=== PATIENT | female | born 1945 | race Caucasian/White ===

== ENCOUNTER → 2019-12-06 11:54 | Outpatient (BNVA) | payer MEDICARE, SELFPAY | PROVIDERS: Family Provider Nurse Practitioner; PCP Nurse Practitioner; Visit Provider Nurse Practitioner | DX: I10 Essential (primary) hypertension (principal); J44.9 Chronic obstructive pulmonary disease, unspecified; R20.9 Unspecified disturbances of skin sensation; F17.200 Nicotine dependence, unspecified, uncomplicated; F41.9 Anxiety disorder, unspecified; F32.9 Major depressive disorder, single episode, unspecified | CPT/HCPCS: 80053; 80061; 82607; 85025 ==

== ENCOUNTER → 2020-03-27 13:32 | Outpatient (BNVA) | payer MEDICARE, SELFPAY | PROVIDERS: Family Provider Nurse Practitioner; PCP Nurse Practitioner; Visit Provider Podiatrist Foot & Ankle Surgery | DX: M79.671 Pain in right foot (principal); M79.672 Pain in left foot | CPT/HCPCS: 73630 ==

== ENCOUNTER → 2020-07-26 14:47 | Outpatient (BNVA) | payer MEDICARE, SELFPAY | PROVIDERS: Family Provider Nurse Practitioner; PCP Nurse Practitioner; Visit Provider Nurse Practitioner | DX: E03.9 Hypothyroidism, unspecified (principal); I10 Essential (primary) hypertension | CPT/HCPCS: 80053; 80061; 84443 ==

== ENCOUNTER → 2021-01-22 14:37 | Outpatient (BNVA) | payer MEDICARE, SELFPAY | PROVIDERS: Family Provider Nurse Practitioner; PCP Nurse Practitioner; Visit Provider Nurse Practitioner | DX: I10 Essential (primary) hypertension (principal); J44.9 Chronic obstructive pulmonary disease, unspecified; E78.2 Mixed hyperlipidemia; F41.9 Anxiety disorder, unspecified | CPT/HCPCS: 80053; 80061; 85025 ==

== ENCOUNTER → 2021-01-25 13:38 | Outpatient (BNVA) | payer MEDICARE, SELFPAY | PROVIDERS: Family Provider Nurse Practitioner; PCP Nurse Practitioner; Visit Provider Nurse Practitioner | DX: M79.671 Pain in right foot (principal) | CPT/HCPCS: 73630 ==

== ENCOUNTER 2021-04-29 13:52 | Outpatient (CLI) | payer MEDICARE, SELFPAY ==
--- NOTE | 2021-04-29 14:00 | MM_ITS ---
WS: [id number] BILATERAL DIGITAL SCREENING MAMMOGRAPHY WITH CAD CLINICAL INFORMATION: Z12.39 - Encounter for other screening for malignant neop... HISTORY: Screening mammogram. No current complaints. COMPARISON: TECHNIQUE: Bilateral CC and MLO views. FINDINGS: Scattered fibroglandular densities bilaterally. Punctate and lucent centered calcifications. Biopsy m arker right breast with stable 7 mm ovoid asymmetry. Vascular calcification. No suspicious focal mass , asymmetry, calcifications, or architectural distortion. No evidence of malignancy. MM/[place] [id number] IMPRESSION: BI-RADS: 2-Benign FOLLOW UP: 1 Year Follow-up Recommend return to annual screening mammography.
== END 2021-04-29 13:53 | disposition home or self-care (01) ==
LOC: RADSHAW 13:55
PROVIDERS: Family Provider Nurse Practitioner; PCP Nurse Practitioner; Visit Provider Nurse Practitioner
DX: Z12.31 Encounter for screening mammogram for malignant neoplasm of breast (principal)
CPT/HCPCS: 77067

== ENCOUNTER 2021-05-16 14:56 | Outpatient (CLI) | payer MEDICARE, SELFPAY ==
--- NOTE | 2021-05-16 15:00 | USCV_ITS ---
Heather Ramesh Age: 75 Gender: F : 1945 Exam Date: 05/16/2021 15:23 Ordering Phys: Juliann Dejesus Technologist: Ju Rodriguez Exam Location: [facility] – [place] Indication: ESSENTIAL PRIMARY HYPERTENSION BP: 130 / 88 HR: 83 Rhythm: Sinus Technical Quality: Adequate MEASUREMENTS (Male / Female) Normal Values 2D ECHO LV Diastolic Diameter PLAX 3.5 cm 4.2 - 5.9 / 3.9 - 5.3 cm LV Systolic Diameter PLAX 1.0 cm IVS Diastolic Thickness 1.1 cm 0.6 - 1.0 / 0.6 - 0.9 cm IVS Systolic Thickness 1.7 cm LVPW Diastolic Thickness 0.9 cm 0.6 - 1.0 / 0.6 - 0.9 cm LVPW Systolic Thickness 1.5 cm LVOT Diameter 2.0 cm LV Ejection Fraction 2D Teich 96.0 % LV Ejection Fraction MOD 2C 76.0 % LV Ejection Fraction 2C AL 75.9 % LA Diameter 2.7 cm LA Width 2.4 cm LA Height 4.6 cm RA Width 3.7 cm RA Height 4.2 cm Aorta at Sinotubular Diameter 2.7 cm M-MODE Aortic Annulus Diameter 2.5 cm LA Ao Ratio MM 1.1 DOPPLER AV Peak Velocity 227.0 cm/s LVOT Peak Velocity 134.0 cm/s AV Area Cont Eq vti 2.2 cm squared AV Area Cont Eq pk 1.9 cm squared MV Peak Velocity 127.0 cm/s MV Area PHT 2.8 cm squared Mitral E to A Ratio 0.8 MV E' Velocity 52.0 cm/s Mitral E to MV E' Ratio 11.2 Mitral E to LV E' Lateral Ratio 10.5 Mitral E to LV E' Septal Ratio 12.1 TR Peak Velocity 121.7 cm/s TR Peak Gradient 5.9 mmHg Right Atrial Pressure 3.0 mmHg Pulmonary Artery Systolic Pressu 8.9 mmHg PV Peak Velocity 75.0 cm/s RV Acceleration Time 0.1 s RV Ejection Time 0.2 s RV AcT/ET 0.3 FINDINGS Left Ventricle Normal left ventricular cavity size. Normal left ventricular systolic function. No regional wall motion abnormalities. Left ventricular ejection fraction is estimated at 60%. Grade I/IV diastolic dysfunction (abnormal relaxation filling pattern), normal to mildly elevated filling pressures. Right Ventricle The right ventricle is normal in size and function. Right Atrium The right atrium is normal in size. Left Atrium The left atrium is normal in size. Mitral Valve Moderately thickened mitral valve. Moderate mitral annular calcification. No mitral valve stenosis. Trace mitral valve regurgitation. Aortic Valve Severe aortic valve calcification. No aortic valve stenosis. No aortic valve regurgitation. Tricuspid Valve Trace tricuspid valve regurgitation. Pulmonic Valve Structurally normal pulmonic valve without significant stenosis. There is no pulmonic regurgitation. Pericardium Normal pericardium without effusion. Aorta Normal ascending aorta dimension. CONCLUSIONS 1-Normal left ventricular cavity size. Normal left ventricular systolic function. No regional wall motion abnormalities. Left ventricular ejection fraction is estimated at 60%. Grade I/IV diastolic dysfunction (abnormal relaxation filling pattern), normal to mildly elevated filling pressures. 2-Severe aortic valve calcification. No aortic valve stenosis. No aortic valve regurgitation. 3-Moderately thickened mitral valve. Moderate mitral annular calcification. No mitral valve stenosis. Trace mitral valve regurgitation. 4-There is no pericardial effusion. 5-Pulmonary artery systolic pressure is within normal limits. 6-Right atrial pressure is around 5 mm of mercury. 7-There are no prior echocardiogram studies to compare. Ari Zavala MD (Electronically Signed) Final Date: 17 May 2021 19:05 S
== END 2021-05-16 14:57 | disposition home or self-care (01) ==
LOC: US 15:02
PROVIDERS: PCP Nurse Practitioner; Visit Provider Nurse Practitioner
DX: I10 Essential (primary) hypertension (principal); I08.0 Rheumatic disorders of both mitral and aortic valves
CPT/HCPCS: 80053; 80061; 93306

== ENCOUNTER 2021-08-09 07:55 | Outpatient (CLI) | payer MEDICARE, SELFPAY ==
--- NOTE | 2021-08-09 08:00 | USCV_ITS ---
Heather Ramesh Age: 75 Gender: F : 1945 Exam Date: 08/09/2021 08:24 Ordering Phys: Ari Zavala MD ([email or web address]) Technologist: Ju Rodriguez [place] [facility] [place]: carotid stenosis or occlusion of unspecified artery Risk Factors: Previous Vascular Surgery: Right Brachial BP: / Left Brachial BP: / Right Left Velocity (cm/s) Spectral Plaque Velocity (cm/s) Spectral Plaque Syst/Diast Broadening Syst/Diast Broadening 49.70/ 12.40 Prox CCA 63.20 / 14.50 59.00/ 15.50 Hetro Mid CCA 64.10 / 14.50 56.70/ 12.40 Homo Distal CCA 36.50 / 10.80 Hetro 71.00/ 21.00 Prox ICA 72.80 / 23.50 Hetro 84.60/ 17.10 Mid ICA 47.90 / 14.90 70.90/ 14.30 Distal ICA 71.10 / 26.50 131.50 ECA 153.10 1.43 ICA/CCA 1.14 Antegrade Vertebral Antegrade 58.10/ 16.20 cm/s 39.30/ 15.40 cm/s Tri Subclavian Tri 90.60 131.5 0 CONCLUSIONS Right ICA stenosis <50%. Moderate atheromatous plaque right carotid bulb/ICA. Left ICA stenosis <50%. Moderate atheromatous plaque left carotid bulb/ICA. Normal antegrade Doppler flow noted in the right vertebral artery. Normal antegrade Doppler flow noted in the left vertebral artery. Minesh Mahoney MD (Electronically Signed) Final Date: 09 August 2021 09:43 S
== END 2021-08-09 07:56 | disposition home or self-care (01) ==
LOC: US 07:59
PROVIDERS: PCP Nurse Practitioner; Visit Provider Internal Medicine Cardiovascular Disease
DX: I65.23 Occlusion and stenosis of bilateral carotid arteries (principal)
CPT/HCPCS: 93880

== ENCOUNTER → 2021-09-19 10:37 | Outpatient (BNVA) | payer MEDICARE, SELFPAY | PROVIDERS: PCP Nurse Practitioner; Visit Provider Nurse Practitioner | DX: I10 Essential (primary) hypertension (principal) | CPT/HCPCS: 80053; 80061; 84443; 85025 ==

== ENCOUNTER → 2022-02-24 15:54 | Outpatient (BNVA) | payer OTHER, SELFPAY | PROVIDERS: PCP Nurse Practitioner; Visit Provider Nurse Practitioner | DX: J44.9 Chronic obstructive pulmonary disease, unspecified (principal); I10 Essential (primary) hypertension; E78.2 Mixed hyperlipidemia; F41.9 Anxiety disorder, unspecified; I73.9 Peripheral vascular disease, unspecified | CPT/HCPCS: 80053; 80061; 85025 ==

== ENCOUNTER → 2022-07-14 09:23 | Outpatient (BNVA) | payer OTHER, SELFPAY | PROVIDERS: PCP Nurse Practitioner; Visit Provider Nurse Practitioner | DX: J44.9 Chronic obstructive pulmonary disease, unspecified (principal); I10 Essential (primary) hypertension; I73.9 Peripheral vascular disease, unspecified; E78.2 Mixed hyperlipidemia; F41.9 Anxiety disorder, unspecified; Z12.39 Encounter for other screening for malignant neoplasm of breast; F32.9 Major depressive disorder, single episode, unspecified; Z87.891 Personal history of nicotine dependence | CPT/HCPCS: 80053; 80061; 84443; 85025 ==

== ENCOUNTER 2022-08-30 17:25 | Inpatient (IN) | payer MEDICARE, SELFPAY ==
[2022-08-30] VITALS (8 sets, daily range): BP systolic 109–145; BP diastolic 68–81; PULSE 69–95; RESP 16–18; TEMP 36.6–36.7; O2SAT 91–98; BMI 24.5
--- NOTE | 2022-08-30 18:53 | XRR_ITS ---
PROCEDURE INFORMATION: Exam: XR Left Hip Exam date and time: 08/30/2022 7:11 PM Age: 77 years old Clinical indication: Injury or trauma; Fall; Blunt trauma (contusions or hematomas); Left; Hip; Additional info: Fall with left hip pain TECHNIQUE: Imaging protocol: Radiologic exam of the Left hip. Views: 2 or 3 views hip with pelvis when performed. COMPARISON: No relevant prior studies available. FINDINGS: Bones/joints: Left hip basicervical somewhat impacted displaced fracture. Soft tissues: Unremarkable. XR/XR hip LT 2-3V wo/w pel* [id number] IMPRESSION: Left hip basicervical somewhat impacted displaced fracture.
--- NOTE | 2022-08-30 19:04 | ED_ITS ---
Documented by User: SHARON Helton 08/31/22 01:09 HPI - Fall General: Chief Complaint: Fall Stated Complaint: Fall, left hip pain Time Seen by Provider: 08/30/22 18:53 History of Present Illness: Patient is a 77-year-old female who comes to the ED with left hip pain after fall. Past medical history of COPD and hypertension. Patient is not on any blood thinners at home. Before fall she was ambulatory without any assisting device. Fall occurred just prior to arrival. Patient says she was walking in her house and tripped through one of the doorways. She tried to catch her self, but her left hip hit the ground. She denies hitting her head, any loss of consciousness or headache. Since fall she is unable to bear any weight on left leg. She says at rest and sitting her pain is a 3 out of 10 but if she tries to do any weightbearing is a 10 out of 10. She also has a laceration on her left index finger. Denies any other injuries. She has not taken anything for pain before coming to the ED. patient says her last tetanus was within the past 10 years. Associated symptoms-after fall: Denies abdominal pain, chest pain, headache(s), hematuria or neck pain Review of Systems Const: Denies: fever(s), chills or fatigue Eyes: Denies: change in vision or eye discomfort ENMT: Denies: throat pain, odynophagia, nasal discharge or nasal congestion Card: Denies: chest pain, palpitations, edema, swelling of feet/ankles, dyspnea on exertion or orthopnea Resp: Denies: dyspnea, productive cough or non-productive cough GI: Denies: abdominal pain, nausea, vomiting, diarrhea, constipation or hematochezia : Denies: flank pain, dysuria or hematuria Musc: Reports: extremity pain (Left hip pain); Denies: neck pain, back pain or extremity swelling Skin/Breast: Denies: rash or new lesions Neuro: Denies: headache(s), numbness in extremities or weakness in extremities PFS ED PFSH: Medical History (Updated 09/03/22 @ 00:02 by ) Anxiety and depression COPD (chronic obstructive pulmonary disease) Essential (primary) hypertension Left displaced femoral neck fracture Mixed hyperlipidemia Murmur Personal history of nicotine dependence Vitamin D deficiency Surgical History History of breast biopsy Left Negative at age 20's Family History Family/Other Nicotine addiction Social History Smoking and tobacco status: current every day smoker cigarettes Packs smoked per day: 0.5 Second hand smoke exposure: Yes Smoking risk assessment/counseling performed?: Yes Alcohol intake: never Desire information about alcohol rehabilitation?: No Counseling given: No Desire information about substance/drug rehabilitation?: No Counseling given: No Adopted: No Caregiver/support person: No Lives independently: Yes Household members: spouse Housing: House Marital status: Number of children: 6 service: No Current occupational status: unemployed Current occupational exposures/hazards: No Pets and animals: Yes History of recent travel: No Current gender identity: Female Physical Exam Const: COMMON NORMALS: patient oriented x3 and alert GENERAL APPEARANCE: cooperative HENMT: COMMON NORMALS: normocephalic HEAD & SCALP: normocephalic MOUTH: Normal oral and palatal mucosa present THROAT: posterior oropharynx normal and uvula midline Neck/C-Spine: COMMON NORMALS: supple GENERAL: Yes normal visual inspection Resp: COMMON NORMALS: normal respiratory effort, No retractions, No use of acc essory muscles and clear to auscultation bilaterally AUSCULTATION: clear to auscultation bilaterally Cardio: COMMON NORMALS: regular rate, regular rhythm, S1 normal heart sound present, S2 normal heart sound present, No gallops present (Cardio), No clicks present (Cardio), No murmurs present (Cardio) and Peripheral pulses 2+ throughout RATE: regular rate RHYTHM: regular rhythm HEART SOUNDS: S1 normal heart sound present and S2 normal heart sound present PERIPHERAL PULSES: Peripheral pulses 2+ throughout GI: COMMON NORMALS: Normal to inspection, nondistended, normoactive bowel sounds present, Soft to palpation, non-tender and no masses PALPATION: Yes Soft to palpation : COMMON NORMALS: Yes no CVA tenderness BLADDER/KIDNEY EXAM: Yes no CVA tenderness Back/Pelvis: COMMON NORMALS: no CVA tenderness Extremity: NARRATIVE EXTREMITY EXAM: Tenderness over lateral aspect of left hip. Pain with range of motion left hip. Neurovascular intact distally. No visible left leg shortening or external rotation noted. Neuro: COMMON NORMALS: patient oriented x3 SENSORIUM/ORIENTATION: Yes alert Skin: GENERAL SKIN EXAM: dry skin Course Consultations: Consultation #1: I contacted Dr. Hercules the orthopedic surgeon corrosion prevention metal sprayer and told him about patient case. He wanted hospitalist to admit patient and he would consult for surgery tomorrow morning. Vital Signs: Vital signs: Vital Signs Temperature 98.1 F 09/02/22 13:46 Pulse Rate 92 09/02/22 13:46 Respiratory Rate 17 09/02/22 13:46 Blood Pressure 118/62 09/02/22 13:46 Pulse Oximetry 93 09/02/22 13:46 Oxygen Delivery Me thod 09/02/22 11:15 Oxygen Flow Rate 3 09/02/22 11:15 MDM - Fall Medical Decision Making Patient is a 77-year-old female comes to the ED with left hip pain after having a fall. Vitals are stable. Tenderness over lateral aspect of left hip. Pain with range of motion left hip. Neurovascular intact distally. No visible left leg shortening or external rotation noted. X-ray of left hip shows a basicervical impacted displaced fracture of left hip. I contacted Dr. Hercules the orthopedic surgeon corrosion prevention metal sprayer and told him about patient case. He wanted hospitalist to admit patient and he would consult for surgery tomorrow morning. Dr. Baxter placed the admitting orders. Lab Data I reviewed the patient's lab results. : 09/02/22 02:54 09/02/22 02:54 Radiology Impressions Femur X-Ray 08/30/22 19:46 IMPRESSION: Acute subcapital fracture of the left hip. Please see CT left hip report from same date. Knee X-Ray 08/30/22 19:46 IMPRESSION: No acute fracture demonstrated. Pelvis X-Ray 08/30/22 19:46 IMPRESSION: 1. Acute subcapital left hip fracture. 2. Pelvic bones appear intact. No pelvic fracture. Hip CT 08/30/22 19:53 IMPRESSION: Acute subcapital fracture of the left hip, as above. Chest X-Ray 08/30/22 20:52 IMPRESSION: 1. The lungs are hyperinflated, consistent with COPD. 2. No acute abnormality demonstrated. Hip/Pelvis X-Ray 08/31/22 10:08 IMPRESSION: Normal appearing left total hip arthroplasty. Laboratory Results WBC 17.0 10^3/uL (4.0-10.0) H 08/30/22 20:05 RBC 5.11 10^6/uL (4.1-5.3) 08/30/22 20:05 Hgb 15.2 g/dL (11.5-15.3) 08/30/22 20:05 Hct 45.5 % (37.0-47.0) 08/30/22 20:05 MCV 89.0 fl (81-99) 08/30/22 20:05 MCH 29.7 pg (28.0-34.0) 08/30/22 20:05 MCHC 33.4 g/dL (30.0-36.0) 08/30/22 20:05 RDW 12.6 % (12.1-15.1) 08/30/22 20:05 Plt Count 216 10^3/cmm (130-400) 08/30/22 20:05 MPV 9.6 fL (7.4-10.4) 08/30/22 20:05 Neut % (Auto) 88.1 % 08/30/22 20:05 Lymph % (Auto) 6.3 % 08/30/22 20:05 [place] % (Auto) 4.6 % 08/30/22 20:05 Eos % (Auto) 0.1 % 08/30/22 20:05 Baso % (Auto) 0.4 % 08/30/22 20:05 Neut # (Auto) 14.93 10^3/uL (1.8-7.7) H 08/30/22 20:05 Lymph # (Auto) 1.1 10^3/uL (0.8-4.8) 08/30/22 20:05 [place] # (Auto) 0.8 10^3/uL (0.2-0.9) 08/30/22 20:05 Eos # (Auto) 0.0 10^3/uL (0.0-0.8) 08/30/22 20:05 Baso # (Auto) 0.1 10^3/uL (0.0-0.1) 08/30/22 20:05 Nucleated RBC % (auto) 0 % 08/30/22 20:05 Nucleated RBCs # 0.0 /100WBC 08/30/22 20:05 PT Cancelled 08/30/22 20:05 INR Cancelled 08/30/22 20:05 APTT Cancelled 08/30/22 20:05 Sodium 128 mmol/L (136-145) L 08/30/22 20:05 Potassium 2.9 mmol/L (3.5-5.1) L 08/30/22 20:05 Chloride 87 mmol/L (98-107) L 08/30/22 20:05 Carbon Dioxide 29 mmol/L (22-29) 08/30/22 20:05 Anion Gap 14.9 (5-19) 08/30/22 20:05 BUN 16 mg/dL (8-23) 08/30/22 20:05 Creatinine 0.7 mg/dL (0.5-0.9) 08/30/22 20:05 GFR Calculation Not Reportable 08/30/22 20:05 Glucose 125 mg/dL (65-115) H 08/30/22 20:05 Calculated Osmolality 269 mOsm/kg (285-295) L 08/30/22 20:05 Calcium 9.9 mg/dL (8.5-10.5) 08/30/22 20:05 Magnesium 2.3 mg/dL (1.7-2.3) 08/30/22 20:05 Total Bilirubin 0.5 mg/dL (0.15-1.2) 08/30/22 20:05 AST 21 U/L (0-32) 08/30/22 20:05 ALT 8 U/L (0-33) 08/30/22 20:05 Alkaline Phosphatase 76 U/L (35-105) 08/30/22 20:05 Total Protein 7.3 g/dL (6.6-8.7) 08/30/22 20:05 Albumin 4.3 g/dL (3.5-5.2) 08/30/22 20:05 Globulin 3.0 g/dL (1.3-4.6) 08/30/22 20:05 Urine Color Dark yellow (Yellow) 08/30/22 19:35 Urine Appearance Cloudy (CLEAR) A 08/30/22 19:35 Urine pH 7 (5-7) 08/30/22 19:35 Ur Specific [place] 1.005 (1.005-1.030) 08/30/22 19:35 Urine Protein 1+ (Negative) H 08/30/22 19:35 Urine Glucose (UA) Norm (Normal) 08/30/22 19:35 Urine Ketones 1+ (Negative) H 08/30/22 19:35 Urine Blood 2+ (Negative) H 08/30/22 19:35 Urine Nitrate Negative (Negative) 08/30/22 19:35 Urine Bilirubin 1+ (Negative) H 08/30/22 19:35 Urine Urobilinogen 1 mg/dL (Negative) H 08/30/22 19:35 Ur Leukocyte Esterase 1+ (Negative) H 08/30/22 19:35 Urine RBC 5-10 /hpf (0-2) H 08/30/22 19:35 Urine WBC 5-10 /hpf (0-5) H 08/30/22 19:35 Ur Squamous Epith Cells 10-15 /hpf (0-5) H 08/30/22 19:35 Triple Phos Crystals 0-4 /hpf H 08/30/22 19:35 Amorphous Sediment 1+ /hpf 08/30/22 19:35 Urine Bacteria 1+ /hpf (NONE) H 08/30/22 19:35 Urine Mucus 1+ /hpf 08/30/22 19:35 Discharge Plan Discharge Patient Disposition: Admitted As Inpatient Admit Provider: Gabe Benavides Clinical Impression: Fracture of left hip Condition: Stable Discharge Diet: Advance as tolerated Discharge Activity: Limit activity as instructed Coding Level of Care Code [employer] Development Analyst for Chg Fwd Exam Comprehensive Documented by User: Robert Mullen MD 09/07/22 17:05 HPI - Fall General: Chief Complaint: Fall Stated Complaint: Fall, left hip pain Time Seen by Provider: 08/30/22 18:53 PFSH ED PFSH: Medical History (Updated 09/03/22 @ 00:02 by ) Anxiety and depression COPD (chronic obstructive pulmonary disease) Essential (primary) hypertension Left displaced femoral neck fracture Mixed hyperlipidemia Murmur Personal history of nicotine dependence Vitamin D deficiency Surgical History History of breast biopsy Left Negative at age 20's Family History Family/Other Nicotine addiction Social History Smoking and tobacco status: current every day smoker cigarettes Packs smoked per day: 0.5 Second hand smoke exposure: Yes Smoking risk assessment/counseling performed?: Yes Alcohol intake: never Desire information about alcohol rehabilitation?: No Counseling given: No Desire information about substance/drug rehabilitation?: No Counseling given: No Adopted: No Caregiver/support person: No Lives independently: Yes Household members: spouse Housing: House Marital status: Number of children: 6 service: No Current occupational status: unemployed Current occupational exposures/hazards: No Pets and animals: Yes History of recent travel: No Current gender identity: Female Course Vital Signs: Vital signs: Vital Signs Temperature 98.1 F 09/02/22 13:46 Pulse Rate 92 09/02/22 13:46 Respiratory Rate 17 09/02/22 13:46 Blood Pressure 118/62 09/02/22 13:46 Pulse Oximetry 93 09/02/22 13:46 Oxygen Delivery Me thod 09/02/22 11:15 Oxygen Flow Rate 3 09/02/22 11:15 MDM - Fall Medical Decision Making Patient is a 77-year-old female comes to the ED with left hip pain after having a fall. Vitals are stable. Tenderness over lateral aspect of left hip. Pain with range of motion left hip. Neurovascular intact distally. No visible left leg shortening or external rotation noted. X-ray of left hip shows a basicervical impacted displaced fracture of left hip. I contacted Dr. Hercules the orthopedic surgeon corrosion prevention metal sprayer and told him about patient case. He wanted hospitalist to admit patient and he would consult for surgery tomorrow morning. Dr. Baxter placed the admitting orders. I discussed this case with SHARON Helton. I have reviewed documentation and imaging. Robert Mullen MD Emergency Medicine Lab Data : 09/02/22 02:54 09/02/22 02:54 Radiology Impressions Femur X-Ray 08/30/22 19:46 IMPRESSION: Acute subcapital fracture of the left hip. Please see CT left hip report from same date. Knee X-Ray 08/30/22 19:46 IMPRESSION: No acute fracture demonstrated. Pelvis X-Ray 08/30/22 19:46 IMPRESSION: 1. Acute subcapital left hip fracture. 2. Pelvic bones appear intact. No pelvic fracture. Hip CT 08/30/22 19:53 IMPRESSION: Acute subcapital fracture of the left hip, as above. Chest X-Ray 08/30/22 20:52 IMPRESSION: 1. The lungs are hyperinflated, consistent with COPD. 2. No acute abnormality demonstrated. Hip/Pelvis X-Ray 08/31/22 10:08
--- NOTE | 2022-08-30 19:46 | XRR_ITS ---
PROCEDURE INFORMATION: Exam: XR Left Knee Exam date and time: 08/30/2022 8:11 PM Age: 77 years old Clinical indication: Injury or trauma; Fall; Blunt trauma; Hip; Left; Additional info: Hip fx-pre surgery imaging TECHNIQUE: Imaging protocol: Radiologic exam of the Left knee. Views: 3 views. COMPARISON: [place] [id number] ORTH 03/27/2020 1:37 PM FINDINGS: Bones/joints: Mild degenerative narrowing of the medial and lateral joint compartments. No fracture or other acute osseous abnormality. No joint effusion demonstrated. Soft tissues: Calcified enthesophyte in the distal quadriceps tendon at the patellar attachment. Coarse 2 cm calcification noted in the medial soft tissues, likely related to old injury. XR/XR knee LT 3V* [id number] IMPRESSION: No acute fracture demonstrated.
--- NOTE | 2022-08-30 19:46 | XRR_ITS ---
PROCEDURE INFORMATION: Exam: XR Pelvis Exam date and time: 08/30/2022 8:20 PM Age: 77 years old Clinical indication: Injury or trauma; Fall; Blunt trauma (contusions or hematomas); Left; Hip; Additional info: Hip fx-pre surgery imaging TECHNIQUE: Imaging protocol: Radiologic exam of the pelvis. Views: 1 or 2 view. COMPARISON: CR (PELVIS, ) 08/30/2022 7:11 PM FINDINGS: Bones/joints: Acute subcapital left hip fracture. Fracture fragments are in varus alignment. No left hip dislocation. Pelvic bones appear intact. No pelvic fracture. Soft tissues: Unremarkable. XR/XR pelvis 1-2V* [id number] IMPRESSION: 1. Acute subcapital left hip fracture. 2. Pelvic bones appear intact. No pelvic fracture.
--- NOTE | 2022-08-30 19:46 | XRR_ITS ---
PROCEDURE INFORMATION: Exam: XR Left Femur Exam date and time: 08/30/2022 8:16 PM Age: 77 years old Clinical indication: Injury or trauma; Fall; Blunt trauma; Hip; Left; Additional info: Hip fx-pre surgery imaging TECHNIQUE: Imaging protocol: Radiologic exam of the Left femur. Views: 2 views. COMPARISON: CR (LOW EXM, ) 08/30/2022 8:11 PM FINDINGS: Bones/joints: Acute subcapital fracture of the left hip. Mid/distal femur is intact. Soft tissues: The soft tissues appear unremarkable. Vasculature: There are atherosclerotic calcifications demonstrated. XR/XR femur LT min 2V* [id number] IMPRESSION: Acute subcapital fracture of the left hip. Please see CT left hip report from same date.
--- NOTE | 2022-08-30 19:53 | CTR_ITS ---
PROCEDURE INFORMATION: Exam: CT Left Lower Extremity Without Contrast, Hip Exam date and time: 08/30/2022 8:27 PM Age: 77 years old Clinical indication: Injury or trauma; Fall; Blunt trauma; Hip; Left; Additional info: Left hip fracture TECHNIQUE: Imaging protocol: CT of the Left lower extremity without contrast was performed. Exam focused on the hip. Radiation optimization: All CT scans at this facility use at least one of these dose optimization techniques: automated exposure control; mA and/or kV adjustment per patient size (includes targeted exams where dose is matched to clinical indication); or iterative reconstruction. COMPARISON: CR (PELVIS, ) 08/30/2022 7:11 PM RADIATION DOSE METRICS: Total DLP (mGy-cm): 288.51 FINDINGS: Bones/joints: Acute subcapital fracture of the left hip. The fracture is mildly impacted. Fracture fragments are in varus alignment. Mild degenerative narrowing of the left hip joint. No dislocation. Left acetabulum is intact. Soft tissues: Subcutaneous edema/contusion noted overlying the left hip. No hematoma noted. Musculature is unremarkable. Vasculature: There are atherosclerotic calcifications demonstrated. CT/CT hip LT wo con* [id number] IMPRESSION: Acute subcapital fracture of the left hip, as above.
[2022-08-30] MEDS: oxyCODONE 5 mg IR Tab/Cap PO (19:54)
[2022-08-30 20:14] LABS: Basophils # 0.1 10^3/uL (0.0-0.1); Basophils % 0.4 %; Eosinophils % 0.1 %; Hematocrit 45.5 % (37.0-47.0); Hemoglobin 15.2 g/dL (11.5-15.3); Lymphocytes # 1.1 10^3/uL (0.8-4.8); Lymphocytes % 6.3 %; Mean Corpuscular HGB Conc 33.4 g/dL (30.0-36.0); Mean Corpuscular Hemoglobin 29.7 pg (28.0-34.0); Mean Platelet Volume 9.6 fL (7.4-10.4); Monocytes # 0.8 10^3/uL (0.2-0.9); Monocytes % 4.6 %; Neutrophils # 14.93 10^3/uL (1.8-7.7); Neutrophils % 88.1 %; Nucleated Red Blood Cells % 0 %; Platelet Count 216 10^3/cmm (130-400); Red Blood Count 5.11 10^6/uL (4.1-5.3); Red Cell Distribution Width 12.6 % (12.1-15.1)
[2022-08-30 20:37] LABS: Alanine Aminotransferase 8 U/L (0-33); Albumin Level 4.3 g/dL (3.5-5.2); Alkaline Phosphatase 76 U/L (35-105); Anion Gap 14.9 (5-19); Aspartate Amino Transferase 21 U/L (0-32); Blood Urea Nitrogen 16 mg/dL (8-23); Calcium 9.9 mg/dL (8.5-10.5); Carbon Dioxide 29 mmol/L (22-29); Chloride 87 mmol/L (98-107); Glucose 125 mg/dL (65-115); Osmolality Calculated 269 mOsm/kg (285-295); Sodium 128 mmol/L (136-145); Total Bilirubin 0.5 mg/dL (0.15-1.2); Total Protein 7.3 g/dL (6.6-8.7)
[2022-08-30 20:39] LABS: Potassium 2.9 mmol/L (3.5-5.1)
--- NOTE | 2022-08-30 20:52 | XRR_ITS ---
PROCEDURE INFORMATION: Exam: XR Chest Exam date and time: 08/30/2022 9:12 PM Age: 77 years old Clinical indication: Injury or trauma; Fall; Blunt trauma (contusions or hematomas); Additional info: New o2 req TECHNIQUE: Imaging protocol: Radiologic exam of the chest. Views: 1 view. COMPARISON: No relevant prior studies available. FINDINGS: Lungs: The lungs are hyperinflated, consistent with COPD. No consolidative pulmonary infiltrates are noted. Pleural spaces: No pleural effusion. No pneumothorax. Heart/Mediastinum: No cardiomegaly. Vasculature: The thoracic aorta is atherosclerotic. Bones/joints: Degenerative thoracic spine changes are noted. XR/XR chest 1V portable [id number] IMPRESSION: 1. The lungs are hyperinflated, consistent with COPD. 2. No acute abnormality demonstrated.
[2022-08-30] MEDS: potassium chloride ER 20 mEq Tablet 40 MEQ PO (21:01)
[2022-08-30 21:16] LABS: Add Urine Microscopic? YES; Bilirubin Urine 1+ (Negative); Blood Urine 2+ (Negative); Glucose Urine UA Norm (Normal); Ketones Urine 1+ (Negative); Leukocyte Esterase Urine 1+ (Negative); Nitrate Urine Negative (Negative); Protein Urine 1+ (Negative); Specific Gravity, Urine 1.005 (1.005-1.030); Urine Appearance Cloudy (CLEAR); Urine Color Dark Yellow (Yellow); Urobilinogen Urine 1 mg/dL (Negative); pH Urine 7 (5-7)
--- NOTE | 2022-08-30 21:16 | PC.NURSE ---
Report called to WARNER Khan at [phone]
[2022-08-30 21:19] LABS: Add Urine Culture? No; Amorphous Sediment Urine 1+ /hpf; Bacteria Urine 1+ /hpf; Mucus Urine 1+ /hpf
[2022-08-30 21:21] LABS: Triple Phosphate Crystal Urine 0-4 /hpf
--- NOTE | 2022-08-30 21:24 | PM.MISC ---
Miscellaneous Note Purpose of Documentation: Orthopedic note update: Full orthopedic consult note to follow in the morning. Patient's chart reviewed. I was contacted by emergency department for patient having a left displaced femoral neck fracture. Personally reviewed and interpreted the images myself. Patient's findings consistent with a displaced left femoral neck fracture. Patient is a 77-year-old. History of COPD and hypertension. Not requiring O2 nasal cannula. Patient is on Plavix for anticoagulation. Patient is a community ambulator per the emergency department. At this point time reviewing of imaging my recommendation would be for a left hip hemiarthroplasty for early mobilization and pain control. My plan will be to do this through a posterior approach and utilizing cementation technique. Patient does have an elevated white count likely secondary to her fracture. Her hemoglobin is stable and not anemic. This point time would recommend patient be n.p.o. at midnight with plan for surgical intervention tomorrow morning in order to optimize patient's outcomes. This will be pending patient being cleared by the internal medicine team as well as the anesthesia department in hopes that we can optimize patient best for surgical intervention. Being that patient is on Plavix would recommend this be held at this point time as well as hold any morning anticoagulation to help with hemostasis during surgery. If patient's able to be medically cleared and optimized we will proceed with surgery tomorrow morning for left hip hemiarthroplasty. Thank you for allow me to partake in the care of this patient full consult note will be in the morning when I seen and evaluated the patient myself. Appreciate internal medicine for being primary and the consultation. Jerel Hercules DO Orthopedic Surgeon
--- NOTE | 2022-08-30 21:27 | PM.HP ---
Providers/Chief Complaint Admitting Physician: Gabe Benavides Primary Care Provider: SULEMAN Dawkins Chief Complaint: Fall, left hip pain History of Present Illness Pleasant 77-year-old lady with history of COPD, HTN, carotid disease, cigarette smoking, came into ER for evaluation after a fall sustained after stubbing her toe and falling down, resulting in acute subcapital fracture of left hip. She also sustained a laceration of left index finger. She tells me she otherwise has been at baseline state of health. Denies any other recent complaints. In ER she was noted to have low oxygen level and is started on oxygen supplementation. She states not normally using supplemental oxygen. She is noted afebrile. Heart rate ranging 80s-90s. WBC count noted elevated 17,000. Sodium 128, potassium 2.9. Glucose 125. UA and chest x-ray are ordered. Review of Systems Const: Denies: fever(s), chills, body aches or malaise Eyes: Denies: change in vision, eye discomfort or eye redness ENMT: Denies: ear or mastoid pain Card: Denies: chest pain, edema, pre-syncope or dyspnea on exertion Resp: Denies: dyspnea, productive cough, change in phlegm color or hemoptysis GI: Denies: abdominal pain, nausea, vomiting, diarrhea, constipation, hematochezia or melena : Denies: flank pain, urinary frequency or hematuria Musc: Reports: joint pain (L hip); Denies: back pain or joint redness Skin/Breast: Denies: rash or new lesions Neuro: Denies: headache(s), numbness in extremities, weakness in extremities, dizziness, confusion or seizure-like activity Darius/Lymph: Denies: easy bleeding or tender lymph nodes All/Imm: Denies: urticaria or tongue swelling Medications/Allergies Home Medications Medication Instructions Recorded Confirmed Last Taken Type cholecalciferol (vitamin D3) 125 5,000 unit PO BID 12/06/19 07/14/22 Unknown History mcg (5,000 unit) disintegrating tablet coenzyme Q10 100 mg capsule (Co 100 mg PO DAILY 06/18/21 07/14/22 Unknown History Q-10) imiquimod 5 % topical cream packet 1 applic topical .5 night week #24 08/08/21 07/14/22 Unknown Rx (Aldara) ea cimetidine 200 mg tablet (Tagamet 200 mg PO QID #30 tabs 12/03/21 07/14/22 Unknown Rx HB) Disposable nebulizer circuit with #1 ea 12/09/21 07/14/22 Unknown Rx mask albuterol sulfate 2.5 mg/3 mL 2.5 mg (3 mL) inhalation Q4H PRN 07/14/22 07/14/22 Unknown Rx (0.083 %) solution for nebulization shortness of breath or wheezing #180 mL albuterol sulfate 90 mcg/actuation 2 puff inhalation Q6H PRN 07/14/22 07/14/22 Unknown Rx aerosol inhaler shortness of breath or wheezing #8.5 grams budesonide 0.5 mg/2 mL suspension 0.5 mg (2 mL) inhalation BID #60 mL 07/14/22 07/14/22 Unknown Rx for nebulization (Pulmicort) budesonide 160 mcg-glycopyr 9 2 inh inhalation BID #10.7 grams 07/14/22 07/14/22 Unknown Rx mcg-formot 4.8 mcg/actuation HFA inhaler (Breztri Aerosphere) chlorthalidone 50 mg tablet 50 mg PO DAILY #30 tabs 07/14/22 07/14/22 Unknown Rx clopidogrel 75 mg tablet (Plavix) 75 mg PO DAILY #30 tabs 07/14/22 07/14/22 Unknown Rx magnesium oxide 400 mg PO BID #60 tabs 07/14/22 07/14/22 Unknown Rx nifedipine 60 mg tablet,extended 60 mg PO DAILY #30 tabs 07/14/22 07/14/22 Unknown Rx release 24 hr (Procardia XL) potassium chloride 8 mEq 8 meq PO DAILY #30 caps 07/14/22 07/14/22 Unknown Rx capsule,extended release rosuvastatin 10 mg tablet (Crestor) 10 mg PO DAILY #30 tabs 07/14/22 07/14/22 Unknown Rx sertraline 50 mg tablet (Zoloft) 50 mg PO BID #60 tabs 07/14/22 07/14/22 Unknown Rx Allergies Allergy/AdvReac Type Severity Reaction Status Date / Time No Known Allergies Allergy Verified 07/14/22 09:28 PFSH Acute PFSH: Medical History Anxiety and depression COPD (chronic obstructive pulmonary disease) Essential (primary) hypertension Mixed hyperlipidemia Murmur Personal history of nicotine dependence Vitamin D deficiency Surgical History History of breast biopsy Left Negative at age 20's Family History Family/Other Nicotine addiction Social History Smoking and tobacco status: current every day smoker cigarettes Packs smoked per day: 0.5 Second hand smoke exposure: Yes Smoking risk assessment/counseling performed?: Yes Alcohol intake: never Desire information about alcohol rehabilitation?: No Counseling given: No Desire information about substance/drug rehabilitation?: No Counseling given: No Adopted: No Caregiver/support person: No Lives independently: Yes Household members: spouse Housing: House Marital status: Number of children: 6 service: No Current occupational status: unemployed Current occupational exposures/hazards: No Pets and animals: Yes History of recent travel: No Current gender identity: Female Vitals/I&O/Wt Last Vital Signs Temp 97.8 F 08/30/22 17:44 Pulse 95 08/30/22 21:00 Resp 18 08/30/22 21:00 BP 139/81 08/30/22 21:00 Pulse Ox 94 08/30/22 21:00 O2 Del Method 08/30/22 21:00 O2 Flow Rate 2 08/30/22 21:00 Weight last 48 hrs Weight 68.946 kg Physical Exam Narrative: accompanies her at bedside. Const: COMMON NORMALS: patient oriented x3 and alert GENERAL APPEARANCE: cooperative ORIENTATION/CONSCIOUSNESS: Yes awake HENMT: COMMON NORMALS: oropharynx normal Neck/C-Spine: COMMON NORMALS: no JVD Resp: COMMON NORMALS: normal respiratory effort and clear to auscultation bilaterally AUSCULTATION: clear to auscultation bilaterally and diminished lung sounds Cardio: COMMON NORMALS: no JVD, regular rhythm, S1 normal heart sound present, S2 normal heart sound present and No murmurs present (Cardio) RHYTHM: regular rhythm HEART SOUNDS: S1 normal heart sound present and S2 normal heart sound present GI: COMMON NORMALS: Normal to inspection, nondistended, normoactive bowel sounds present, Soft to palpation and non-tender PALPATION: Yes Soft to palpation Extremity: COMMON NORMALS: no joint enlargement and no pedal edema OTHER: Everted, shortened LLE Neuro: COMMON NORMALS: patient oriented x3 and moves all extremities SENSORIUM/ORIENTATION: Yes alert Skin: COMMON NORMALS: no rashes or lesions noted GENERAL SKIN EXAM: no rashes or lesions noted Data : 08/30/22 20:05 08/30/22 20:05 A&P Assessment and plan (1) Closed left hip fracture: Sustained left hip fracture after mechanical fall after stubbing her toe, also sustained left index finger laceration. Possible contribution from hyponatremia. She does have underlying COPD, smoking history. Reports sees Dr. Quinonez in office, looks like with HTN, HLD, also history of mild carotid stenosis. She is on Plavix. Monitor for anemia, discussed with her and her . She is interested in seeking surgical repair. Discussed with her risk would be somewhat above average, slightly high risk of serious complication 1.7%, 1.9%, slightly high risk of pneumonia, cardiac complication. Elevated risk of DC to SNF 6.2%. She does have an elevated risk of postoperative delirium, 4.3%, new ability 8 use risk 10.3%. She otherwise does not appear to be in COPD exacerbation, and other conditions appear at baseline. We discussed with her and her consideration of timing of surgery, but no additional optimization currently would be beneficial to delay surgery. (2) Hypokalemia: Replaced. Check magnesium. Follow-up potassium level. (3) Hyponatremia: Secondary to thiazide. Hold chlorthalidone. Regular diet. Recheck sodium. (4) Abnormal urinalysis: Abnormal urinalysis 5-10 RBC, 5-10 WBC, but also 10-15 squamous epithelial cells. She denies any urinary symptoms. We will repeat to confirm clearance. Please confirm clearance of microscopic hematuria as well, otherwise with smoking history may need additional follow-up. Plan Smoking addiction: We discussed with her for 3 and half minutes smoking cessation. She smokes probably about half pack a day. She understands would benefit from quitting smoking. She is agreeable with nicotine replacement while she is here in hospital, patch, lozenges as needed. HTN HLD Carotid artery disease Requested home medications to be confirmed. Please review and resume once available. Attestations Medical Necessity Statement*: Admission of over 2 midnights anticipated for assessment of management of left hip fracture and lady on Plavix. Coding Level of Care Code Acute Secretary To Board [employer] Commissioners for Chg Fwd Diagnoses Closed left hip fracture S72.002A Hypokalemia E87.6 Hyponatremia E87.1 Abnormal urinalysis R82.90
[2022-08-30 21:38] LABS: Partial Thromboplastin Time 28.5 SECONDS (23.9-36.7)
--- NOTE | 2022-08-30 21:39 | PC.NURSE ---
Addendum entered by Glenys Tucker LPN 08/30/22 23:33: Drsgs are to Left 4th and 5th fingers Original Note: ADMIT NOTE Pt received to floor from ER at 2130. Is alert and oriented. Says she tripped and fell. Was unable to bear wt on left leg. Denies any dizziness prior to fall. Left leg with slight shortening and pedal pulse is palpable. Did well with movement over to bed, turning to remove sheet underneath pt and with changing of clothes into gown. Does have pain with movement but says is not too bad Has bruises to both left hip and right hip/buttock. Dressings to left middle and 4th fingers. O2 in place at 2l per NC. Denies use of O2 at home. Oriented to room and RN completing admission assessment
[2022-08-30 22:14] LABS: Magnesium 2.3 mg/dL (1.7-2.3)
[2022-08-30] MEDS: heparin 5,000 unit/mL INJ 1 mL 5000 UNIT SUBCUT (22:18)
[2022-08-30] MEDS: nicotine 14 mg Patch 1 PATCH TRANSDERMA (22:18)
[2022-08-30] MEDS: ketorolac 30 mg/mL INJ IVP (22:31)
[2022-08-31] VITALS (25 sets, daily range): BP systolic 91–170; BP diastolic 58–74; PULSE 74–92; RESP 12–22; TEMP 36.5–37.1; O2SAT 90–100
[2022-08-31] MEDS: ipratropium-albuterol 3 mL Neb INHALATION ×3 (02:36→20:03)
[2022-08-31 05:18] LABS: Alanine Aminotransferase 6 U/L (0-33); Alkaline Phosphatase 66 U/L (35-105); Blood Urea Nitrogen 16 mg/dL (8-23); Calcium 9.4 mg/dL (8.5-10.5); Carbon Dioxide 30 mmol/L (22-29); Chloride 92 mmol/L (98-107); Globulin 2.3 g/dL (1.3-4.6); Glucose 112 mg/dL (65-115); Osmolality Calculated 278 mOsm/kg (285-295); Sodium 133 mmol/L (136-145); Total Bilirubin 0.7 mg/dL (0.15-1.2); Total Protein 6.3 g/dL (6.6-8.7)
[2022-08-31 05:22] LABS: Anion Gap 14.4 (5-19); Aspartate Amino Transferase 18 U/L (0-32); Potassium 3.4 mmol/L (3.5-5.1)
[2022-08-31] MEDS: morphine 4 mg/mL SDV 1 mL 2 MG IVP (05:22)
--- NOTE | 2022-08-31 05:26 | PC.NURSE ---
OR PREP Pt cleansed with Chlorhexadine wipes and placed in clean gown. Preop checklist has been completed. Has been NPO since midnight
--- NOTE | 2022-08-31 07:35 | P.CONIM_ITS ---
Providers/Reason For Consult Consulting Physician/Specialty*: Jerel Hercules DO/orthopedic surgery Reason for Consult*: displaced left femoral neck fracture Attending Physician: Gabe Benavides Primary Care Provider: SULEMAN Dawkins History of Present Illness History of Present Illness Heather Ramesh is a 77 year old female sustained a ground-level fall last night. Patient denies loss of consciousness. Patient is a community ambulator at baseline. She does have a history of COPD where she does take inhalers. She is not on home O2. She is on a Plavix daily. Patient did not utilize a walker prior to injury denies any previous left hip pain prior to her injury. She was subsequently brought into the emergency department found to have a displaced left femoral neck fracture and the orthopedic surgery team was consulted. Internal medicine has admitted patient. Review of Systems General: Reports: 10 or more systems reviewed and unremarkable except in HPI and below Const: Denies: fever(s) or chills Card: Denies: chest pain Resp: Denies: dyspnea GI: Denies: abdominal pain, nausea or vomiting Musc: Reports: extremity pain and joint pain Neuro: Denies: numbness in extremities Medications/Allergies Home Medications Medication Instructions Recorded Confirmed Last Taken Type cholecalciferol (vitamin D3) 125 5,000 unit PO BID 12/06/19 07/14/22 Unknown History mcg (5,000 unit) disintegrating tablet coenzyme Q10 100 mg capsule (Co 100 mg PO DAILY 06/18/21 07/14/22 Unknown History Q-10) imiquimod 5 % topical cream packet 1 applic topical .5 night week #24 08/08/21 07/14/22 Unknown Rx (Aldara) ea cimetidine 200 mg tablet (Tagamet 200 mg PO QID #30 tabs 12/03/21 07/14/22 Unknown Rx HB) Disposable nebulizer circuit with #1 ea 12/09/21 07/14/22 Unknown Rx mask albuterol sulfate 2.5 mg/3 mL 2.5 mg (3 mL) inhalation Q4H PRN 07/14/22 07/14/22 Unknown Rx (0.083 %) solution for nebulization shortness of breath or wheezing #180 mL albuterol sulfate 90 mcg/actuation 2 puff inhalation Q6H PRN 07/14/22 07/14/22 Unknown Rx aerosol inhaler shortness of breath or wheezing #8.5 grams budesonide 0.5 mg/2 mL suspension 0.5 mg (2 mL) inhalation BID #60 mL 07/14/22 07/14/22 Unknown Rx for nebulization (Pulmicort) budesonide 160 mcg-glycopyr 9 2 inh inhalation BID #10.7 grams 07/14/22 07/14/22 Unknown Rx mcg-formot 4.8 mcg/actuation HFA inhaler (Breztri Aerosphere) chlorthalidone 50 mg tablet 50 mg PO DAILY #30 tabs 07/14/22 07/14/22 Unknown Rx clopidogrel 75 mg tablet (Plavix) 75 mg PO DAILY #30 tabs 07/14/22 07/14/22 Unknown Rx magnesium oxide 400 mg PO BID #60 tabs 07/14/22 07/14/22 Unknown Rx nifedipine 60 mg tablet,extended 60 mg PO DAILY #30 tabs 07/14/22 07/14/22 Unknown Rx release 24 hr (Procardia XL) potassium chloride 8 mEq 8 meq PO DAILY #30 caps 07/14/22 07/14/22 Unknown Rx capsule,extended release rosuvastatin 10 mg tablet (Crestor) 10 mg PO DAILY #30 tabs 07/14/22 07/14/22 Unknown Rx sertraline 50 mg tablet (Zoloft) 50 mg PO BID #60 tabs 07/14/22 07/14/22 Unknown Rx Allergies Allergy/AdvReac Type Severity Reaction Status Date / Time No Known Allergies Allergy Verified 07/14/22 09:28 Current Medications Generic Name Dose Route Start Last Admin Trade Name Jhoanq PRN Reason Stop Dose Admin Albuterol/Ipratropium 3 ml 08/31/22 02:00 08/31/22 02:36 Ipratropium-Albuterol 3 Ml Neb INHALATION 3 ml Q6H.RESP SUYAPA Administration Morphine Sulfate 2 mg 08/30/22 21:51 08/31/22 05:22 Morphine 4 Mg/Ml Sdv 1 Ml IVP 2 mg Q4H PRN Administration SEVERE PAIN Nicotine 1 patch 08/30/22 21:45 08/30/22 22:18 Nicotine 14 Mg Patch TRANSDERMA 1 patch Q24H SUYAPA Administration PFSH Acute PFSH: Medical History (Updated 08/31/22 @ 07:45 by Jerel Hercules DO) Anxiety and depression COPD (chronic obstructive pulmonary disease) Essential (primary) hypertension Left displaced femoral neck fracture Mixed hyperlipidemia Murmur Personal history of nicotine dependence Vitamin D deficiency Surgical History History of breast biopsy Left Negative at age 20's Family History Family/Other Nicotine addiction Social History Smoking and tobacco status: current every day smoker cigarettes Packs smoked per day: 0.5 Second hand smoke exposure: Yes Smoking risk assessment/counseling performed?: Yes Alcohol intake: never Desire information about alcohol rehabilitation?: No Counseling given: No Desire information about substance/drug rehabilitation?: No Counseling given: No Adopted: No Caregiver/support person: No Lives independently: Yes Household members: spouse Housing: House Marital status: Number of children: 6 service: No Current occupational status: unemployed Current occupational exposures/hazards: No Pets and animals: Yes History of recent travel: No Current gender identity: Female Vitals/I&O/Wt Last Vital Signs Temp 98.7 F 08/31/22 07:12 Pulse 91 08/31/22 07:12 Resp 16 08/31/22 07:12 BP 134/63 08/31/22 07:12 Pulse Ox 93 08/31/22 07:12 O2 Del Method 08/31/22 07:12 O2 Flow Rate 3 08/31/22 07:12 08/30/22 08/31/22 08/31/22 22:59 06:59 14:59 Intake Total 0 / 0 Balance 0 / 0 Weight last 48 hrs Weight 152 lb Physical Exam Narrative: Orthopedic examination: Patient bilateral upper extremity shoulders, elbows, wrists and hands have no tenderness to palpation. She does have dressings on her left hand at her middle and index finger. She is able to move her fingers without issues dressings clean dry and intact brisk capillary refill less than 2 seconds of the left hand. Patient has full range of motion of the bilateral upper extremity joints and no pain. No deformity noted. Examination right lower extremity demonstrates negative logroll no tenderness to palpation of the pelvis or hip on the right side. No tenderness to palpation of the knee ankle or foot. Patient is able to wiggle toes plantarflex and dorsiflex ankle. Sensation intact light touch distally. Examine of left lower extremity demonstrates left lower extremity is shortened and externally rotated. She has tenderness to palpation over the anterior aspect of the left hip. No tenderness to palpation of the pelvis. She has positive logroll unable to perform Stinchfield secondary to pain. No tenderness to palpation of the left knee. No tenderness palpation of the left ankle or foot. She can wiggle her toes plantarflex and dorsiflex ankle. Sensations intact to light touch to the SPN/DPN/tibial/saphenous/sural nerve distribution. Distal pulses are palpable. Const: COMMON NORMALS: no acute distress and alert HENMT: COMMON NORMALS: normocephalic and atraumatic HEAD & SCALP: normocephalic and atraumatic Resp: COMMON NORMALS: normal respiratory effort and No retractions Cardio: COMMON NORMALS: Peripheral pulses 2+ throughout PERIPHERAL PULSES: Peripheral pulses 2+ throughout Neuro: SENSORIUM/ORIENTATION: Yes alert Data : 08/30/22 20:05 08/31/22 04:05 Xray Ortho: My impression: X-rays of the pelvis, left hip, left femur and knee all reviewed and demonstrate a displaced left femoral neck fracture. CT scan shows no extension into the intertrochanteric line. Radiologist's impression: CT left hip: IMPRESSION: Acute subcapital fracture of the left hip, as above. A&P Assessment and plan (1) Left displaced femoral neck fracture: (2) COPD (chronic obstructive pulmonary disease): Plan - N.p.o. since midnight -Hold a.m. anticoagulation -Nonweightbearing left lower extremity -Pain control -Obtain consent -Imaging reviewed -Plan for left hip hemiarthroplasty this morning -Hospitalist as primary MDM: Heather is a pleasant 77-year-old female who sustained a ground-level fall. She is a community ambulator. She has a displaced left femoral neck fracture and orthopedic surgery team was consulted. Given her age she would be a great candidate for a left hip hemiarthroplasty for pain control and early mobilization. We will hold on her Plavix and start her on DVT prophylaxis after surgery. Patient understands the risks benefits complications and alternatives to surgical and nonsurgical treatment options. Her risks with surgery include but are not limited to make it better, make it worse, blood clot, heart attack, stroke, on the table, infection, dislocation, pulmonary issues after cementation. Understanding these risks she agrees to proceed with surgical intervention in order to help with patient's early mobilization and pain control. Patient understands and agrees with current plan. All questions answered at this time. We will proceed with surgery today. Consent was obtained. Coding Level of Care Code Acute Medication Coordinator for Noah Rothman Diagnoses Left displaced femoral neck fracture S72.002A COPD (chronic obstructive pulmonary disease) J44.9
--- NOTE | 2022-08-31 07:48 | W.PM.OPSUD ---
Surgery/Procedure H&P Update DATE OF PROCEDURE: August 31, 2022 DATE H&P PERFORMED: 08/31/22 CHANGES TO PREVIOUS DOCUMENTATION: None PREOP DIAGNOSIS: Displaced left femoral neck fracture PRIMARY INDICATION FOR PROCEDURE: displaced left femoral neck fracture PLANNED PROCEDURE: Operation Date: 08/31/22 08:00 Proposed Procedures p Hemiarthroplasty Hip(Left) - Jerel Hercules DO
[2022-08-31] MEDS: ceFAZolin 2,000 MG in sodium chloride 0.9% (plus) 50 ML 100 MG IV ×3 (08:03→23:32)
[2022-08-31] MEDS: acetaminophen 1,000 MG/100 ML PIGGYBACK 400 MG IV (08:05)
[2022-08-31] MEDS: sodium chloride 0.9% 1,000 ML 30 ML IV (08:15)
--- NOTE | 2022-08-31 08:37 | ANES.PREANE2 ---
Pre-Anesthetic Assessment Height/Weight: Height 1.68 m Weight 68.946 kg Temp Pulse Resp BP Pulse Ox O2 Del Method O2 Flow Rate 98.7 F 91 16 134/63 93 3 08/31/22 07:12 08/31/22 07:12 08/31/22 07:12 08/31/22 07:12 08/31/22 07:12 08/31/22 07:12 08/31/22 07:12 Preop Diagnosis: Displaced left femoral neck fracture Operation Date: 08/31/22 08:00 Proposed Procedures p Hemiarthroplasty Hip(Left) - Jerel Delisa, Familial anesthetic complications: none Was Beta Rosemarie taken within 24 hours: N/A Was Clonidine taken within 24 hours: N/A Last intake: Intake Last Liquid Date 08/30/22 Last Liquid Time 23:00 Last Solid Date 08/30/22 Last Solid Time 09:00 Social Tobacco and No alcohol Exam alert, oriented x 3 and regular rate & rhythm rhonchi Airway Submandibular: within normal limits Cervical ROM: within normal limits Mallampati: Class II Dentition: false Pulmonary Chronic Obstructive Pulmonary Disease CV/HEM Hypertension, Murmur and Peripheral Vascular Disease Metabolic Hyperlipidemia Neuropsych Anxiety and Depression Anesthetic Plan ASA status: 3 Anesthesia: General (unknown when Plavix last taken) Medications/Allergies Home Medications Medication Instructions Recorded Confirmed Last Taken Type cholecalciferol (vitamin D3) 125 5,000 unit PO BID 12/06/19 07/14/22 Unknown History mcg (5,000 unit) disintegrating tablet coenzyme Q10 100 mg capsule (Co 100 mg PO DAILY 06/18/21 07/14/22 Unknown History Q-10) imiquimod 5 % topical cream packet 1 applic topical .5 night week #24 08/08/21 07/14/22 Unknown Rx (Aldara) ea cimetidine 200 mg tablet (Tagamet 200 mg PO QID #30 tabs 12/03/21 07/14/22 Unknown Rx HB) Disposable nebulizer circuit with #1 ea 12/09/21 07/14/22 Unknown Rx mask albuterol sulfate 2.5 mg/3 mL 2.5 mg (3 mL) inhalation Q4H PRN 07/14/22 07/14/22 Unknown Rx (0.083 %) solution for nebulization shortness of breath or wheezing #180 mL albuterol sulfate 90 mcg/actuation 2 puff inhalation Q6H PRN 07/14/22 07/14/22 Unknown Rx aerosol inhaler shortness of breath or wheezing #8.5 grams budesonide 0.5 mg/2 mL suspension 0.5 mg (2 mL) inhalation BID #60 mL 07/14/22 07/14/22 Unknown Rx for nebulization (Pulmicort) budesonide 160 mcg-glycopyr 9 2 inh inhalation BID #10.7 grams 07/14/22 07/14/22 Unknown Rx mcg-formot 4.8 mcg/actuation HFA inhaler (Breztri Aerosphere) chlorthalidone 50 mg tablet 50 mg PO DAILY #30 tabs 07/14/22 07/14/22 Unknown Rx clopidogrel 75 mg tablet (Plavix) 75 mg PO DAILY #30 tabs 07/14/22 07/14/22 Unknown Rx magnesium oxide 400 mg PO BID #60 tabs 07/14/22 07/14/22 Unknown Rx nifedipine 60 mg tablet,extended 60 mg PO DAILY #30 tabs 07/14/22 07/14/22 Unknown Rx release 24 hr (Procardia XL) potassium chloride 8 mEq 8 meq PO DAILY #30 caps 07/14/22 07/14/22 Unknown Rx capsule,extended release rosuvastatin 10 mg tablet (Crestor) 10 mg PO DAILY #30 tabs 07/14/22 07/14/22 Unknown Rx sertraline 50 mg tablet (Zoloft) 50 mg PO BID #60 tabs 07/14/22 07/14/22 Unknown Rx Allergies Allergy/AdvReac Type Severity Reaction Status Date / Time No Known Allergies Allergy Verified 07/14/22 09:28 Current Medications Generic Name Dose Route Start Last Admin Trade Name Freq PRN Reason Stop Dose Admin Albuterol/Ipratropium 3 ml 08/31/22 02:00 08/31/22 02:36 Ipratropium-Albuterol 3 Ml Neb INHALATION 3 ml Q6H.RESP SUYAPA Administration Morphine Sulfate 2 mg 08/30/22 21:51 08/31/22 05:22 Morphine 4 Mg/Ml Sdv 1 Ml IVP 2 mg Q4H PRN Administration SEVERE PAIN Nicotine 1 patch 08/30/22 21:45 08/30/22 22:18 Nicotine 14 Mg Patch TRANSDERMA 1 patch Q24H SUYAPA Administration PFSH Anesthesia Medical History (Updated 08/31/22 @ 07:45 by Jerel Hercules DO) Anxiety and depression COPD (chronic obstructive pulmonary disease) Essential (primary) hypertension Left displaced femoral neck fracture Mixed hyperlipidemia Murmur Personal history of nicotine dependence Vitamin D deficiency Surgical History History of breast biopsy Left Negative at age 20's Family History Family/Other Nicotine addiction Social History Smoking and tobacco status: current every day smoker cigarettes Packs smoked per day: 0.5 Second hand smoke exposure: Yes Smoking risk assessment/counseling performed?: Yes Alcohol intake: never Desire information about alcohol rehabilitation?: No Counseling given: No Desire information about substance/drug rehabilitation?: No Counseling given: No Adopted: No Caregiver/support person: No Lives independently: Yes Household members: spouse Housing: House Marital status: Number of children: 6 service: No Current occupational status: unemployed Current occupational exposures/hazards: No Pets and animals: Yes History of recent travel: No Current gender identity: Female Data Anesthesia : 08/30/22 20:05 08/31/22 04:05 Short CBC 08/30/22 Range/Units 20:05 WBC 17.0 H (4.0-10.0) 10^3/uL Hgb 15.2 (11.5-15.3) g/dL Hct 45.5 (37.0-47.0) % MCV 89.0 (81-99) fl Plt Count 216 (130-400) 10^3/cmm Neut % (Auto) 88.1 % Neut # (Auto) 14.93 H (1.8-7.7) 10^3/uL BMP 08/30/22 08/31/22 20:05 04:05 Sodium 128 L 133 L Potassium 2.9 L 3.4 L Chloride 87 L 92 L Carbon Dioxide 29 30 H BUN 16 16 Creatinine 0.7 0.7 Glucose 125 H 112 Calcium 9.9 9.4 Liver Function 08/30/22 08/31/22 Range/Units 20:05 04:05 Total Bilirubin 0.5 0.7 (0.15-1.2) mg/dL AST 21 18 (0-32) U/L ALT 8 6 (0-33) U/L Alkaline Phosphatase 76 66 (35-105) U/L Albumin 4.3 4.0 (3.5-5.2) g/dL Urine 08/30/22 Range/Units 19:35 Urine Color Dark yellow (Yellow) Urine Appearance Cloudy A (CLEAR) Urine pH 7 (5-7) Ur Specific [place] 1.005 (1.005-1.030) Urine Protein 1+ H (Negative) Urine Glucose (UA) Norm (Normal) Urine Ketones 1+ H (Negative) Urine Nitrate Negative (Negative) Urine Bilirubin 1+ H (Negative) Ur Leukocyte Esterase 1+ H (Negative) Urine RBC 5-10 H (0-2) /hpf Urine WBC 5-10 H (0-5) /hpf Blood Bank 08/31/22 04:05 Blood Type AB Positive Rho(D) Type Positive Antibody Screen Negative Coags 08/30/22 08/30/22 20:05 21:08 PT Cancelled 12.50 INR Cancelled 0.90 APTT Cancelled 28.5 Cardiac Studies: Echocardiogram Ultrasound 05/16/21
--- NOTE | 2022-08-31 10:08 | XRR_ITS ---
PROCEDURE INFORMATION: Exam: XR Left Hip Exam date and time: 08/31/2022 10:26 AM Age: 77 years old Clinical indication: Device placement; Prior surgery; Surgery date: Post-operative (0-2 days); Surgery type: Hip; Additional info: Pacu postop hip adeel, ap pelvis, cross table lateral left hip and ap left hip TECHNIQUE: Imaging protocol: Radiologic exam of the Left hip. Views: 2 or 3 views hip with pelvis when performed. COMPARISON: CT hip LT wo con* [id number] 08/30/2022 8:27 PM FINDINGS: Bones/joints: Left total hip arthroplasty demonstrates normal alignment. No proximal femoral fracture identified. Surgical kiarra along the lateral margin of the left hip. Soft tissues: Expected postsurgical subcutaneous emphysema. Intraperitoneal space: The pelvis is grossly intact on this single AP view. XR/XR hip LT 2-3V wo/w pel* [id number] IMPRESSION: Normal appearing left total hip arthroplasty.
--- NOTE | 2022-08-31 10:13 | P.OP_ITS ---
Brief Operative Note Date of procedure: 08/31/22 Pre-op diagnosis: Displaced left femoral neck fracture Post-op diagnosis: same Procedure Done: Left hip hemiarthroplasty Surgeon: Jerel Hercules Estimated blood loss (mL): 250 Complications: None Post-op Plan: Patient recover in PACU and returned to the floor. Posterior hip precautions. Weightbearing as tolerated to the left lower extremity. Hip abduction pillow on in place while in bed. Change dressing as needed leave Silverlon dressing on in place unless saturated. Will return to the floor receive appropriate discharge instructions as well as pain control and DVT prophylaxis. Will receive postoperative antibiotics for infection prophylaxis. Patient work with PT/OT. Hospitalist is primary. Condition: stable Disposition: floor Coding Level of Care Code Acute Plasterer Foreman for Noah Rothman
--- NOTE | 2022-08-31 10:15 | PM.OP ---
Operative Report Date of procedure: August 31, 2022 Pre-op diagnosis: Preop Diagnosis Displaced left femoral neck fracture Post-op diagnosis: Same Procedure done: Left hip hemiarthroplasty Implants: Beaver Accolade C1 132 degree cemented hip stem size 3 Polo bipolar head component 48 mm outer diameter 28 mm inner diameter with a +4 mm offset Surgeon: Jerel Hercules DO Estimated blood loss: 250 mL None IV fluids: See anesthesia record Complications: None Findings: See operative report narrative Condition: stable Disposition: floor Brief History: Heather is a 77-year-old female who had sustained a ground-level fall and fracturing the left femoral neck. She is brought to the emergency department found to have a displaced left femoral neck fracture. She was admitted by the hospitalist team medically optimized and cleared for surgery per the hospitalist and anesthesia department. Orthopedic surgery team was consulted for evaluation and recommendations. Given her age would recommend a left hip hemiarthroplasty given this is displaced. Recommended surgical intervention as this will provide early mobilization as well as pain control. She understands the risk benefits complications alternatives to surgical and nonsurgical treatment options and agrees to proceed with surgical intervention. Consent was obtained. All questions answered. Procedure: Patient was seen evaluated in the preoperative holding area. Consent was signed with patient. The correct extremity was then marked. Patient seen and evaluated by the anesthesia department and once cleared for surgery was taken back to the operative suite. She was placed in supine position underwent anesthesia per the anesthesia department. She then was positioned in a lateral decubitus position on a pegboard with the left hip up. Patient was appropriately secured to the bed and all bony prominences were well-padded. Patient's left lower extremity was then prepped and draped in standard orthopedic fashion. A final timeout was performed. Patient received appropriate preoperative antibiotics. A standard posterior approach to the left hip was performed. Sharp scalpel excision through skin and subcutaneous tissue directly down to the fascia. The fascia was split longitudinally and Charnley retractors were applied. I then excised the trochanteric bursa and a Hohmann was placed underneath the abductors. Next had my certified surgical assistant placed the leg on tension with internal rotation stretching out the capsule. I then performed a 1 thick sleeve starting proximal to distal and release the short external rotators and capsule in 1 thick sleeve for later repair. Sciatic nerve was identified and protected throughout the case. The hip was then dislocated. I then placed a Hohmann above and below the lesser to verify the neck length. I then made a nikki to freshen the neck cut as the patient did have a subcapital femoral neck fracture. Neck cut was made roughly 15 mm/fingerbreadth above the lesser. The inferior and superior neck was then protected with Hohmann's and oscillating saw was used to freshen the neck cut. This was then removed and a corkscrew was placed in the femoral head and the femoral head was removed and sized to be a 48 mm. I then placed a Hohmann on the anterior wall of the acetabulum to evaluate the acetabular socket. All clear of bony debris. I then did excise the remanent of the pulmonary. Socket was then thoroughly irrigated. I then trialed with a 48 mm and had good excellent suction fit. Next I placed a femoral elevator and begin my femoral preparation. Small rongeur was used to clear the soft tissue of the superior lateral aspect of the femoral neck. I then utilized a box osteotome. A canal finder and then a lateralizing rasp and lateralizing reamer to appropriately lateralized my stamina. Next I marked my appropriate anteversion parallel with the posterior cortex roughly 10-15degrees of anteversion. I then this started with a 2 stem and broached up to a size 3. The size 4 was excessively large and as a result elected for a size 3 femoral stem. I placed this to appropriate depth resting on the calcar. I then performed a reduction just to verify that this would not be too tight prior to cementation. The standard had a little bit of shock and as result this was an appropriate size stem and plan for cementation. Next the stems were removed the size 3 femoral stem was then opened. On the back table. I then appropriately measured the depth for cement mantle for my cement restrictor. Next the canal was then thoroughly brushed and cleared of all debris. I then measured and placed my cement restrictor distally. The cement was then mixed on the back table I then thoroughly irrigated the canal and dried this completely with a tampon. Once the cement was ready for cement placement I then utilized the cement gun and filled the entire canal and then subsequently pressurized. Prior to cementation anesthesia was informed of cementing technique and pressurization and patient was optimized from her O2 saturations and had no issues throughout the cementation process. Next I pressurized the cement and subsequently placed my stem and held this while removing the excessive cement extruded from the implant pelvis and appropriate anteversion until the cement was completely cured. Once cement was cured I thoroughly irrigated the incision. Again recheck the acetabulum to make sure free of any debris or small bony fragments or cement. Once this was clear I then trialed a +4 mm offset trial implant on my final stem. This was then subsequently reduced atraumatically. The patient leg lengths were appropriate and patient had excellent stability with no dislocation at extreme flexion and internal rotation and had appropriate shuck. This appeared to be the appropriate offset for patient for stability and leg lengths. This was then dislocated and the final 48 mm outer diameter 28 mm inner diameter with a +4 mm femoral head offset was then opened and the final was impacted with excellent fixation. The hip was then reduced and again confirmed being stable. The incision bed was then thoroughly irrigated. Once again identified the sciatic nerve which was intact and unharmed. This point time I then performed my capsular and short external repair through bone tunnels and Ethibond suture. This had excellent capsular repair. I sequentially then closed the incision in layered fashion starting with the fascia with a running strata fix suture as well as the deep subcutaneous tissue and subcutaneous tissue with a running strata fix suture. The skin edges were then approximated with kiarra dressing was then placed of Silverlon dressing. Patient was then placed into an abduction pillow. She was then awakened from anesthesia and taken to PACU in stable condition. Disposition: Patient taken to PACU in stable condition. Will be given appropriate pain medication DVT prophylaxis and postoperative antibiotics. Will be weightbearing as tolerated to left lower extremity. Patient to have posterior hip precautions. We will work with PT/OT. director of professional services for discharge planning hospitalist is primary. Patient follow-up with Dr. Hercules in office in 2 weeks.
--- NOTE | 2022-08-31 10:36 | P.PCN_ITS ---
PACU note Narrative: Patient recovering well in PACU. Patient still sleepy from anesthesia and unable to arouse to follow commands. Distal pulses are palpable. Leg lengths appropriate. Abduction pillow on and in place. Postoperative x- rays taken showing stable left hip hemiarthroplasty. Exam: unarousable (Still sedated from anesthesia and unable to follow commands) Disposition: back to floor
--- NOTE | 2022-08-31 11:08 | ANES.PROC ---
Anesthesia Procedures Procedure/Date: 08/31/22 Nerve Block ^: Nerve Block 1: Main Anesthesia: general anesthesia Time Out Performed: Yes Consent: requested by attending/covering physician, from patient, risks and benefits reviewed and patient agrees to proceed Nerve block location: other (left fascia-iliaca) Anesthesia monitors applied: pulse oximetry, EKG, BP cuff and oxygen Nerve block position: supine Anesthetic Used: bupivacaine 0.25% Amount of anesthesia used (mL): 30 Nerve Stimulator Used?: No Interscalene/Femoral BLK: other needle (18g Tuohy) Injection: neg aspiration of heme Patient Tolerated Procedure: well Complications: none
--- NOTE | 2022-08-31 11:10 | ANE.PACU2 ---
Inpatient post-anesthesia follow up: Airway intact: Yes Vital signs: Temperature 97.7 F Pulse Rate 78 Respiratory Rate 14 Blood Pressure 152/67 Pulse Oximetry 100 Oxygen Delivery Me thod Simple Mask Oxygen Flow Rate 6 Fraction of Inspir ed Oxygen Hydration adequate: Yes Nausea and vomiting: No Pain level: 2 Mental status: Baseline
[2022-08-31] MEDS: sertraline 50 mg Tablet PO ×2 (12:03→18:22)
[2022-08-31] MEDS: atorvastatin 40 mg Tablet PO (12:04)
[2022-08-31] MEDS: lidocaine 1% 5 ML in potassium chloride premix 100 ML 25 ML IV (12:05)
--- NOTE | 2022-08-31 12:34 | P.PN_ITS ---
Subjective Subjective: Patient was seen and examined this morning, scheduled for Left hip hemiarthroplasty. Medications: Medication Review Details: Generic Name Dose Route Start Last Admin Trade Name Freq PRN Reason Stop Dose Admin Albuterol/Ipratrop ium 3 ml 08/31/22 02:00 08/31/22 02:36 Ipratropium-Albu terol 3 Ml Neb INHALATION 3 ml Q6H.RESP SUYAPA Administration Atorvastatin Calci um 40 mg 08/31/22 10:00 08/31/22 12:04 Atorvastatin 40 Mg Tablet PO 40 mg DAILY SUYAPA Administration Lidocaine HCl 5 ml / Potassium 105 mls @ 25 mls/ hr 08/31/22 11:30 08/31/22 12:05 Chloride IV 08/31/22 15:41 25 mls/hr ONCE ONE Administration Morphine Sulfate 2 mg 08/30/22 21:51 08/31/22 05:22 Morphine 4 Mg/Ml Sdv 1 Ml IVP 2 mg Q4H PRN Administration SEVERE PAIN Nicotine 1 patch 08/30/22 21:45 08/30/22 22:18 Nicotine 14 Mg P atch TRANSDERMA 1 patch Q24H SUYAPA Administration Sertraline HCl 50 mg 08/31/22 09:00 08/31/22 12:03 Sertraline 50 Mg Tablet PO 50 mg BID SUYAPA Administration Vitals/I&O/Wt Last Vital Signs Temp 97.7 F 08/31/22 11:14 Pulse 82 08/31/22 11:14 Resp 16 08/31/22 11:14 BP 144/58 08/31/22 11:14 Pulse Ox 91 08/31/22 11:14 O2 Del Method 08/31/22 11:14 O2 Flow Rate 3 08/31/22 11:14 08/30/22 08/31/22 08/31/22 22:59 06:59 14:59 Intake Total 0 / 0 1010 / 1010 Output Total 850 / 850 Balance 0 / 0 160 / 160 Weight last 48 hrs Weight 68.946 kg Physical Exam Resp: COMMON NORMALS: clear to auscultation bilaterally AUSCULTATION: clear to auscultation bilaterally Cardio: COMMON NORMALS: regular rate, regular rhythm, S1 normal heart sound present, S2 normal heart sound present, No gallops present (Cardio), No murmurs present (Cardio), No rub (Cardio) and Peripheral pulses 2+ throughout RATE: regular rate RHYTHM: regular rhythm HEART SOUNDS: S1 normal heart sound present and S2 normal heart sound present PERIPHERAL PULSES: Peripheral pulses 2+ throughout GI: COMMON NORMALS: Normal to inspection, nondistended, normoactive bowel sounds present, Soft to palpation, non-tender, No hepatosplenomegaly present and no masses AUSCULTATION: Yes normoactive bowel sounds PALPATION: Yes Soft to palpation and Yes No hepatosplenomegaly present RECTAL EXAM: deferred Extremity: COMMON NORMALS: no clubbing, cyanosis or edema and no pedal edema Urinary Catheter Management: Awad: Cath Placed During This Visit: yes Urinary Catheter Date of Insertion: 08/31/22 Urinary Catheter Time of Insertion: 09:55 Data : 08/30/22 20:05 08/31/22 04:05 A&P Assessment and plan (1) Closed left hip fracture: Sustained left hip fracture after mechanical fall after stubbing her toe, also sustained left index finger laceration. Possible contribution from hyponatremia. She does have underlying COPD, smoking history. Reports sees Dr. Quinonez in office, looks like with HTN, HLD, also history of mild carotid stenosis. She is on Plavix. Monitor for anemia, discussed with her and her . She is interested in seeking surgical repair. Discussed with her risk would be somewhat above average, slightly high risk of serious complication 1.7%, 1.9%, slightly high risk of pneumonia, cardiac complication. Elevated risk of DC to SNF 6.2%. She does have an elevated risk of postoperative delirium, 4.3%, new ability 8 use risk 10.3%. She otherwise does not appear to be in COPD exacerbation, and other conditions appear at baseline. We discussed with her and her consideration of timing of surgery, but no additional optimization currently would be beneficial to delay surgery. (2) Hypokalemia: Replaced. Check magnesium. Follow-up potassium level. (3) Hyponatremia: Secondary to thiazide. Hold chlorthalidone. Regular diet. Recheck sodium. (4) Abnormal urinalysis: Abnormal urinalysis 5-10 RBC, 5-10 WBC, but also 10-15 squamous epithelial cells. She denies any urinary symptoms. We will repeat to confirm clearance. Please confirm clearance of microscopic hematuria as well, otherwise with smoking history may need additional follow-up. Plan Smoking addiction: We discussed with her for 3 and half minutes smoking cessation. She smokes probably about half pack a day. She understands would benefit from quitting smoking. She is agreeable with nicotine replacement while she is here in hospital, patch, lozenges as needed. HTN HLD Carotid artery disease Attestations Medical Necessity Statement*: Patient needs to be in hospital for the management of lt hip fracture. Coding Level of Care Code Acute Classification Case Manager for Tereseg Fwd Exam Expanded Problem Focused Diagnoses Closed left hip fracture S72.002A Hypokalemia E87.6 Hyponatremia E87.1 Abnormal urinalysis R82.90
--- NOTE | 2022-08-31 12:44 | PC.NURSE ---
nurse was notified about low BP
[2022-08-31] MEDS: chlorhexidine gluconate 0.12% Btl 473 mL 30 ML MUCOUS MEM ×3 (13:15→20:25)
[2022-08-31] MEDS: calcium carb-vit d 600mg/400unit 1 Tablet 1 EACH PO (18:22)
[2022-08-31] MEDS: iron polysaccharide complex 150 mg Capsule PO (18:22)
[2022-08-31] MEDS: sennosides-docusate Tablet 2 TAB PO (18:22)
[2022-08-31] MEDS: mupirocin oint 22 gm 1 APPLIC NASAL (18:22)
[2022-08-31] MEDS: nicotine 14 mg Patch 1 PATCH TRANSDERMA (20:53)
[2022-08-31] MEDS: enoxaparin 30 mg/0.3 mL Syringe SUBCUT (22:09)
[2022-09-01] VITALS (12 sets, daily range): BP systolic 118–123; BP diastolic 58–68; PULSE 82–94; RESP 16–20; TEMP 36.7–37.7; O2SAT 88–95
[2022-09-01] MEDS: ipratropium-albuterol 3 mL Neb INHALATION ×4 (02:51→20:06)
[2022-09-01 04:38] LABS: Basophils % 0.1 %; Hematocrit 36.9 % (37.0-47.0); Lymphocytes # 0.9 10^3/uL (0.8-4.8); Lymphocytes % 10.3 %; Mean Corpuscular HGB Conc 32.5 g/dL (30.0-36.0); Mean Corpuscular Hemoglobin 30.2 pg (28.0-34.0); Mean Corpuscular Volume 92.9 fl (81-99); Mean Platelet Volume 10.4 fL (7.4-10.4); Monocytes # 0.7 10^3/uL (0.2-0.9); Monocytes % 7.7 %; Neutrophils % 81.5 %; Nucleated Red Blood Cells % 0 %; Platelet Count 165 10^3/cmm (130-400); Red Blood Count 3.97 10^6/uL (4.1-5.3); Red Cell Distribution Width 12.6 % (12.1-15.1); White Blood Count 8.5 10^3/uL (4.0-10.0)
[2022-09-01 05:06] LABS: Alanine Aminotransferase < 5 U/L (0-33); Albumin Level 3.3 g/dL (3.5-5.2); Alkaline Phosphatase 57 U/L (35-105); Anion Gap 12.3 (5-19); Aspartate Amino Transferase 19 U/L (0-32); Blood Urea Nitrogen 15 mg/dL (8-23); Calcium 9.1 mg/dL (8.5-10.5); Carbon Dioxide 27 mmol/L (22-29); Chloride 92 mmol/L (98-107); Globulin 2.5 g/dL (1.3-4.6); Glucose 103 mg/dL (65-115); Osmolality Calculated 267 mOsm/kg (285-295); Potassium 3.3 mmol/L (3.5-5.1); Sodium 128 mmol/L (136-145); Total Bilirubin 0.5 mg/dL (0.15-1.2); Total Protein 5.8 g/dL (6.6-8.7)
[2022-09-01] MEDS: oxyCODONE 5 mg IR Tab/Cap PO ×3 (06:27→17:27)
[2022-09-01] MEDS: budesonide 0.5 mg/2 mL Neb 0.25 MG INHALATION (08:31)
[2022-09-01] MEDS: potassium chloride ER 20 mEq Tablet 40 MEQ PO (08:45)
[2022-09-01] MEDS: ceFAZolin 2,000 MG in sodium chloride 0.9% (plus) 50 ML 100 MG IV (08:46)
[2022-09-01] MEDS: sennosides-docusate Tablet 2 TAB PO ×2 (08:47→17:27)
[2022-09-01] MEDS: cholecalciferol (vitamin D3) 1,000 unit Tablet 1000 UNIT PO (08:47)
[2022-09-01] MEDS: iron polysaccharide complex 150 mg Capsule PO ×2 (08:47→17:27)
[2022-09-01] MEDS: sertraline 50 mg Tablet PO ×2 (08:47→17:27)
[2022-09-01] MEDS: multivitamin therapeutic Tablet 1 TAB PO (08:47)
[2022-09-01] MEDS: atorvastatin 40 mg Tablet PO (08:47)
[2022-09-01] MEDS: calcium carb-vit d 600mg/400unit 1 Tablet 1 EACH PO ×2 (08:47→17:27)
[2022-09-01] MEDS: mupirocin oint 22 gm 1 APPLIC NASAL ×2 (08:47→17:27)
[2022-09-01] MEDS: chlorhexidine gluconate 0.12% Btl 473 mL 30 ML MUCOUS MEM (08:48)
--- NOTE | 2022-09-01 10:09 | PM.PN ---
Subjective Subjective: Patient was seen this morning, sitting up in bed, enjoying breakfast, she tells her that she has not worked with physical therapy yet, the plan is for her to go home, as she has and many sons to take care of her she has no pain complaints Vitals/I&O/Wt Last Vital Signs Temp 99.8 F H 09/01/22 07:49 Pulse 92 09/01/22 08:34 Resp 18 09/01/22 08:34 BP 123/61 09/01/22 07:49 Pulse Ox 94 09/01/22 08:34 O2 Del Method 09/01/22 08:34 O2 Flow Rate 3 09/01/22 08:34 08/31/22 09/01/22 09/01/22 22:59 06:59 14:59 Intake Total 745 / 1875 460 / 460 Output Total 700 / 1550 Balance 745 / 1025 -700 / 325 460 / 460 Weight last 48 hrs Weight 68.946 kg Physical Exam Const: COMMON NORMALS: no acute distress and patient oriented x3 Resp: COMMON NORMALS: normal respiratory effort, No retractions, No use of accessory muscles and clear to auscultation bilaterally AUSCULTATION: clear to auscultation bilaterally Cardio: COMMON NORMALS: regular rate, regular rhythm, S1 normal heart sound present and S2 normal heart sound present RATE: regular rate RHYTHM: regular rhythm HEART SOUNDS: S1 normal heart sound present and S2 normal heart sound present GI: COMMON NORMALS: Normal to inspection, nondistended, normoactive bowel sounds present, non-tender and no masses Extremity: COMMON NORMALS: no pedal edema Neuro: COMMON NORMALS: patient oriented x3 Psych: COMMON NORMALS: mental status grossly normal Urinary Catheter Management: Awad: Cath Placed During This Visit: yes Reason for Continuing Indwelling Catheter: Required Immobilization for Trauma or Surgery or Anesthesia Urinary Catheter Date of Insertion: 08/31/22 Urinary Catheter Time of Insertion: 09:55 Data : 09/01/22 03:52 09/01/22 03:52 A&P Assessment and plan (1) Closed left hip fracture: Sustained left hip fracture after mechanical fall after stubbing her toe, also sustained left index finger laceration. Possible contribution from hyponatremia. She does have underlying COPD, smoking history. Reports sees Dr. Quinonez in office, looks like with HTN, HLD, also history of mild carotid stenosis. She is on Plavix. Monitor for anemia, discussed with her and her . Status post left hip hemiarthroplasty by Dr. Hercules Pain control and anticoagulation as per orthopedic team (2) Hypokalemia: Replaced. Check magnesium. Follow-up potassium level. (3) Hyponatremia: Secondary to thiazide. Hold chlorthalidone. Regular diet. Recheck sodium. (4) Abnormal urinalysis: Abnormal urinalysis 5-10 RBC, 5-10 WBC, but also 10-15 squamous epithelial cells. She denies any urinary symptoms. We will repeat to confirm clearance. Please confirm clearance of microscopic hematuria as well, otherwise with smoking history may need additional follow-up. Repeat UA ordered, urine culture start Rocephin for possible UTI Plan Smoking addiction: We discussed with her for 3 and half minutes smoking cessation. She smokes probably about half pack a day. She understands would benefit from quitting smoking. She is agreeable with nicotine replacement while she is here in hospital, patch, lozenges as needed. 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
[2022-09-01] MEDS: cefTRIAXone 1,000 MG in sodium chloride 0.9% (plus) 50 ML 100 MG IV (11:09)
[2022-09-01 11:28] LABS: Add Urine Microscopic? YES; Bilirubin Urine Neg (Negative); Blood Urine 2+ (Negative); Glucose Urine UA Norm (Normal); Ketones Urine Negative (Negative); Leukocyte Esterase Urine Negative (Negative); Nitrate Urine Negative (Negative); Protein Urine Neg (Negative); Specific Gravity, Urine 1.015 (1.005-1.030); Urine Appearance Clear (CLEAR); Urine Color Yellow (Yellow); Urobilinogen Urine Norm (Negative); pH Urine 6 (5-7)
[2022-09-01 11:36] LABS: Add Urine Culture? No; Bacteria Urine TRACE /hpf; RBC Urine 0-4 /hpf (0-2)
[2022-09-01] MEDS: morphine 4 mg/mL SDV 1 mL 2 MG IVP (13:15)
--- NOTE | 2022-09-01 14:00 | PM.PN ---
Subjective Subjective: Patient seen and examined this early afternoon. She is doing well. No issues overnight. Patient's begun ambulating. She states her pain is controlled with medications. No other issues at this time she is eating lunch. We will continue to work with PT/OT. Vitals/I&O/Wt Last Vital Signs Temp 99.3 F 09/01/22 12:00 Pulse 94 09/01/22 12:00 Resp 18 09/01/22 13:15 BP 120/65 09/01/22 12:00 Pulse Ox 90 09/01/22 12:00 O2 Del Method 09/01/22 12:00 O2 Flow Rate 3 09/01/22 12:00 08/31/22 09/01/22 09/01/22 22:59 06:59 14:59 Intake Total 745 / 1875 990 / 990 Output Total 700 / 1550 Balance 745 / 1025 -700 / 325 990 / 990 Weight last 48 hrs Weight 152 lb Physical Exam Narrative: Left lower extremity: No pain with logroll. Patient still has mild incisional tenderness to palpation of the left hip. Patient is able to wiggle toes plantarflex and dorsiflex ankle. Dressing has some saturation otherwise clean dry and intact. Patient still has ecchymosis and swelling normal postoperatively around incision. Sensation tact light touch distally at SPN/DPN/tibial/saphenous/sural nerve distribution, distal pulses palpable. Urinary Catheter Management: Awad: Cath Placed During This Visit: yes, but has since been removed by the nurse Reason for Continuing Indwelling Catheter: Decision to DC Catheter Urinary Catheter Date of Insertion: 08/31/22 Urinary Catheter Time of Insertion: 09:55 Date Urinary Catheter Removed: 09/01/22 Time Urinary Catheter Discontinued: 12:18 Data : 09/01/22 03:52 09/01/22 03:52 A&P Assessment and plan (1) Left displaced femoral neck fracture: Plan Weightbearing as tolerated left lower extremity Posterior hip precautions Ice as needed Dressing changes as needed if becomes saturated PT/OT Internal medicine is primary and appreciate their medical management instructional support services director for discharge planning A.m. labs reviewed hemoglobin stable at 12 Patient recovering well postoperatively postop day one of the left hip hemiarthroplasty. PACU x-rays show stable prosthesis with cement mantle. This point time recommend PT/OT she was seen by therapy as well as medical social consultant to help patient and family with discharge plan. Orthopedics will continue to follow patient tomorrow and if she is doing well at that time we will sign off patient follow peripherally. Plan will be to follow-up with me in 2 weeks. Patient and family understand agree with current plan. All questions answered. Attestations Medical Necessity Statement*: Patient sustained displaced left femoral neck fracture current surgical intervention and postoperative monitoring and therapy. Coding Level of Care Code Acute Midlevel Provider for Noah Rothman Diagnoses Left displaced femoral neck fracture S72.002A Time Spent (min) 20
[2022-09-01] MEDS: enoxaparin 30 mg/0.3 mL Syringe SUBCUT (21:26)
[2022-09-01] MEDS: nicotine 14 mg Patch 1 PATCH TRANSDERMA (21:27)
[2022-09-02] VITALS (7 sets, daily range): BP systolic 118–120; BP diastolic 56–62; PULSE 80–92; RESP 17–19; TEMP 36.7; O2SAT 88–96
[2022-09-02] MEDS: ipratropium-albuterol 3 mL Neb INHALATION ×2 (02:48→08:16)
--- NOTE | 2022-09-02 03:11 | PC.NURSE ---
Patient assisted up to bathroom. Patient tolerated well.
[2022-09-02 03:36] LABS: Basophils % 0.3 %; Eosinophils % 0.1 %; Hematocrit 39.6 % (37.0-47.0); Hemoglobin 11.8 g/dL (11.5-15.3); Lymphocytes % 13.4 %; Mean Corpuscular HGB Conc 29.8 g/dL (30.0-36.0); Mean Corpuscular Hemoglobin 30.3 pg (28.0-34.0); Mean Platelet Volume 9.9 fL (7.4-10.4); Monocytes # 0.6 10^3/uL (0.2-0.9); Monocytes % 7.7 %; Neutrophils # 5.87 10^3/uL (1.8-7.7); Neutrophils % 78.2 %; Nucleated Red Blood Cells % 0 %; Platelet Count 157 10^3/cmm (130-400); White Blood Count 7.5 10^3/uL (4.0-10.0)
[2022-09-02 03:49] LABS: Mean Corpuscular Volume 101.5 fl (81-99)
[2022-09-02 04:02] LABS: Alanine Aminotransferase < 5 U/L (0-33); Albumin Level 3.6 g/dL (3.5-5.2); Alkaline Phosphatase 58 U/L (35-105); Anion Gap 13.6 (5-19); Aspartate Amino Transferase 24 U/L (0-32); Blood Urea Nitrogen 15 mg/dL (8-23); Calcium 9.8 mg/dL (8.5-10.5); Carbon Dioxide 29 mmol/L (22-29); Chloride 93 mmol/L (98-107); Globulin 2.5 g/dL (1.3-4.6); Glucose 121 mg/dL (65-115); Osmolality Calculated 276 mOsm/kg (285-295); Potassium 3.6 mmol/L (3.5-5.1); Sodium 132 mmol/L (136-145); Total Bilirubin 0.7 mg/dL (0.15-1.2); Total Protein 6.1 g/dL (6.6-8.7)
--- NOTE | 2022-09-02 06:48 | P.PN_ITS ---
Subjective Subjective: Patient seen and examined this morning. Patient doing well she has been up and working with therapy. She is ambulated about her room. Her pain is controlled with medications. Dressing change this morning incisions clean dry and intact. She had mild bloody saturation normal postoperative ecchy mosis noted. Stable for discharge from orthopedic standpoint. Vitals/I&O/Wt Last Vital Signs Temp 98.3 F 09/01/22 20:00 Pulse 91 09/02/22 02:58 Resp 18 09/02/22 02:00 BP 119/68 09/01/22 20:00 Pulse Ox 89 L 09/02/22 02:00 O2 Del Method 09/02/22 02:00 O2 Flow Rate 4 09/02/22 02:00 09/01/22 09/01/22 09/02/22 14:59 22:59 06:59 Intake Total 990 / 990 800 / 1790 Output Total 0 / 0 Balance 990 / 990 800 / 1790 Physical Exam Narrative: Dressing to the left hip inspected moderate saturation noted as a result Silverlon dressing taken down and incision well approximated with kiarra in place. She does have some ecchymosis noted which was preoperatively around the greater trochanteric region. No expressible purulence or fluctuance noted about the incision. No signs of infection. New dressing applied. Leg lengths appropriate. She is able to wiggle toes plantarflex and dorsiflex ankle. Distal pulses palpable. Negative logroll pain. Urinary Catheter Management: Awad: Cath Placed During This Visit: yes, but has since been removed by the nurse Reason for Continuing Indwelling Catheter: Decision to DC Catheter Urinary Catheter Date of Insertion: 08/31/22 Urinary Catheter Time of Insertion: 09:55 Date Urinary Catheter Removed: 09/01/22 Time Urinary Catheter Discontinued: 12:18 Data : 09/02/22 02:54 09/02/22 02:54 A&P Assessment and plan (1) Left displaced femoral neck fracture: Plan Weightbearing as tolerated left lower extremity Posterior hip precautions Ice as needed Dressing changes as needed if becomes saturated PT/OT Internal medicine is primary and appreciate their medical management resident services coordinator for discharge planning A.m. labs reviewed hemoglobin stable Patient stable for discharge from orthopedic standpoint Patient recovering well. At this point time dressing changed today. She is working well with therapy. Patient stable for discharge from orthopedic standpoint. She is postoperative day 2 from a left hip hemiarthroplasty. This point time no further orthopedic surgical intervention at this time we will follow peripherally. Appreciate the consultation and allowing me to partake in the care of this patient. Patient will follow-up with me in 2 weeks in office. Patient family understand agree with current plan. All questions answered. Attestations Medical Necessity Statement*: Patient sustained a left displaced femoral neck fracture underwent left hip hemiarthroplasty requiring hospitalization and surgi berhane intervention. Coding Level of Care Code Acute Transfer Iron Operator for Noah Rothman Diagnoses Left displaced femoral neck fracture S72.002A Time Spent (min) 25
[2022-09-02] MEDS: budesonide 0.5 mg/2 mL Neb 0.25 MG INHALATION (08:16)
[2022-09-02] MEDS: atorvastatin 40 mg Tablet PO (08:54)
[2022-09-02] MEDS: iron polysaccharide complex 150 mg Capsule PO (08:54)
[2022-09-02] MEDS: clopidogrel 75 mg Tablet PO (08:54)
[2022-09-02] MEDS: cholecalciferol (vitamin D3) 1,000 unit Tablet 1000 UNIT PO (08:55)
[2022-09-02] MEDS: sennosides-docusate Tablet 2 TAB PO (08:55)
[2022-09-02] MEDS: calcium carb-vit d 600mg/400unit 1 Tablet 1 EACH PO (08:55)
[2022-09-02] MEDS: sertraline 50 mg Tablet PO (08:55)
[2022-09-02] MEDS: multivitamin therapeutic Tablet 1 TAB PO (08:55)
[2022-09-02] MEDS: cefTRIAXone 1,000 MG in sodium chloride 0.9% (plus) 50 ML 100 MG IV (10:14)
[2022-09-02] MEDS: mupirocin oint 22 gm 1 APPLIC NASAL (10:14)
[2022-09-02] MEDS: chlorhexidine gluconate 0.12% Btl 473 mL 30 ML MUCOUS MEM (10:20)
--- NOTE | 2022-09-02 10:20 | PM.DCS ---
Discharge Providers Date of Admission: 08/30/22 20:07 Date of Discharge: September 02, 2022 Attending Provider at Admission: Gabe Benavides Attending Provider at Discharge: Yevgeniy Prater MD Primary Care Provider: SULEMAN Dawkins Diagnoses at Discharge Discharge Diagnosis (1) Left displaced femoral neck fracture: Status: Acute Reason for Visit Reason for Visit: Fall, left hip pain Hospital Course Hospital Course Pleasant 77-year-old lady with history of COPD, HTN, carotid disease, cigarette smoking, came into ER for evaluation after a fall sustained after stubbing her toe and falling down, resulting in acute subcapital fracture of left hip.? She also sustained a laceration of left index finger. Patient was admitted to [facility] for a left hip fracture, status post left hip hemiarthroplasty, received inpatient physical therapy, discharge home with a follow-up with orthopedics as outpatient, discharge on pain control, and Lovenox as per orthopedic service Patient also had hyponatremia during hospitalization, this could potentially be an etiology behind her fall, her her chlorthalidone was stopped, no headache, blurry vision, no nausea, no vomiting however serum sodiums remain in the 130s, potentially her high-dose Zoloft could be an etiology, I have reduced the dose to 50 mg once daily. Follow-up with outpatient physician for recheck sodium levels. If they persistently remain high, then can reduce the dose to 25 mg or potentially wean her off Zoloft and try another depression medication. For hematuria have patient follow-up with Dr. George Smoking cessation counseling Physical Exam Const: COMMON NORMALS: no acute distress and patient oriented x3 Resp: COMMON NORMALS: normal respiratory effort, No retractions, No use of accessory muscles and clear to auscultation bilaterally AUSCULTATION: clear to auscultation bilaterally Cardio: COMMON NORMALS: regular rate, regular rhythm, S1 normal heart sound present and S2 normal heart sound present RATE: regular rate RHYTHM: regular rhythm HEART SOUNDS: S1 normal heart sound present and S2 normal heart sound present GI: COMMON NORMALS: Normal to inspection, nondistended, normoactive bowel sounds present, non-tender and no masses Extremity: COMMON NORMALS: no pedal edema Neuro: COMMON NORMALS: patient oriented x3 Psych: COMMON NORMALS: mental status grossly normal Urinary Catheter Management: Awad: Cath Placed During This Visit: yes, but has since been removed by the nurse Reason for Continuing Indwelling Catheter: Decision to DC Catheter Urinary Catheter Date of Insertion: 08/31/22 Urinary Catheter Time of Insertion: 09:55 Date Urinary Catheter Removed: 09/01/22 Time Urinary Catheter Discontinued: 12:18 Discharge Data Studies Completed and Pending Completed Studies During Hospitalization Category Date Time Status CT hip LT wo con* [id number] Stat Cat Scan 08/30/22 19:53 Completed XR chest 1V portable [id number] Stat Exams 08/30/22 20:52 Completed XR femur LT min 2V* [id number] Stat Exams 08/30/22 19:46 Completed XR hip LT 2-3V wo/w pel* [id number] Routine Exams 08/31/22 10:08 Completed XR hip LT 2-3V wo/w pel* [id number] Stat Exams 08/30/22 18:53 Completed XR knee LT 3V* [id number] Stat Exams 08/30/22 19:46 Completed XR pelvis 1-2V* [id number] Stat Exams 08/30/22 19:46 Completed Pending at discharge Category Date Time Status Complete Blood Count w/Auto AM LABS Lab 09/03/22 04:00 Ordered Radiology Impressions Femur X-Ray 08/30/22 19:46 IMPRESSION: Acute subcapital fracture of the left hip. Please see CT left hip report from same date. Knee X-Ray 08/30/22 19:46 IMPRESSION: No acute fracture demonstrated. Pelvis X-Ray 08/30/22 19:46 IMPRESSION: 1. Acute subcapital left hip fracture. 2. Pelvic bones appear intact. No pelvic fracture. Hip CT 08/30/22 19:53 IMPRESSION: Acute subcapital fracture of the left hip, as above. Chest X-Ray 08/30/22 20:52 IMPRESSION: 1. The lungs are hyperinflated, consistent with COPD. 2. No acute abnormality demonstrated. Hip/Pelvis X-Ray 08/31/22 10:08 IMPRESSION: Normal appearing left total hip arthroplasty. Laboratory Results WBC 7.5 10^3/uL (4.0-10.0) 09/02/22 02:54 RBC 3.90 10^6/uL (4.1-5.3) L 09/02/22 02:54 Hgb 11.8 g/dL (11.5-15.3) 09/02/22 02:54 Hct 39.6 % (37.0-47.0) 09/02/22 02:54 MCV 101.5 fl (81-99) H D 09/02/22 02:54 MCH 30.3 pg (28.0-34.0) 09/02/22 02:54 MCHC 29.8 g/dL (30.0-36.0) L D 09/02/22 02:54 RDW 13.0 % (12.1-15.1) 09/02/22 02:54 Plt Count 157 10^3/cmm (130-400) 09/02/22 02:54 MPV 9.9 fL (7.4-10.4) 09/02/22 02:54 Neut % (Auto) 78.2 % 09/02/22 02:54 Lymph % (Auto) 13.4 % 09/02/22 02:54 Crosby % (Auto) 7.7 % 09/02/22 02:54 Eos % (Auto) 0.1 % 09/02/22 02:54 Baso % (Auto) 0.3 % 09/02/22 02:54 Neut # (Auto) 5.87 10^3/uL (1.8-7.7) 09/02/22 02:54 Lymph # (Auto) 1.0 10^3/uL (0.8-4.8) 09/02/22 02:54 Crosby # (Auto) 0.6 10^3/uL (0.2-0.9) 09/02/22 02:54 Eos # (Auto) 0.0 10^3/uL (0.0-0.8) 09/02/22 02:54 Baso # (Auto) 0.0 10^3/uL (0.0-0.1) 09/02/22 02:54 Nucleated RBC % (auto) 0 % 09/02/22 02:54 Nucleated RBCs # 0.0 /100WBC 09/02/22 02:54 PT 12.50 SECONDS (12.1-14.9) 08/30/22 21:08 INR 0.90 (0.8-1.2) 08/30/22 21:08 APTT 28.5 SECONDS (23.9-36.7) 08/30/22 21:08 Sodium 132 mmol/L (136-145) L 09/02/22 02:54 Potassium 3.6 mmol/L (3.5-5.1) 09/02/22 02:54 Chloride 93 mmol/L (98-107) L 09/02/22 02:54 Carbon Dioxide 29 mmol/L (22-29) 09/02/22 02:54 Anion Gap 13.6 (5-19) 09/02/22 02:54 BUN 15 mg/dL (8-23) 09/02/22 02:54 Creatinine 0.6 mg/dL (0.5-0.9) 09/02/22 02:54 GFR Calculation Not Reportable 09/02/22 02:54 Glucose 121 mg/dL (65-115) H 09/02/22 02:54 Calculated Osmolality 276 mOsm/kg (285-295) L 09/02/22 02:54 Calcium 9.8 mg/dL (8.5-10.5) 09/02/22 02:54 Magnesium 2.3 mg/dL (1.7-2.3) 08/30/22 20:05 Total Bilirubin 0.7 mg/dL (0.15-1.2) 09/02/22 02:54 AST 24 U/L (0-32) 09/02/22 02:54 ALT < 5 U/L (0-33) 09/02/22 02:54 Alkaline Phosphatase 58 U/L (35-105) 09/02/22 02:54 Total Protein 6.1 g/dL (6.6-8.7) L 09/02/22 02:54 Albumin 3.6 g/dL (3.5-5.2) 09/02/22 02:54 Globulin 2.5 g/dL (1.3-4.6) 09/02/22 02:54 Urine Color Yellow (Yellow) 09/01/22 11:17 Urine Appearance Clear (CLEAR) 09/01/22 11:17 Urine pH 6 (5-7) 09/01/22 11:17 Ur Specific [place] 1.015 (1.005-1.030) 09/01/22 11:17 Urine Protein Neg (Negative) 09/01/22 11:17 Urine Glucose (UA) Norm (Normal) 09/01/22 11:17 Urine Ketones Negative (Negative) 09/01/22 11:17 Urine Blood 2+ (Negative) H 09/01/22 11:17 Urine Nitrate Negative (Negative) 09/01/22 11:17 Urine Bilirubin Neg (Negative) 09/01/22 11:17 Urine Urobilinogen Norm mg/dL (Negative) 09/01/22 11:17 Ur Leukocyte Esterase Negative (Negative) 09/01/22 11:17 Urine RBC 0-4 /hpf (0-2) H 09/01/22 11:17 Urine WBC None /hpf (0-5) 09/01/22 11:17 Ur Squamous Epith Cells None /hpf (0-5) 09/01/22 11:17 Triple Phos Crystals 0-4 /hpf H 08/30/22 19:35 Amorphous Sediment Not Reportable 09/01/22 11:17 Urine Bacteria Trace /hpf (NONE) 09/01/22 11:17 Urine Mucus 1+ /hpf 08/30/22 19:35 Blood Type AB Positive 08/31/22 04:05 Rho(D) Type Positive 08/31/22 04:05 Antibody Screen Negative 08/31/22 04:05 Vitals Last Vital Signs Temp 98.0 F 09/02/22 08:00 Pulse 89 09/02/22 08:18 Resp 19 H 09/02/22 08:18 BP 120/56 09/02/22 08:00 Pulse Ox 88 L 09/02/22 10:01 O2 Del Method 09/02/22 08:18 O2 Flow Rate 3 09/02/22 10:01 Discharge Plan Discharge Patient Disposition: Home Condition: Stable Prescriptions: New Endocet 5-325 mg tablet 1 tab PO Q6H PRN (Reason: pain) 7 Days Qty: 28 0RF nicotine 14 mg/24 hr Patch 24 Hour 1 patch transdermal Q24H 28 Days Qty: 28 0RF multivitamin with folic acid [Thera] 400 mcg Tablet 1 tab PO DAILY 30 Days Qty: 30 0RF calcium carbonate-vitamin D3 600 mg-10 mcg (400 unit) Tablet 1 ea PO BID 30 Days Qty: 60 0RF ondansetron 4 mg tablet,disintegrating 4 mg PO DAILY PRN (Reason: nausea and vomiting) 5 Days Qty: 10 0RF enoxaparin [Lovenox] 30 mg/0.3 mL syringe 30 mg SUBCUT DAILY 30 Days Qty: 30 0RF Continued cholecalciferol (vitamin D3) 5,000 unit tablet,disintegrating 5,000 unit PO BID coenzyme Q10 [Co Q-10] 100 mg capsule 100 mg PO DAILY albuterol sulfate 90 mcg/actuation HFA aerosol inhaler 2 puff inhalation Q6H PRN (Reason: shortness of breath or wheezing) Qty: 8.5 2RF albuterol sulfate 2.5 mg /3 mL (0.083 %) solution for nebulization 2.5 mg inhalation Q4H PRN (Reason: shortness of breath or wheezing) Qty: 180 2RF budesonide [Pulmicort] 0.5 mg/2 mL suspension for nebulization 0.5 mg INHALATION BID Qty: 60 2RF Breztri Aerosphere 160-9-4.8 mcg/actuation HFA aerosol inhaler 2 inh inhalation BID Qty: 10.7 2RF clopidogrel [Plavix] 75 mg tablet 75 mg PO DAILY Qty: 30 2RF magnesium oxide 400 mg magnesium tablet 400 mg PO BID Qty: 60 2RF nifedipine [Procardia XL] 60 mg tablet extended release 24 hr 60 mg PO DAILY Qty: 30 2RF potassium chloride 8 mEq capsule, extended release 8 meq PO DAILY Qty: 30 2RF rosuvastatin [Crestor] 10 mg tablet 10 mg PO DAILY Qty: 30 2RF Rx Instructions: Stop Tricor (DME) Disposable nebulizer circuit with mask See Rx Instructions .ROUTE .MEDSUPPLY Qty: 1 2RF Rx Instructions: As directed Changed sertraline [Zoloft] 50 mg tablet 50 mg PO DAILY Qty: 60 2RF Discontinued chlorthalidone 50 mg tablet 50 mg PO DAILY Qty: 30 2RF Discharge Orders: Discharge Order (Routine); Ordered 09/02/22 Ordered By: Yevgeniy Prater Other Ambulatory Orders: DME: Oxygen (Order) Location: None Selected Ordered By: Yevgeniy Prater DME: Walker (Order) Location: None Selected Ordered By: Karson Hercules Referrals: Juliann Dejesus FNP-C [Primary Care Provider] - 1-3 days Margarito George MD [Physician] - 1 month (hematuria) Jerel Hercules DO [Physician] - Discharge Diet: Advance as tolerated Discharge Activity: Limit activity as instructed Patient Instructions: Opioid Safety Activity Restrictions/Additional Instructions: Orthopedic discharge instructions: Patient may be weightbearing as tolerated to the left lower extremity Posterior Hip precautions Take pain medication as prescribed Take DVT prophylaxis as prescribed?Lovenox Take antinausea medication as needed Supplement with Citracal vitamin D Ice as needed Keep dressing in place and may change if becomes saturated, keep incision clean dry and intact. May take dressing off to shower and reapply a new dry dressing, no baths or soaks Follow-up with Dr. Hercules in office in 2 weeks. -Please stop smoking -For your low sodium levels, I have stopped chlorthalidone -In addition I had lowered her Zoloft to 50 mg once daily, have your primary care provider recheck your sodium levels, if they remain low, then Zoloft dose might need to continually be decreased and potentially weaned off as a source of your hyponatremia -See your primary care in 1 week -Follow-up with Doris in 1 month Discharge Attestations Time Spent in Discharge Care*: less than 30 min Quality Metrics Clinical Quality Measures [ No reported AMI, CVA or VTE this stay] Coding Level of Care Code Acute [facility] JEANA note Diagnoses Left displaced femoral neck fracture S72.002A
--- NOTE | 2022-09-02 11:10 | PC.SOCIAL ---
Pg 2 IMM Explained to pt Pg 2 IMM. No questions voiced. Provided pt a copy. Initialed, dated, & timed a copy & placed in chart.
== END 2022-09-02 13:47 | disposition home health service (06) | DRG 522 ==
LOC: ER 20:07 → MEDSURG 20:25
PROVIDERS: Emergency Medicine; Student in an Organized Health Care Education/Training Program; Admitting Provider Internal Medicine; Emergency Provider Physician Assistant; PCP Nurse Practitioner; Visit Provider Family Medicine
PROC: 0SRS0J9 Replacement of Left Hip Joint, Femoral Surface with Synthetic Substitute, Cemented, Open Approach (ICD-10-PCS; CPT 27125; principal; 2022-08-31 08:00)
DX: S72.012A Unspecified intracapsular fracture of left femur, initial encounter for closed fracture (principal); E87.1 Hypo-osmolality and hyponatremia; W01.0XXA Fall on same level from slipping, tripping and stumbling without subsequent striking against object, initial encounter; J44.9 Chronic obstructive pulmonary disease, unspecified; I10 Essential (primary) hypertension; F17.210 Nicotine dependence, cigarettes, uncomplicated; F41.8 Other specified anxiety disorders; E87.6 Hypokalemia; E78.2 Mixed hyperlipidemia; R82.90 Unspecified abnormal findings in urine; Z79.51 Long term (current) use of inhaled steroids; Z79.02 Long term (current) use of antithrombotics/antiplatelets; S61.211A Laceration without foreign body of left index finger without damage to nail, initial encounter
CPT/HCPCS: 36415; 51702; 71045; 72170; 73502; 73552; 73562; 73700; 80048; 80053; 81001; 83735; 85025; 85610; 85730; 86850; 86900; 94640; 94664; 94760; 96372; 97116; 97161; 97166; 97530; 97535; 99285; A9281; C1776; J0131; J0690; J0696; J1170; J1644; J1650; J1885; J2270; J2704; J3010; J3480; J3490; J7030; J7626

== ENCOUNTER → 2022-09-08 09:23 | Outpatient (BNVA) | payer OTHER, SELFPAY | PROVIDERS: PCP Nurse Practitioner; Visit Provider Nurse Practitioner | DX: E87.1 Hypo-osmolality and hyponatremia (principal) | CPT/HCPCS: 80053; 85025 ==

== ENCOUNTER → 2022-09-16 10:04 | Outpatient (BNVA) | payer OTHER, SELFPAY | PROVIDERS: PCP Nurse Practitioner; Visit Provider Student in an Organized Health Care Education/Training Program | DX: Z96.642 Presence of left artificial hip joint (principal) | CPT/HCPCS: 73502 ==

== ENCOUNTER → 2022-10-28 09:00 | Outpatient (BNVA) | payer OTHER, SELFPAY | PROVIDERS: PCP Nurse Practitioner; Visit Provider Student in an Organized Health Care Education/Training Program | DX: Z96.642 Presence of left artificial hip joint (principal) | CPT/HCPCS: 73502 ==

== ENCOUNTER → 2022-11-20 16:10 | Outpatient (BNVA) | payer OTHER, SELFPAY | PROVIDERS: PCP Nurse Practitioner; Visit Provider Nurse Practitioner | DX: E78.2 Mixed hyperlipidemia (principal); E55.9 Vitamin D deficiency, unspecified; I10 Essential (primary) hypertension | CPT/HCPCS: 80053; 80061; 82306; 82607; 84443; 85025 ==

== ENCOUNTER → 2023-01-22 09:41 | Outpatient (BNVA) | payer OTHER, SELFPAY | PROVIDERS: PCP Nurse Practitioner; Visit Provider Student in an Organized Health Care Education/Training Program | DX: Z96.642 Presence of left artificial hip joint (principal) | CPT/HCPCS: 73502 ==

== ENCOUNTER 2023-01-26 08:52 | Outpatient (CLI) | payer OTHER, SELFPAY ==
--- NOTE | 2023-01-26 09:00 | USCV_ITS ---
Heather Ramesh Age: 77 Gender: F : 1945 Exam Date: 01/26/2023 09:16 Ordering Phys: Jerel Hercules DO Technologist: CT Exam Location: [facility] [place] Indication: left le pain PROCEDURES: Venous duplex imaging was performed in only the left lower extremity. In addition, the posterior tibial and peroneal trunk were evaluated. On the left side, the common femoral, superficial femoral, profunda femoral, popliteal, posterior tibial, greater saphenous veins, and the peroneal trunk were identified and interrogated in the standard fashion. These veins were found to be easily compressible with spontaneous blood flow. No evidence of insufficiency or thrombus noted. FINDINGS: no dvt, calf area of concern appears to have echogenic areas within the superficial fascia CONCLUSIONS No evidence of left lower extremity DVT. Echogenic nodules in the superficial calf area of concern may represent small lipomas or fat necrosis/hematoma from prior trauma. Minesh Mahoney MD (Electronically Signed) Final Date: 26 January 2023 14:44 S
== END 2023-01-26 08:53 | disposition home or self-care (01) ==
LOC: RAD 08:54
PROVIDERS: PCP Nurse Practitioner; Visit Provider Student in an Organized Health Care Education/Training Program
DX: Z96.649 Presence of unspecified artificial hip joint (principal); Z48.89 Encounter for other specified surgical aftercare; M79.605 Pain in left leg
CPT/HCPCS: 93971

== ENCOUNTER → 2023-02-19 13:01 | Outpatient (BNVA) | payer OTHER, SELFPAY | PROVIDERS: PCP Nurse Practitioner; Visit Provider Nurse Practitioner | DX: J44.9 Chronic obstructive pulmonary disease, unspecified (principal); I73.9 Peripheral vascular disease, unspecified; I10 Essential (primary) hypertension; E78.2 Mixed hyperlipidemia; F41.9 Anxiety disorder, unspecified; F32.9 Major depressive disorder, single episode, unspecified | CPT/HCPCS: 80053; 80061; 84443; 85025 ==

== ENCOUNTER 2023-03-13 13:14 | Outpatient (CLI) | payer MEDICARE, SELFPAY ==
--- NOTE | 2023-03-13 13:00 | USCV_ITS ---
Heather Ramesh Age: 77 Gender: F : 1945 Exam Date: 03/13/2023 13:37 Ordering Phys: Juliann Dejesus Technologist: CT Exam Location: [facility] [place] Indication: CLAUDICATION,PVD Risk Factors: Previous Vascular Surgery: RIGHT LEFT BP: 149.0 / 70.00 BP: 140.0/ 67.00 0 0 Waveform Velocity (cm/s) Velocity (cm/s) Waveform Triphasic 116.3 Iliac Prox 62.2 Monophasic Triphasic 95.0 Iliac Mid 54.2 Monophasic Triphasic 108.8 Iliac Distal 46.1 Monophasic Triphasic 66.9 LEGAL NURSE CONSULTANT 55.5 Monophasic Monophasic 54.4 SFA Prox 127.1 Monophasic Monophasic 40.5 SFA Mid 73.0 Monophasic Monophasic SFA Dist Monophasic 76.3 48.4 Monophasic 76.3 POP 38.5 Monophasic N/A 0.0 BLADE BALANCER 13.0 Monophasic Monophasic 19.2 DPA 0.0 N/A 0.5 STEPAN 0.5 FINDINGS Moderate to heavy heterogenous plaques in the left iliac, femoral and popliteal arteries. Moderate to heavy dense irregular plaques in the right SFA and popliteal arteries. No Doppler flow signals were noted in the right posterior tibial and left dorsalis pedis arteries Resting STEPAN 0.5 bilaterally CONCLUSIONS 1. Abnormal resting ABIs bilaterally suggesting severe peripheral artery disease, possibly multisegmental 2. Moderate to heavy heterogenous dense irregular plaques at the superficial artery and popliteal arteries bilaterally 3. Possible total occlusion of the posterior tibial artery on the right side and dorsalis pedis artery on the left side Dr Vivien Main MD [facility] (Electronically Signed) Final Date: 16 Mar 2023 19:05 S
== END 2023-03-13 13:15 | disposition home or self-care (01) ==
LOC: RAD 13:18
PROVIDERS: PCP Nurse Practitioner; Visit Provider Nurse Practitioner
DX: I70.213 Atherosclerosis of native arteries of extremities with intermittent claudication, bilateral legs (principal)
CPT/HCPCS: 80053; 80061; 84443; 85025; 93925

== ENCOUNTER → 2023-04-09 15:30 | Outpatient (BNVA) | payer MEDICARE, SELFPAY | PROVIDERS: PCP Nurse Practitioner; Visit Provider Thoracic Surgery (Cardiothoracic Vascular Surgery) | DX: I73.9 Peripheral vascular disease, unspecified (principal); J44.9 Chronic obstructive pulmonary disease, unspecified; R01.1 Cardiac murmur, unspecified; F17.210 Nicotine dependence, cigarettes, uncomplicated | CPT/HCPCS: 99214 ==

== ENCOUNTER 2023-04-21 13:59 | Outpatient (CLI) | payer MEDICARE, SELFPAY ==
[2023-04-21 14:21] VITALS: PULSE 82; RESP 18; O2SAT 93
[2023-04-21] MEDS: albuterol 2.5 mg/3 mL Neb INHALATION (14:21)
== END 2023-04-21 14:00 | disposition home or self-care (01) ==
PROVIDERS: PCP Nurse Practitioner; Visit Provider Thoracic Surgery (Cardiothoracic Vascular Surgery)
DX: J44.9 Chronic obstructive pulmonary disease, unspecified (principal); F17.210 Nicotine dependence, cigarettes, uncomplicated; R94.2 Abnormal results of pulmonary function studies
CPT/HCPCS: 94060; 94729

== ENCOUNTER 2023-04-27 13:00 | Outpatient (CLI) | payer MEDICARE, SELFPAY ==
--- NOTE | 2023-04-27 13:00 | USCV_ITS ---
Heather Ramesh Age: 77 Gender: F : 1945 Exam Date: 04/27/2023 13:43 Ordering Phys: German Healy MD (Andy) ([email or web address] [place]) Technologist: CT Exam Location: [facility] [place] Indication: murmur BP: 130 / 65 HR: 70 Rhythm: Sinus Technical Quality: Adequate MEASUREMENTS (Male / Female) Normal Values 2D ECHO LV Diastolic Diameter PLAX 4.4 cm 4.2 - 5.9 / 3.9 - 5.3 cm LV Systolic Diameter PLAX 2.5 cm IVS Diastolic Thickness 0.9 cm 0.6 - 1.0 / 0.6 - 0.9 cm IVS Systolic Thickness 1.6 cm LVPW Diastolic Thickness 1.2 cm 0.6 - 1.0 / 0.6 - 0.9 cm LVPW Systolic Thickness 1.2 cm LVOT Diameter 2.1 cm LV Ejection Fraction 2D Teich 75.0 % LV Ejection Fraction MOD 2C 53.1 % LV Ejection Fraction 2C AL 53.2 % LA Diameter 3.7 cm Aorta at Sinotubular Diameter 2.1 cm IVC Diameter 1.9 cm M-MODE Aortic Annulus Diameter 2.7 cm LA Ao Ratio MM 1.5 MV E Point Septal Separation 0.5 cm DOPPLER AV Peak Velocity 240.3 cm/s LVOT Peak Velocity 151.0 cm/s AV Area Cont Eq vti 2.6 cm squared AV Area Cont Eq pk 2.3 cm squared MV Peak Velocity 123.0 cm/s MV Area PHT 2.9 cm squared Mitral E to A Ratio 0.8 MV E' Velocity 47.5 cm/s Mitral E to MV E' Ratio 13.7 Mitral E to LV E' Lateral Ratio 14.4 Mitral E to LV E' Septal Ratio 13.3 TR Peak Velocity 168.2 cm/s TR Peak Gradient 11.3 mmHg TR Mean Velocity 145.3 cm/s TR Mean Gradient 9.1 mmHg TR Velocity Time Integral 39.4 cm TV Peak E Velocity 61.0 cm/s Right Atrial Pressure 5.0 mmHg Pulmonary Artery Systolic Pressu 16.3 mmHg PV Peak Velocity 109.0 cm/s FINDINGS Left Ventricle Normal left ventricular size and systolic function, EF 75 %. Mild left ventricular hypertrophy. Grade I/IV diastolic dysfunction (abnormal relaxation filling pattern), normal to mildly elevated filling pressures. Right Ventricle The right ventricle is normal in size and function. Right Atrium The right atrium is normal in size. Left Atrium Mildly increased left atrial size. Mitral Valve Moderate mitral annular calcification. Aortic Valve Thickened aortic valve. Features of aortic valve sclerosis Tricuspid Valve Trace tricuspid valve regurgitation. Pulmonic Valve No gross abnormality noted Pericardium Normal pericardium without effusion. Aorta Normal aortic annulus size. IVC Normal inferior vena cava. CONCLUSIONS Normal left ventricular size and systolic function, EF 75 %. Mild left ventricular hypertrophy. Grade I/IV diastolic dysfunction (abnormal relaxation filling pattern), normal to mildly elevated filling pressures. Moderate mitral annular calcification. Thickened aortic valve with features of aortic valve sclerosis. Trace tricuspid valve regurgitation. Estimated pulmonary artery peak systolic pressure within normal limits There is no pericardial effusion. There are no intracardiac masses. Compared to the study from 05/16/2021, there may not be a significant change Dr Vivien Main MD [facility] (Electronically Signed) Final Date: 01 May 2023 09:54 S
== END 2023-04-27 13:01 | disposition home or self-care (01) ==
LOC: RAD 13:01
PROVIDERS: PCP Nurse Practitioner; Visit Provider Thoracic Surgery (Cardiothoracic Vascular Surgery)
DX: R01.1 Cardiac murmur, unspecified (principal); I51.7 Cardiomegaly; I34.81 Nonrheumatic mitral (valve) annulus calcification
CPT/HCPCS: 93306

== ENCOUNTER → 2023-05-08 11:10 | Outpatient (BNVA) | payer MEDICARE, SELFPAY | PROVIDERS: PCP Nurse Practitioner; Visit Provider Internal Medicine Pulmonary Disease | DX: J44.9 Chronic obstructive pulmonary disease, unspecified (principal); F17.210 Nicotine dependence, cigarettes, uncomplicated; I73.9 Peripheral vascular disease, unspecified | CPT/HCPCS: 99204 ==

== ENCOUNTER 2023-05-26 09:01 | Outpatient (CLI) | payer MEDICARE, SELFPAY ==
--- NOTE | 2023-05-26 09:00 | CT_ITS ---
WS: [id number] CT ANGIOGRAPHY OF THE ABDOMINAL AORTA WITH RUNOFF TO THE ANKLES HISTORY: leg pain TECHNIQUE: Arterial injection is performed during imaging to evaluate the aorta and runoff vessels to the ankles. MIP and volume rendering imaging has also been performed. All images are reviewed. All C T scans at [facility] use at least one of these dose optimization techniques: automated exposu re control; mA and/or kV adjustment per patient size (includes targeted exams where dose is matched t o clinical indication); or iterative reconstruction. Contrast: Omnipaque 350; 100 mL IV. DLP: 905.56 mGy.cm COMPARISON: Arterial duplex 03/13/2023. Abdominal aorta: Moderate calcified plaque with ectasia and tortuosity. Nonaneurysmal dilatation. Jus t greater than 50% stenosis origin of celiac axis. SMA is patent. Mild atherosclerotic plaque renal a rteries. RIGHT lower extremity arterial system: High-grade stenosis proximal RIGHT common iliac artery 70%. Ir regular calcified plaque. Continued high-grade stenoses throughout the common iliac artery. Complete occlusion of the RIGHT internal iliac artery. Dense calcified plaque continues into the external christian c artery with multifocal areas of stenoses approaching 50%. Multifocal areas of stenosis involving th e SFA stenoses approaching near complete occlusion is partially towards Joshua's canal. Loss of the n ormal lumen distal SFA towards Joshua's canal consistent with a complete occlusion. Partial reconstit ution near the popliteal artery. Calcified plaque continues into the arteries below the knee. Intermi ttent visualization of the arteries. With the ankle no significant amount of flow is identified. Dens e calcified plaque obscuring the lumen. LEFT lower extremity venous system: 50% stenosis origin LEFT common iliac artery. Calcified plaque an d noncalcified plaque. At least 70% stenosis mid common iliac artery. At the bifurcation there is david y high-grade stenosis and possible complete occlusion distal common iliac artery. Occluded internal i liac artery with multifocal areas of stenosis involving the external iliac artery. Multifocal areas o f stenosis SFA with very small caliber lumen. Towards the mid SFA there is complete occlusion or near complete occlusion. Through Joshua's canal multifocal areas of stenoses or complete occlusion. Recon stitution of the popliteal artery. Small caliber three-vessel runoff to the ankle with only intermitt ent visualization. Small hiatal hernia. Negative liver, gallbladder and spleen. No adrenal mass. No renal mass or obstru ction. Negative pancreas. No ascites or adenopathy. No GI tract obstruction. Enhancing well-circumscr ibed nodule in the cecum measures 10 mm and could very well be a polyp. Multilevel degenerative disc disease. Prior LEFT hip arthroplasty. CT/CT angio abd aorta runof [id number] IMPRESSION: 1. There is extensive atherosclerotic plaque noted bilaterally within the lowe r extremity arterial system. Areas of mild to moderate to severe stenosis with occlusions. 2. Tortuosity and moderate atherosclerosis aorta. No aneurysm. 3. High-grade stenosis proximal RIGHT common iliac artery, 70%. 4. Multifocal high-grade stenoses RIGHT common iliac artery with complete occl usion of the RIGHT internal iliac artery. 5. Multifocal stenoses throughout the RIGHT SFA with distal occlusion. 6. Limited three-vessel runoff to the RIGHT ankle. Intermittently visualized a rteries. 7. Mid LEFT common iliac artery stenosis 70%. 8. High-grade stenosis versus possible complete occlusion distal LEFT common i liac artery. 9. High-grade stenosis and possible complete occlusion of the LEFT internal il iac artery. 10. Complete occlusion of the mid LEFT SFA with multifocal areas of stenosis a nd possible additional areas of occlusion and LEFT Joshua's canal. 11. Three-vessel runoff to the LEFT ankle is limited. 12. Suspicious for 10 mm polyp in the cecum. This can be evaluated by colonosc opy.
[2023-05-26 10:16] LABS: Blood Urea Nitrogen 12 mg/dL (8-23)
[2023-05-26] MEDS: iohexol 350 mg/mL 500 mL Btl (per mL) IV (10:53)
== END 2023-05-26 09:02 | disposition home or self-care (01) ==
LOC: RAD 09:03
PROVIDERS: PCP Nurse Practitioner; Visit Provider Thoracic Surgery (Cardiothoracic Vascular Surgery)
DX: I70.203 Unspecified atherosclerosis of native arteries of extremities, bilateral legs (principal); I74.5 Embolism and thrombosis of iliac artery; I70.92 Chronic total occlusion of artery of the extremities; K63.5 Polyp of colon
CPT/HCPCS: 75635; 82565; 84520; Q9967

== ENCOUNTER 2023-06-16 11:53 | Outpatient (CLI) | payer MEDICARE, SELFPAY ==
--- NOTE | 2023-06-16 12:00 | CT_ITS ---
WS: [id number] LDCT LUNG CANCER SCREENING TECHNIQUE: Noncontrast CT of the chest with coronal and sagittal reformatted images. CLINICAL INFORMATION: Z12.2 - Encounter for screening for malignant neoplasm of... COMPARISON: None. DLP: 45.71 mGy.cm DIvol: Mean CTDIvol: 0.80 (mGy) All CT scans at [facility] use at least one of these dose optimization techniques: automat ed exposure control; mA and/or kV adjustment per patient size (includes targeted exams where dose is matched to clinical indication); or iterative reconstruction. FINDINGS: Noncalcified lobulated nodule right lower lobe measuring approximately 11 to 12 mm in maximum dimensi on. This is indeterminate and recommend further evaluation with PET/CT. Additional smaller lobulated nodule right lower lobe measuring 9 mm with prominent surrounding vessel s. Additional hazy semisolid groundglass opacities in the left lower lobe posteriorly measuring 7 to 8 mm. Mild chronic emphysematous changes. A few tiny subcentimeter nodules in the upper lobes. Subseg mental atelectasis in the right middle lobe. Semisolid opacity in the right upper lobe measuring 4 mm . Lobulated thoracic aorta with aortic calcification. Coronary calcification. No mediastinal or hilar l ymphadenopathy. Tiny esophageal hiatal hernia. No axillary lymphadenopathy. Small left adrenal nodule likely adenoma. Mild thoracic curve. Chronic compression T12 vertebral body. IMPRESSION:Noncalcified lobulated nodule right lower lobe measuring approximately 11 to 12 mm in maxi mum dimension. This is indeterminate and recommend further evaluation with PET/CT. CT/CT lung screening [id number] LUNG-RADS: 4A-Probably Suspicious FOLLOW UP: PET/CT recommended
== END 2023-06-16 11:54 | disposition home or self-care (01) ==
LOC: RAD 11:54
PROVIDERS: PCP Nurse Practitioner; Visit Provider Nurse Practitioner
DX: Z12.2 Encounter for screening for malignant neoplasm of respiratory organs (principal); Z87.891 Personal history of nicotine dependence
CPT/HCPCS: 71271

== ENCOUNTER → 2023-07-07 13:19 | Outpatient (BNVA) | payer MEDICARE, SELFPAY | PROVIDERS: PCP Nurse Practitioner; Visit Provider Internal Medicine | DX: I73.9 Peripheral vascular disease, unspecified (principal); F17.210 Nicotine dependence, cigarettes, uncomplicated | CPT/HCPCS: 99204 ==

== ENCOUNTER → 2023-09-08 12:52 | Outpatient (BNVA) | payer MEDICARE, SELFPAY | PROVIDERS: PCP Nurse Practitioner; Visit Provider Internal Medicine | DX: I73.9 Peripheral vascular disease, unspecified (principal) | CPT/HCPCS: 99214 ==

== ENCOUNTER → 2023-11-30 13:53 | Outpatient (BNVA) | payer MEDICARE, SELFPAY | PROVIDERS: PCP Nurse Practitioner; Visit Provider Nurse Practitioner | DX: J44.9 Chronic obstructive pulmonary disease, unspecified (principal); I73.9 Peripheral vascular disease, unspecified; I10 Essential (primary) hypertension; G47.00 Insomnia, unspecified; E78.2 Mixed hyperlipidemia; F41.9 Anxiety disorder, unspecified; E55.9 Vitamin D deficiency, unspecified; R91.1 Solitary pulmonary nodule; Z79.899 Other long term (current) drug therapy | CPT/HCPCS: 80053; 80061; 82607; 84443; 85025 ==

== ENCOUNTER → 2024-03-08 15:53 | Outpatient (BNVA) | payer MEDICARE, SELFPAY | PROVIDERS: PCP Nurse Practitioner; Visit Provider Internal Medicine | DX: I73.9 Peripheral vascular disease, unspecified (principal); F17.210 Nicotine dependence, cigarettes, uncomplicated | CPT/HCPCS: 99214 ==

== ENCOUNTER → 2024-03-22 15:25 | Outpatient (BNVA) | payer MEDICARE, SELFPAY | PROVIDERS: PCP Nurse Practitioner; Visit Provider Nurse Practitioner | DX: J44.9 Chronic obstructive pulmonary disease, unspecified (principal); I73.9 Peripheral vascular disease, unspecified; I10 Essential (primary) hypertension; G47.00 Insomnia, unspecified; E78.2 Mixed hyperlipidemia; F41.9 Anxiety disorder, unspecified; J32.9 Chronic sinusitis, unspecified; Z78.9 Other specified health status; J43.8 Other emphysema | CPT/HCPCS: 80053 ==

== ENCOUNTER → 2024-06-27 09:45 | Outpatient (BNVA) | payer OTHER, SELFPAY | PROVIDERS: PCP Nurse Practitioner; Visit Provider Nurse Practitioner | DX: I10 Essential (primary) hypertension (principal); E87.1 Hypo-osmolality and hyponatremia | CPT/HCPCS: 80053; 83735; 84443; 85025 ==

== ENCOUNTER 2024-06-28 14:14 | Inpatient (IN) | payer OTHER, SELFPAY ==
[2024-06-28] VITALS (56 sets, daily range): BP systolic 123–197; BP diastolic 66–97; PULSE 81–106; RESP 14–36; TEMP 36.4–37; O2SAT 91–98; BMI 24.1
--- NOTE | 2024-06-28 14:15 | XR_ITS ---
WS: [id number] Exam: XR chest 1V portable [id number] Date/Time of Exam: 06/28/2024 2:19 PM Reason For Exam: sob Comparison 08/30/2022. There is infiltrate and atelectasis in the RIGHT middle lobe. The lungs are fully expanded otherwise. There is hyperinflation. Normal cardiomediastinal silhouette. Bony structures are intact. XR/XR chest 1V portable [id number] IMPRESSION: 1. Infiltrate and atelectasis in the RIGHT middle lobe suggesting pneumonia. 2. Pulmonary hyperinflation.
--- NOTE | 2024-06-28 14:47 | ECG_ITS ---
[facility] Test Date: 2024-06-28 Pat Name: Heather Ramesh Department: Room: Gender: Female [employer] Technician: : 1945 Requested By: Mansoor Quiroga Order Number: [id number] Oumar MD: Saravanan Perez M.D. Measurements Intervals [place] Rate: 85 P: 74 VT: 137 QRS: 82 QRSD: 93 T: 70 QT: 358 QTc: 426 Interpretive Statements SINUS RHYTHM WITH SINUS ARRHYTHMIA POSSIBLE LEFT ATRIAL ENLARGEMENT [-0.1mV P-WAVE IN V1/V2] No previous ECG available for comparison Electronically Signed On 06-28-2024 16:26:50 CDT by Saravanan Perez M.D. [id number]
[2024-06-28] MEDS: meclizine 25 mg tablet 50 MG PO (15:07)
[2024-06-28 15:13] LABS: Basophils % 0.2 %; Hematocrit 49.1 % (36-47); Lymphocytes % 14.3 %; Mean Corpuscular HGB Conc 33.6 g/dL (30-55); Mean Corpuscular Hemoglobin 29.8 pg (27-33); Mean Corpuscular Volume 88.8 fl (85-98); Mean Platelet Volume 9.9 fL (7.4-10.4); Monocytes # 0.2 10^3/uL (0.2-0.9); Monocytes % 3.5 %; Neutrophils # 5.43 10^3/uL (1.8-7.7); Neutrophils % 81.7 %; Nucleated Red Blood Cells % 0 %; Platelet Count 214 10^3/cmm (157-399); Red Blood Count 5.53 10^6/uL (3.85-5.65); Red Cell Distribution Width 12.8 % (12.1-15.1); White Blood Count 6.64 10^3/uL (3.29-11.43)
--- NOTE | 2024-06-28 15:21 | CTR_ITS ---
PROCEDURE INFORMATION: Exam: CT Head Without Contrast Exam date and time: 06/28/2024 3:46 PM Age: 78 years old Clinical indication: Dizziness; Additional info: Dizzy TECHNIQUE: Imaging protocol: Computed tomography of the head without contrast. Radiation optimization: All CT scans at this facility use at least one of these dose optimization techniques: automated exposure control; mA and/or kV adjustment per patient size (includes targeted exams where dose is matched to clinical indication); or iterative reconstruction. COMPARISON: No relevant prior studies available. RADIATION DOSE METRICS: Total DLP (mGy-cm): 1046 FINDINGS: Brain: There is a 9 mm enhancing mass adjacent to the falx in the high right frontal region (4-37). There is no associated edema and this may represent a meningioma but it is not calcified. Consider MR to evaluate for additional lesions and to further characterize this lesion. Periventricular white matter lucency represents atherosclerotic encephalopathic changes. Cerebral ventricles: No ventriculomegaly. Paranasal sinuses: Visualized sinuses are unremarkable. No fluid levels. Mastoid air cells: Visualized mastoid air cells are well aerated. Bones: Unremarkable. No acute fracture. Soft tissues: Unremarkable. CT/CT head wo con* [id number] IMPRESSION: Small parasagittal right frontal mass.
--- NOTE | 2024-06-28 15:26 | W.ED.SOB ---
HPI - SOB/Dyspnea General: Chief Complaint: Shortness of Breath/Dyspnea Stated Complaint: SOB Time Seen by Provider: 06/28/24 14:52 Source: patient Mode of arrival: ambulatory Limitations: no limitations History of Present Illness: HPI Narrative: 78-year-old female here with multiple complaints she is over the last 2 weeks she has not been feeling well she states she had been having some increasing shortness of breath does have a history of COPD states she had some diarrhea that resolved she has been having fatigue along with some dizziness. Denies any chest pain denies any abdominal pain currently she had cellulitis on her legs she states along with fluid retention she has been on Lasix along with antibiotic that she is finished with the antibiotic and has had improvement to her legs. Denies any fever. Associated symptoms: Reports dizziness; Deny abdominal pain, chest pain, fever(s), nausea or vomiting Related Data Home Medications Medication Instructions Recorded Confirmed cholecalciferol (vitamin D3) 125 5,000 unit PO BID 12/06/19 06/27/24 mcg (5,000 unit) disintegrating tablet coenzyme Q10 100 mg capsule (Co 100 mg PO DAILY 06/18/21 06/27/24 Q-10) Previous Rx's Medication Instructions Recorded Disposable nebulizer circuit with #1 ea 12/09/21 mask cilostazol 100 mg tablet 100 mg PO BID #180 tabs 07/07/23 nifedipine 60 mg tablet,extended 60 mg PO DAILY #30 tabs 03/22/24 release 24 hr (Procardia XL) albuterol sulfate 2.5 mg/3 mL 2.5 mg (3 mL) inhalation Q4H PRN 06/07/24 (0.083 %) solution for nebulization shortness of breath or wheezing #180 mL albuterol sulfate 90 mcg/actuation 2 puff inhalation Q6H PRN 06/07/24 aerosol inhaler shortness of breath or wheezing #8.5 grams budesonide 0.5 mg/2 mL suspension 0.5 mg (2 mL) inhalation BID #60 mL 06/07/24 for nebulization (Pulmicort) budesonide 160 mcg-glycopyr 9 2 inh inhalation BID #10.7 grams 06/07/24 mcg-formot 4.8 mcg/actuation HFA inhaler (Breztri Aerosphere) furosemide 40 mg tablet (Lasix) 40 mg PO QAM #30 tabs 06/07/24 magnesium oxide 400 mg PO BID #60 tabs 06/07/24 quetiapine 50 mg tablet (Seroquel) 25 mg (1/2 x 50 mg) PO .at bedtime 06/07/24 #16 tabs rosuvastatin 20 mg tablet 20 mg PO DAILY #30 tabs 06/07/24 sertraline 50 mg tablet (Zoloft) 50 mg PO DAILY #60 tabs 06/07/24 sucralfate 100 mg/mL oral 10 ml PO BID #200 mL 06/27/24 suspension (Carafate) valsartan 320 mg tablet 320 mg PO DAILY #30 tabs 06/27/24 Allergies Allergy/AdvReac Type Severity Reaction Status Date / Time cefuroxime [From Ceftin] AdvReac Severe ADR-Gastrointestinal Verified 06/28/24 14:26 Upset Review of Systems Const: Reports: fatigue; Denies: fever(s), chills, body aches or change in appetite Eyes: Denies: blurry vision or eye discomfort ENMT: Denies: throat pain or dental pain Card: Denies: chest pain Resp: Reports: dyspnea GI: Reports: diarrhea; Denies: abdominal pain, nausea or vomiting : Denies: dysuria Musc: Denies: neck pain or back pain Neuro: Reports: dizziness; Denies: headache(s) PFSH ED PFSH: Medical History PAD (peripheral artery disease) Left displaced femoral neck fracture Murmur Personal history of nicotine dependence COPD (chronic obstructive pulmonary disease) Anxiety and depression Essential (primary) hypertension Vitamin D deficiency Mixed hyperlipidemia Surgical History S/P hip hemiarthroplasty History of breast biopsy Left Negative at age 20's Family History Family/Other Nicotine addiction Social History Smoking and tobacco/nicotine status: former use of tobacco/nicotine Second hand smoke exposure: Yes Alcohol intake: never Substance/Drug Use: never Adopted: No Caregiver/support person: No Lives independently: Yes Household members: spouse Housing: House Marital status: Number of children: 6 service: No Current occupational status: unemployed Current occupational exposures/hazards: No Pets and animals: Yes Do you think of yourself as: Straight/Heterosexual Current gender identity: Female Course Vital Signs: Vital signs: Vital Signs Temperature 97.5 F L 06/28/24 14:21 Pulse Rate 87 06/28/24 17:00 Respiratory Rate 20 H 06/28/24 17:00 Blood Pressure 197/97 06/28/24 17:00 Pulse Oximetry 91 06/28/24 17:00 Oxygen Delivery Me thod Room Air 06/28/24 14:21 MDM - SOB/Dyspnea Medical Decision Making Patient presents here with shortness of breath along with some dizziness he is found to have a pneumonia she did become hypoxic with ambulation and desatted to 84%. Her vertigo has been going on for a week she has no signs of acute stroke she does have a mass seen on her head CT I spoke to hospitalist will admit at this time Medical Records I reviewed the patient's medical records. Lab Data I reviewed the patient's lab results. 06/28/24 14:55 06/28/24 14:55 Labs/Radiology: Radiology Impressions Chest X-Ray 06/28/24 14:15 IMPRESSION: 1. Infiltrate and atelectasis in the RIGHT middle lobe suggesting pneumonia. 2. Pulmonary hyperinflation. Head CT 06/28/24 15:21 IMPRESSION: Small parasagittal right frontal mass. Laboratory Results WBC 6.64 10^3/uL (3.29-11.43) 06/28/24 14:55 RBC 5.53 10^6/uL (3.85-5.65) 06/28/24 14:55 Hgb 16.50 g/dL (11.27-16.99) 06/28/24 14:55 Hct 49.1 % (36-47) H 06/28/24 14:55 MCV 88.8 fl (85-98) 06/28/24 14:55 MCH 29.8 pg (27-33) 06/28/24 14:55 MCHC 33.6 g/dL (30-55) 06/28/24 14:55 RDW 12.8 % (12.1-15.1) 06/28/24 14:55 Plt Count 214 10^3/cmm (157-399) 06/28/24 14:55 MPV 9.9 fL (7.4-10.4) 06/28/24 14:55 Neut % (Auto) 81.7 % 06/28/24 14:55 Lymph % (Auto) 14.3 % 06/28/24 14:55 [place] % (Auto) 3.5 % 06/28/24 14:55 Eos % (Auto) 0.0 % 06/28/24 14:55 Baso % (Auto) 0.2 % 06/28/24 14:55 Neut # (Auto) 5.43 10^3/uL (1.8-7.7) 06/28/24 14:55 Lymph # (Auto) 1.0 10^3/uL (0.8-4.8) 06/28/24 14:55 [place] # (Auto) 0.2 10^3/uL (0.2-0.9) 06/28/24 14:55 Eos # (Auto) 0.0 10^3/uL (0.0-0.8) 06/28/24 14:55 Baso # (Auto) 0.0 10^3/uL (0.0-0.1) 06/28/24 14:55 Nucleated RBC % (auto) 0 % 06/28/24 14:55 Nucleated RBCs # 0.0 /100WBC 06/28/24 14:55 Sodium 135 mmol/L (136-145) L 06/28/24 14:55 Potassium 3.6 mmol/L (3.5-5.1) 06/28/24 14:55 Chloride 96 mmol/L (98-107) L 06/28/24 14:55 Carbon Dioxide 25 mmol/L (22-29) 06/28/24 14:55 Anion Gap 17.6 (5-19) 06/28/24 14:55 BUN 15 mg/dL (8-23) 06/28/24 14:55 Creatinine 0.6 mg/dL (0.5-0.9) 06/28/24 14:55 GFR Calculation Not Reportable 06/28/24 14:55 Glucose 117 mg/dL (65-115) H 06/28/24 14:55 Calculated Osmolality 282 mOsm/kg (285-295) L 06/28/24 14:55 Calcium 9.8 mg/dL (8.5-10.5) 06/28/24 14:55 Total Bilirubin 0.7 mg/dL (0.15-1.2) 06/28/24 14:55 AST 15 U/L (0-32) 06/28/24 14:55 ALT < 5 U/L (0-33) 06/28/24 14:55 Alkaline Phosphatase 80 U/L (35-105) 06/28/24 14:55 NT-Pro-B Natriuret Pep 590 pg/mL (0-450) H 06/28/24 14:55 Total Protein 7.6 g/dL (6.6-8.7) 06/28/24 14:55 Albumin 4.5 g/dL (3.5-5.2) 06/28/24 14:55 Globulin 3.1 g/dL (1.3-4.6) 06/28/24 14:55 Lipase 20 U/L (13-60) 06/28/24 14:55 Amorphous Sediment Not Reportable 06/28/24 16:44 All radiology interpretation(s) finalized by discharge EKG Data EKG 1: I personally reviewed and interpreted this EKG as follows: EKG Interpretation Date: 06/28/24 EKG interpretation time: 14:47 Interpretation: nsr hr [address] elevation qrs 93 qtc 400 EKG 2: I personally reviewed and interpreted this EKG as follows: EKG Interpretation Date: 06/28/24 EKG interpretation time: 15:24 Interpretation: sinus [place] hr [address] or t wave abnormalities qrs 106 qtc 448 Discharge Plan Discharge Condition: Stable Prescriptions: No Action cholecalciferol (vitamin D3) 5,000 unit tablet,disintegrating 5,000 unit PO BID coenzyme Q10 [Co Q-10] 100 mg capsule 100 mg PO DAILY valsartan 320 mg tablet 320 mg PO DAILY Qty: 30 2RF sucralfate [Carafate] 100 mg/mL suspension 10 ml PO BID Qty: 200 0RF cilostazol 100 mg tablet 100 mg PO BID Qty: 180 3RF nifedipine [Procardia XL] 60 mg tablet extended release 24hr 60 mg PO DAILY Qty: 30 2RF Hold Instructions: Swelling and stool problems albuterol sulfate 2.5 mg /3 mL (0.083 %) solution for nebulization 2.5 mg inhalation Q4H PRN (Reason: shortness of breath or wheezing) Qty: 180 2RF albuterol sulfate 90 mcg/actuation HFA aerosol inhaler 2 puff inhalation Q6H PRN (Reason: shortness of breath or wheezing) Qty: 8.5 2RF budesonide [Pulmicort] 0.5 mg/2 mL suspension for nebulization 0.5 mg INHALATION BID Qty: 60 2RF Breztri Aerosphere 160-9-4.8 mcg/actuation HFA aerosol inhaler 2 inh inhalation BID Qty: 10.7 2RF magnesium oxide 400 mg magnesium tablet 400 mg PO BID Qty: 60 2RF quetiapine [Seroquel] 50 mg tablet 25 mg PO .at bedtime Qty: 16 2RF rosuvastatin 20 mg tablet 20 mg PO DAILY Qty: 30 2RF furosemide [Lasix] 40 mg tablet 40 mg PO QAM Qty: 30 0RF Zoloft 50 mg tablet 50 mg PO DAILY Qty: 60 2RF (DME) Disposable nebulizer circuit with mask See Rx Instructions .ROUTE .MEDSUPPLY Qty: 1 2RF Rx Instructions: As directed Referrals: Juliann Dejesus, CLINICAL RESEARCH TECHNICIAN-C [Primary Care Provider] - Coding Level of Care Code ED Internal Audit Senior Manager for Noah Rothman
[2024-06-28 15:41] LABS: Alanine Aminotransferase < 5 U/L (0-33); Albumin Level 4.5 g/dL (3.5-5.2); Alkaline Phosphatase 80 U/L (35-105); Anion Gap 17.6 (5-19); Aspartate Amino Transferase 15 U/L (0-32); Blood Urea Nitrogen 15 mg/dL (8-23); Calcium 9.8 mg/dL (8.5-10.5); Carbon Dioxide 25 mmol/L (22-29); Chloride 96 mmol/L (98-107); Globulin 3.1 g/dL (1.3-4.6); Glucose 117 mg/dL (65-115); NT Pro B Type Natriuretic Pept 590 pg/mL (0-450); Osmolality Calculated 282 mOsm/kg (285-295); Potassium 3.6 mmol/L (3.5-5.1); Sodium 135 mmol/L (136-145); Total Bilirubin 0.7 mg/dL (0.15-1.2); Total Protein 7.6 g/dL (6.6-8.7)
[2024-06-28 15:49] LABS: Lipase 20 U/L (13-60)
[2024-06-28] MEDS: ondansetron 2 mg/ML SDV 2 mL 4 MG IVP ×2 (16:17→19:32)
[2024-06-28 16:52] LABS: Charge for UA Resulting for Rev
[2024-06-28 16:58] LABS: Bilirubin Urine Negative (Negative); Blood Urine 2+ (Negative); Glucose Urine UA Negative (Normal); Ketones Urine 2+ (Negative); Leukocyte Esterase Urine Negative (Negative); Nitrate Urine Negative (Negative); Protein Urine 2+ (Negative); Specific Gravity, Urine 1.025 (1.005-1.030); Urine Appearance Clear (CLEAR); Urine Color Dark Yellow (Yellow)
[2024-06-28 17:03] LABS: Bacteria Urine 1+ /hpf; Hyaline Casts Urine 2.46 /lpf; RBC Urine 21-50 /hpf (0-2); WBC Urine 0-5 /hpf (0-5)
[2024-06-28 17:12] LABS: Add Urine Culture? Yes
[2024-06-28] MEDS: hyDRALAzine 20 mg/mL INJ 1 mL 10 MG IVP (17:42)
[2024-06-28] MEDS: levofloxacin-dextrose 5 % 750 MG/150 ML PREMIX 100 MG IV (17:45)
--- NOTE | 2024-06-28 19:01 | ECG_ITS ---
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 Measurements Intervals [place] Rate: 104 P: 59 MI: 130 QRS: 75 QRSD: 94 T: 65 QT: 364 QTc: 480 Interpretive Statements SINUS TACHYCARDIA POSSIBLE LEFT ATRIAL ENLARGEMENT [-0.1mV P-WAVE IN V1/V2] MODERATE ST DEPRESSION [0.05+ mV ST DEPRESSION] Compared to ECG 06/28/2024 14:47:40 ST (T wave) deviation now present Sinus rhythm no longer present Sinus arrhythmia no longer present Electronically Signed On 06-29-2024 8:04:45 CDT by Saravanan Perez M.D. [id number]
--- NOTE | 2024-06-28 19:03 | P.HP_ITS ---
Providers/Chief Complaint 2 Admitting Physician: Yevgeniy Prater MD Primary Care Provider: Juliann Dejesus, MOTOR [employer]LE EXAMINER-C Chief Complaint: SOB History of Present Illness Heather Ramesh is a 78 year old female with a past medical history of COPD, history of smoking, hypertension, history of hypertension, peripheral vascular disease, who presents [facility] due to weakness, fatigue, dizziness, shortness of breath, cough for the last week and a half. According to patient, for the last week and a half, she has been feeling unwell, fatigue, malaise, shortness of breath, cough, shortness of breath with exertion, intermittent chest discomfort. She also reports dizziness, dizziness upon standing, no facial droop, no slurring of her words, no focal weakness, no focal paresthesias,. Denies any sick contacts, recent travel. In the emergency room she was hypoxic on 2 L does not use oxygen at home. Review of Systems 2 Const: Reports: chills, fatigue and malaise Card: Reports: chest pain Resp: Reports: dyspnea GI: Denies: abdominal pain : Denies: flank pain Neuro: Denies: headache(s) Medications/Allergies Home Medications Medication Instructions Recorded Confirmed Last Taken Type cholecalciferol (vitamin D3) 125 5,000 unit PO BID 12/06/19 06/27/24 Unknown History mcg (5,000 unit) disintegrating tablet coenzyme Q10 100 mg capsule (Co 100 mg PO DAILY 06/18/21 06/27/24 Unknown History Q-10) Disposable nebulizer circuit with #1 ea 12/09/21 06/27/24 Unknown Rx mask cilostazol 100 mg tablet 100 mg PO BID #180 tabs 07/07/23 06/27/24 Unknown Rx nifedipine 60 mg tablet,extended 60 mg PO DAILY #30 tabs 03/22/24 06/27/24 Unknown Rx release 24 hr (Procardia XL) albuterol sulfate 2.5 mg/3 mL 2.5 mg (3 mL) inhalation Q4H PRN 06/07/24 06/27/24 Unknown Rx (0.083 %) solution for nebulization shortness of breath or wheezing #180 mL albuterol sulfate 90 mcg/actuation 2 puff inhalation Q6H PRN 06/07/24 06/27/24 Unknown Rx aerosol inhaler shortness of breath or wheezing #8.5 grams budesonide 0.5 mg/2 mL suspension 0.5 mg (2 mL) inhalation BID #60 mL 06/07/24 06/27/24 Unknown Rx for nebulization (Pulmicort) budesonide 160 mcg-glycopyr 9 2 inh inhalation BID #10.7 grams 06/07/24 06/27/24 Unknown Rx mcg-formot 4.8 mcg/actuation HFA inhaler (Breztri Aerosphere) furosemide 40 mg tablet (Lasix) 40 mg PO QAM #30 tabs 06/07/24 06/27/24 Unknown Rx magnesium oxide 400 mg PO BID #60 tabs 06/07/24 06/27/24 Unknown Rx quetiapine 50 mg tablet (Seroquel) 25 mg (1/2 x 50 mg) PO .at bedtime 06/07/24 06/27/24 Unknown Rx #16 tabs rosuvastatin 20 mg tablet 20 mg PO DAILY #30 tabs 06/07/24 06/27/24 Unknown Rx sertraline 50 mg tablet (Zoloft) 50 mg PO DAILY #60 tabs 06/07/24 06/27/24 Unknown Rx sucralfate 100 mg/mL oral 10 ml PO BID #200 mL 06/27/24 06/27/24 Unknown Rx suspension (Carafate) valsartan 320 mg tablet 320 mg PO DAILY #30 tabs 06/27/24 06/27/24 Unknown Rx Allergies Allergy/AdvReac Type Severity Reaction Status Date / Time cefuroxime [From Ceftin] AdvReac Severe ADR-Gastrointestinal Verified 06/28/24 14:26 Upset PFSH Acute 2 PFSH: Medical History PAD (peripheral artery disease) Left displaced femoral neck fracture Murmur Personal history of nicotine dependence COPD (chronic obstructive pulmonary disease) Anxiety and depression Essential (primary) hypertension Vitamin D deficiency Mixed hyperlipidemia Surgical History S/P hip hemiarthroplasty History of breast biopsy Left Negative at age 20's Family History Family/Other Nicotine addiction Social History Smoking and tobacco/nicotine status: former use of tobacco/nicotine Second hand smoke exposure: Yes Alcohol intake: never Substance/Drug Use: never Adopted: No Caregiver/support person: No Lives independently: Yes Household members: spouse Housing: House Marital status: Number of children: 6 service: No Current occupational status: unemployed Current occupational exposures/hazards: No Pets and animals: Yes Do you think of yourself as: Straight/Heterosexual Current gender identity: Female Vitals/I&O/Wt Last Vital Signs Temp 97.5 F L 06/28/24 14:21 Pulse 104 H 06/28/24 18:45 Resp 27 H 06/28/24 18:45 BP 143/80 06/28/24 18:45 Pulse Ox 96 06/28/24 18:45 O2 Del Method Nasal Cannula 06/28/24 17:45 O2 Flow Rate 2 06/28/24 17:45 Weight last 48 hrs Weight 70.307 kg Physical Exam 2 Const: COMMON NORMALS: no acute distress and patient oriented x3 HENMT: COMMON NORMALS: normocephalic HEAD & SCALP: normocephalic Eye: COMMON NORMALS: Equal, round and reactive pupils present and EOMs intact bilaterally Neck/C-Spine: COMMON NORMALS: no JVD Lymph: LYMPHATIC: no lymphadenopathy noted Resp: COMMON NORMALS: normal respiratory effort, No retractions and No use of accessory muscles AUSCULTATION: crackles and wheezes Cardio: COMMON NORMALS: regular rate, regular rhythm, S1 normal heart sound present and S2 normal heart sound present RATE: regular rate RHYTHM: r egular rhythm HEART SOUNDS: S1 normal heart sound present and S2 normal heart sound present GI: COMMON NORMALS: Normal to inspection, nondistended, normoactive bowel sounds present, Soft to palpation and non-tender Extremity: COMMON NORMALS: no calf tenderness and no pedal edema Neuro: COMMON NORMALS: patient oriented x3, CN's II-XII intact bilaterally and moves all extremities Psych: COMMON NORMALS: mental status grossly normal Data 06/28/24 14:55 06/28/24 14:55 Micro: Microbiology 06/28/24 17:22 Blood Culture - Preliminary Blood SPECIMEN COLLECTED 06/28/24 17:22 Blood Culture - Preliminary Blood SPECIMEN COLLECTED A&P Assessment and plan (1) Acute respiratory failure with hypoxia: (2) Pneumonia: (3) Dizziness: (4) Dehydration: (5) COPD exacerbation: (6) Intracranial mass: Plan Intracranial mass CT brain Brain: There is a 9 mm enhancing mass adjacent to the falx in the high right frontal region (4-37). There is no associated edema and this may represent a meningioma but it is not calcified. Consider MR to evaluate for additional lesions and to further characterize this lesion. -Is not exactly clear if this is playing a role to her dizziness -Will consider MRI based on clinical progress versus outpatient Acute hypoxic respiratory failure -Secondary to COPD exacerbation Secondary to pneumonia ? Plan ? CT angiogram the chest ? Continue Levaquin ? DuoNeb ? Budesonide ? Monitor respiratory status closely -Respiratory viral panel -Full code ? Lovenox for DVT prophylaxis COPD exacerbation as above Pneumonia, blood cultures, as above Dizziness ? Does have a history of peripheral vascular disease ? Will order a carotid ultrasound ? Does have a murmur on exam had a cardiac echo in 2022 CONCLUSIONS Normal left ventricular size and systolic function, EF 75 %. Mild left ventricular hypertrophy. Grade I/IV diastolic dysfunction (abnormal relaxation filling pattern), normal to mildly elevated filling pressures. Moderate mitral annular calcification. Thickened aortic valve with features of aortic valve sclerosis. Trace tricuspid valve regurgitation. Estimated pulmonary artery peak systolic pressure within normal limits There is no pericardial effusion. There are no intracardiac masses. -Will consider repeating cardiac echo based on clinical progress -Will consider orthostatic vitals based on clinical progress -IV fluids Fluids Chest discomfort ? Atypical ? Serial EKGs, serial troponins, telemetry monitoring Attestations 2 Medical Necessity Statement*: Patient requires hospitalization, inpatient, greater than 2 midnights, for acute hypoxic respiratory failure secondary pneumonia, COPD exacerbation, dizziness, Diagnoses Acute respiratory failure with hypoxia J96.01 Pneumonia J18.9 Dizziness R42 Dehydration E86.0 COPD exacerbation J44.1 Intracranial mass R90.0
--- NOTE | 2024-06-28 19:09 | PC.NURSE ---
attempted to call report to the floor at this time. nurse is getting report and will call back when available.
--- NOTE | 2024-06-28 19:27 | USCV_ITS ---
Heather Ramesh Age: 78 Gender: F : 1945 Exam Date: 06/28/2024 20:05 Ordering Phys: Yevgeniy Prater MD Technologist: DOLORES Exam Location: [facility] [place] Indication: dizziness, history of COPD, SOB, long-term smoker, continues smoking. Risk Factors: dizziness, history of COPD, SOB, long-term smoker, continues smoking. Previous Vascular Surgery: none Right Brachial BP: 148 / 80 Left Brachial BP: / Right Left Velocity (cm/s) Spectral Plaque Velocity (cm/s) Spectral Plaque Syst/Diast Broadening Syst/Diast Broadening 106.10/8.90 Min Hetro Prox CCA 88.90 / 18.90 Min Hetro 78.90/ 19.30 Min Ayaan Mid CCA 85.60 / 19.90 Mod Ayaan 76.30/ 18.00 Mod Ayaan Distal CCA 69.20 / 10.80 Min Ayaan 123.90/25.90 Mod Ayaan Prox ICA 194.30/ 35.60 Marked Ayaan 127.30/30.00 Min Hetro Mid ICA 127.30/ 26.40 Mod Ayaan 147.70/44.80 Min Homo Distal ICA 131.60/ 35.00 Mod Hetro 184.90 Mod Ayaan ECA 128.30 Min Hetro 2.20 ICA/CCA 2.80 Antegrade Vertebral Antegrade 38.40/ 8.40 cm/s 49.10/ 8.40 cm/s Tri Subclavian Tri 74.80 102.7 0 CONCLUSIONS Right ICA stenosis <50% at the upper end of the range.. Moderate calcified atheromatous plaque right carotid bulb/ICA. Left ICA stenosis 50-69%. Moderate calcified atheromatous plaque left carotid bulb/ICA. Scattered calcified plaque in both CCA's Normal antegrade Doppler flow noted in the right vertebral artery. Normal antegrade Doppler flow noted in the left vertebral artery. Minesh Mahoney MD (Electronically Signed) Final Date: 29 June 2024 08:48 S
--- NOTE | 2024-06-28 19:27 | CTR_ITS ---
PROCEDURE INFORMATION: Exam: CTA Chest With Contrast Exam date and time: 06/28/2024 8:59 PM Age: 78 years old Clinical indication: Cough and shortness of breath; Smoker's cough; Additional info: Ahortness of breath, cough, TECHNIQUE: Imaging protocol: Computed tomographic angiography of the chest with contrast. Exam focused on the arteries. 3D rendering (Not supervised by radiologist): MIP and/or 3D reconstructed images were created by the technologist. Radiation optimization: All CT scans at this facility use at least one of these dose optimization techniques: automated exposure control; mA and/or kV adjustment per patient size (includes targeted exams where dose is matched to clinical indication); or iterative reconstruction. Contrast material: OMNI 350; Contrast volume: 100 ml; Contrast route: INTRAVENOUS (IV); COMPARISON: CT lung screening [id number] 06/16/2023 12:05 PM RADIATION DOSE METRICS: Total DLP (mGy-cm): 292.89 FINDINGS: Limitations: Mild motion artifact. Pulmonary arteries: Limited visualization of the small peripheral pulmonary arteries secondary to motion artifact. No definite vascular intraluminal filling defects to suggest large or central acute pulmonary embolism. Aorta: Atherosclerotic tortuosity and calcification of the thoracic aorta. No thoracic aortic aneurysm or dissection. Lungs: Mild emphysema and bronchial thickening suggestive of bronchitis with right middle lobe atelectasis or scarring. A couple small adjacent 7 and 8 mm lateral right lower lobe noncalcified pulmonary nodules, small irregular 6 mm peripheral right upper lobe pulmonary nodule versus focal postinflammatory scarring and small slightly irregular 6 mm posterior left lower lobe pulmonary nodule. A few small bilateral calcified granulomas and a couple tiny punctate subpleural nodules or noncalcified granulomas. Pleural spaces: No pleural effusion. No pneumothorax. Heart: Heart size is normal. Small pericardial effusion measuring up to 7 mm in thickness. Coronary arteries: Coronary artery calcifications. Lymph nodes: Mediastinal, right hilar and left axillary lymphadenopathy including 2.5 x 2.6 cm subcarinal lymph node, 2.3 x 2.2 cm right hilar lymph node and 2.5 x 3.0 cm left axillary lymph node. Diaphragm: Small hiatal hernia. Adrenal glands: Mild nonspecific bilateral adrenal thickening. Bones/joints: Thoracic spondylosis, degenerative bony changes and chronic T12 vertebral body compression deformity. Soft tissues: No significant soft tissue abnormalities. CT/CT angio chest PE protcl [id number] IMPRESSION: 1. No definite vascular intraluminal filling defects to suggest large or central acute pulmonary embolism. A small peripheral PE cannot be completely excluded. 2. Mild emphysema and bronchial thickening suggestive of bronchitis with right middle lobe atelectasis or scarring. 3. A couple small adjacent 7 and 8 mm lateral right lower lobe noncalcified pulmonary nodules, small irregular 6 mm peripheral right upper lobe pulmonary nodule versus focal postinflammatory scarring and small slightly irregular 6 mm posterior left lower lobe pulmonary nodule. Recommend follow-up chest CT and 6 to 12 months. 4. Mediastinal, right hilar and left axillary lymphadenopathy including 2.5 x 2.6 cm subcarinal lymph node, 2.3 x 2.2 cm right hilar lymph node and 2.5 x 3.0 cm left axillary lymph node. Differential diagnosis includes reactive lymph node hyperplasia, sarcoidosis/granulomatous diseases versus leukemia/lymphoma or metastatic disease. 5. Small pericardial effusion measuring up to 7 mm in thickness. 6. Atherosclerotic vascular disease including coronary artery disease. 7. Small hiatal hernia.
[2024-06-28 19:47] LABS: Troponin(5th) Baseline 27 ng/L (0-10)
[2024-06-28 19:48] LABS: Lactic Sepsis W/Reflex 0.8 mmol/L (0.5-2.2)
[2024-06-28 20:40] LABS: Procalcitonin 0.23 ng/mL (0-0.5); Thyroid Stimulating Hormone 2.86 uIU/mL (0.27-4.20)
[2024-06-28 20:51] LABS: Chol HDL Ratio 3.05 mg/dL (0.0-4.40); Cholesterol 232 mg/dL (0-200); HDL Cholesterol 76 mg/dL (60-100); LDL Cholesterol Calculated 144 mg/dL (50-129); LDL HDL Ratio 1.89 RATIO (0.00-3.22); Triglycerides 58 mg/dL (0-150)
[2024-06-28] MEDS: iohexol 350 mg/mL 500 mL Btl (per mL) IV (21:08)
[2024-06-28] MEDS: enoxaparin 40 mg/0.4 mL Syringe SUBCUT (21:32)
[2024-06-28] MEDS: quetiapine 25 mg Tablet PO (21:33)
[2024-06-28] MEDS: pantoprazole 40 mg SDV IVP (21:33)
[2024-06-28] MEDS: methylPREDNISolone sod succ 125 mg/2 mL INJ IVP (21:33)
[2024-06-28] MEDS: sodium chloride 0.9% 1,000 ML 125 ML IV (21:33)
[2024-06-28 21:43] LABS: Troponin 5 2HR 28.42 ng/L (0-10); Troponin 5 2HR Delta 1.42 ABS# (0-10)
[2024-06-28 23:49] LABS: Adenovirus Not Detected (NOT DETECT); Chlamydia Pneumoniae Not Detected (NOT DETECT); Coronavirus 229E,HKU1,NL63,OC4 Not Detected (NOT DETECT); Human Metapneumovirus Not Detected (NOT DETECT); Human Rhinovirus/Enterovirus Not Detected (NOT DETECT); Influenza A Not Detected (NOT DETECT); Influenza A H1 Not Detected (NOT DETECT); Influenza A H1-2009 Not Detected (NOT DETECT); Influenza A H3 Not Detected (NOT DETECT); Influenza B Not Detected (NOT DETECT); Mycoplasma Pneumoniae Not Detected (NOT DETECT); Parainfluenza Virus Type 1 Not Detected (NOT DETECT); Parainfluenza Virus Type 2 Not Detected (NOT DETECT); Parainfluenza Virus Type 3 Not Detected (NOT DETECT); Parainfluenza Virus Type 4 Not Detected (NOT DETECT); Respiratory Syncytial Virus A Not Detected (NOT DETECT); Respiratory Syncytial Virus B Not Detected (NOT DETECT); SARS-COV-2 Not Detected (NOT DETECT)
[2024-06-29] VITALS (13 sets, daily range): BP systolic 93–156; BP diastolic 50–75; PULSE 89–110; RESP 16–18; TEMP 36.6–37; O2SAT 90–98
[2024-06-29] MEDS: ipratropium-albuterol 3 mL Neb INHALATION ×6 (00:43→20:04)
--- NOTE | 2024-06-29 00:58 | ECG_ITS ---
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 Measurements Intervals [place] Rate: 94 P: 79 AK: 133 QRS: 90 QRSD: 87 T: 66 QT: 343 QTc: 430 Interpretive Statements SINUS RHYTHM Compared to ECG 06/28/2024 19:07:19 Sinus tachycardia no longer present ST (T wave) deviation no longer present Electronically Signed On 06-30-2024 9:04:38 CDT by Vivien Main M.D. [id number]
[2024-06-29 01:44] LABS: Basophils % 0.1 %; Hematocrit 45.5 % (36-47); Lymphocytes # 0.6 10^3/uL (0.8-4.8); Lymphocytes % 8.1 %; Mean Corpuscular Hemoglobin 29.2 pg (27-33); Mean Corpuscular Volume 88.5 fl (85-98); Mean Platelet Volume 9.9 fL (7.4-10.4); Monocytes % 0.6 %; Neutrophils # 6.37 10^3/uL (1.8-7.7); Neutrophils % 90.8 %; Nucleated Red Blood Cells % 0 %; Platelet Count 200 10^3/cmm (157-399); Red Blood Count 5.14 10^6/uL (3.85-5.65); Red Cell Distribution Width 12.8 % (12.1-15.1); White Blood Count 7.02 10^3/uL (3.29-11.43)
[2024-06-29 01:59] LABS: Alanine Aminotransferase < 5 U/L (0-33); Albumin Level 3.9 g/dL (3.5-5.2); Alkaline Phosphatase 69 U/L (35-105); Anion Gap 15.9 (5-19); Aspartate Amino Transferase 14 U/L (0-32); Blood Urea Nitrogen 16 mg/dL (8-23); Calcium 8.8 mg/dL (8.5-10.5); Carbon Dioxide 24 mmol/L (22-29); Chloride 98 mmol/L (98-107); Creatinine Clr Calc Pharmacy 55.4108; Globulin 2.8 g/dL (1.3-4.6); Glucose 119 mg/dL (65-115); Magnesium 1.8 mg/dL (1.7-2.3); Osmolality Calculated 280 mOsm/kg (285-295); Phosphorus 3.7 mg/dL (2.5-4.5); Potassium 3.9 mmol/L (3.5-5.1); Sodium 134 mmol/L (136-145); Total Bilirubin 0.6 mg/dL (0.15-1.2); Total Protein 6.7 g/dL (6.6-8.7)
[2024-06-29 02:01] LABS: Troponin 5 6HR 30.68 ng/L (0-10); Troponin 5 6HR Delta 3.68 ng/L (0-12)
[2024-06-29 02:11] LABS: NT Pro B Type Natriuretic Pept 622 pg/mL (0-450)
[2024-06-29] MEDS: sodium chloride 0.9% 1,000 ML 125 ML IV ×3 (03:36→22:30)
[2024-06-29] MEDS: methylPREDNISolone sod succ 40 mg/mL INJ IVP ×3 (06:36→22:31)
[2024-06-29] MEDS: FUROsemide 40 mg Tablet PO (06:36)
[2024-06-29] MEDS: budesonide 0.5 mg/2 mL Neb INHALATION ×2 (07:31→20:04)
--- NOTE | 2024-06-29 07:56 | CT_ITS ---
WS: [id number] CT ABDOMEN PELVIS TECHNIQUE: Noncontrast CT of the abdomen and pelvis with coronal and sagittal reformatted images. CLINICAL INFORMATION: left axillary lymphadenopthy, hilar adenoapthy, COMPARISON: None. DLP: 472.[address] scans at [facility] use at least one of these dose optimization techniques: automated e xposure control; mA and/or kV adjustment per patient size (includes targeted exams where dose is matc hed to clinical indication); or iterative reconstruction. FINDINGS: Slight pleural thickening RIGHT lower lobe with subsegmental atelectasis. LEFT lung base is well aera avni. Noncontrast liver appears normal. Vicarious excretion of contrast in the gallbladder. Food produ cts in the stomach. Adrenal glands are normal. Normal noncontrast spleen. Splenic artery calcificatio n. Noncontrast pancreas appears normal. Dense vascular calcification. Tortuous abdominal aorta. No si gnificant aneurysm. Densely calcified common iliac arteries with stenosis. LEFT JOSE degrades images in the pelvis. Small RIGHT renal cysts. No periaortic or retroperitoneal lym phadenopathy. Normal sigmoid colon. No evidence of small or large bowel obstruction. Moderate spondyl itic changes lumbar spine. Chronic appearing anterior wedging at T12. No hydronephrosis in either kid mukesh. Noncontrast kidneys appear normal. Small esophageal hiatal hernia. CT/CT abdomen pelvis wo con [id number] IMPRESSION: 1. No acute findings on this noncontrast examination. 2. No abdominal or pelvic lymphadenopathy.
[2024-06-29 08:30] LABS: Erythrocyte Sedimentation Rate 17 mm/hr (0-15)
[2024-06-29 08:33] LABS: Lactate Dehydrogenase 158 U/L (135-214)
--- NOTE | 2024-06-29 08:59 | PC.CHAP ---
Pastoral Care Encounter/Spiritual Assessment Type of Contact [] Declined scrap carrier visit [] Patient/Family/Request visit [] Outpatient visit [] Follow-up visit [] Physician referral [] Code/Alert [] Routine visit [] Staff referral [] Actively dying [] Patient sleeping [] Family support [] [] Out of room [] Palliative care [] [x] Receiving care in room [] Pre-surgical visit [] Trauma [] Long length of stay [] ICU visit [] Other: Relational/Emotional Strength [] Patient feels connected with others/family/visitors/staff [] Distress [] Loneliness/isolation [] Abandonment Spirituality of Patient [] Person of Mame [] Attends Catholic of their Mame [] Believes in Prayer [] Reads Bible or Sabianism materials [] There are Spiritual issues to be addressed Shallot Packer Interventions [] Prayer [] Active listening [] Non-anxious presence [] Spiritual/emotional support [] Crisis/trauma care [] Spiritual counseling [] Bereavement support [] Provided bereavement packet [] Provided Bible/devotional materials [] Provided toy/stuffed animal, coloring book to patient or family member [] Provided Communion [] Anointing/[employer] [] Salvation [] Completed spiritual assessment [] Other: Impact on Illness or Injury [] Angry [] Fearful [] Anxious [] Often cries [] Exhaustion [] Unable to work [] Unable to attend taoist [] Unable to walk/stand [] Unable to read [] Unable to drive [] Unable to eat/drink [] Unable to sleep [] Unable to be with family [] Patient intubated [] Other: Summary Time spent with patient
[2024-06-29] MEDS: magnesium oxide 400 mg tablet PO ×2 (09:35→18:20)
[2024-06-29] MEDS: NIFEdipine ER (24 hr) 30 mg Tablet 60 MG PO (09:35)
[2024-06-29] MEDS: atorvastatin 40 mg Tablet 80 MG PO (09:35)
[2024-06-29] MEDS: cilostazol 100 mg Tablet PO ×2 (09:36→18:20)
[2024-06-29] MEDS: cholecalciferol (vitamin D3) 5,000 unit Tablet 5000 UNIT PO ×2 (09:36→18:20)
[2024-06-29] MEDS: losartan 50 mg Tablet 100 MG PO (09:36)
[2024-06-29] MEDS: sertraline 50 mg Tablet PO (09:36)
[2024-06-29] MEDS: sucralfate 1 gm/10 mL Oral Liq UDC PO ×2 (09:37→18:20)
--- NOTE | 2024-06-29 13:13 | P.PN_ITS ---
Subjective 2 Subjective: patient was seen this morning, does report a cough and shortness of breath, no fever, no chills Vitals/I&O/Wt Last Vital Signs Temp 98.4 F 06/29/24 12:19 Pulse 92 06/29/24 12:54 Resp 16 06/29/24 12:54 BP 110/55 06/29/24 12:19 Pulse Ox 93 06/29/24 12:54 O2 Del Method Nasal Cannula 06/29/24 12:54 O2 Flow Rate 2 06/29/24 12:54 06/28/24 06/29/24 06/29/24 22:59 06:59 14:59 Intake Total 390 / 390 1256.25 / 1646.25 1190 / 1190 Balance 390 / 390 1256.25 / 1646.25 1190 / 1190 Weight last 48 hrs Weight 65.907 kg Weight 65.907 kg Weight 70.307 kg Physical Exam 2 Const: COMMON NORMALS: no acute distress and patient oriented x3 Resp: COMMON NORMALS: normal respiratory effort, No retractions, No use of accessory muscles and clear to auscultation bilaterally AUSCULTATION: clear to auscultation bilaterally Cardio: COMMON NORMALS: regular rate, regular rhythm, S1 normal heart sound present and S2 normal heart sound present RATE: regular rate RHYTHM: r egular rhythm HEART SOUNDS: S1 normal heart sound present and S2 normal heart sound present GI: COMMON NORMALS: Normal to inspection, nondistended, normoactive bowel sounds present and non-tender Extremity: COMMON NORMALS: no pedal edema Neuro: COMMON NORMALS: patient oriented x3 Psych: COMMON NORMALS: mental status grossly normal Data 06/29/24 01:28 06/29/24 01:28 Micro: Microbiology 06/28/24 17:22 Blood Culture - Preliminary Blood SPECIMEN COLLECTED 06/28/24 17:22 Blood Culture - Preliminary Blood SPECIMEN COLLECTED A&P Assessment and plan (1) Acute respiratory failure with hypoxia: (2) Pneumonia: (3) Dizziness: (4) Dehydration: (5) COPD exacerbation: (6) Intracranial mass: Plan Intracranial mass CT brain Brain: There is a 9 mm enhancing mass adjacent to the falx in the high right frontal region (4-37). There is no associated edema and this may represent a meningioma but it is not calcified. Consider MR to evaluate for additional lesions and to further characterize this lesion. -Is not exactly clear if this is playing a role to her dizziness -Will consider MRI based on clinical progress versus outpatient Acute hypoxic respiratory failure -Secondary to COPD exacerbation Secondary to pneumonia CT/CT angio chest PE protcl [id number] IMPRESSION: 1. No definite vascular intraluminal filling defects to suggest large or central acute pulmonary embolism. A small peripheral PE cannot be completely excluded. 2. Mild emphysema and bronchial thickening suggestive of bronchitis with right middle lobe atelectasis or scarring. 3. A couple small adjacent 7 and 8 mm lateral right lower lobe noncalcified pulmonary nodules, small irregular 6 mm peripheral right upper lobe pulmonary nodule versus focal postinflammatory scarring and small slightly irregular 6 mm posterior left lower lobe pulmonary nodule. Recommend follow-up chest CT and 6 to 12 months. 4. Mediastinal, right hilar and left axillary lymphadenopathy including 2.5 x 2.6 cm subcarinal lymph node, 2.3 x 2.2 cm right hilar lymph node and 2.5 x 3.0 cm left axillary lymph node. Differential diagnosis includes reactive lymph node hyperplasia, sarcoidosis/granulomatous diseases versus leukemia/lymphoma or metastatic disease. 5. Small pericardial effusion measuring up to 7 mm in thickness. 6. Atherosclerotic vascular disease including coronary artery disease. 7. Small hiatal hernia. ? Plan ? Continue Levaquin ? DuoNeb ? Budesonide ? Monitor respiratory status closely -Respiratory viral panel -Full code ? Lovenox for DVT prophylaxis Mediastinal, right hilar and left axillary lymphadenopathy including 2.5 x 2.6 cm subcarinal lymph node, 2.3 x 2.2 cm right hilar lymph node and 2.5 x 3.0 cm left axillary lymph node -ct abdomen and pelvis -LDH -leukemia panel -lymphoma panel COPD exacerbation as above Pneumonia, blood cultures, as above Dizziness ? Does have a history of peripheral vascular disease ? Will order a carotid ultrasound ? Does have a murmur on exam had a cardiac echo in 2022 CONCLUSIONS Normal left ventricular size and systolic function, EF 75 %. Mild left ventricular hypertrophy. Grade I/IV diastolic dysfunction (abnormal relaxation filling pattern), normal to mildly elevated filling pressures. Moderate mitral annular calcification. Thickened aortic valve with features of aortic valve sclerosis. Trace tricuspid valve regurgitation. Estimated pulmonary artery peak systolic pressure within normal limits There is no pericardial effusion. There are no intracardiac masses. -Will consider repeating cardiac echo based on clinical progress -Will consider orthostatic vitals based on clinical progress -IV fluids Fluids Chest discomfort ? Atypical ? Serial EKGs, serial troponins, telemetry monitoring Attestations 2 Medical Necessity Statement*: patient requires hospitalization for COPD and PNA Diagnoses Acute respiratory failure with hypoxia J96.01 Pneumonia J18.9 Dizziness R42 Dehydration E86.0 COPD exacerbation J44.1 Intracranial mass R90.0
[2024-06-29] MEDS: levofloxacin-dextrose 5 % 750 MG/150 ML PREMIX 100 MG IV (18:20)
[2024-06-29] MEDS: pantoprazole 40 mg SDV IVP (22:31)
[2024-06-29] MEDS: enoxaparin 40 mg/0.4 mL Syringe SUBCUT (22:31)
[2024-06-29] MEDS: quetiapine 25 mg Tablet PO (22:31)
[2024-06-30] VITALS (15 sets, daily range): BP systolic 102–122; BP diastolic 40–78; PULSE 65–118; RESP 16–20; TEMP 36.6–36.9; O2SAT 90–95
[2024-06-30] MEDS: ipratropium-albuterol 3 mL Neb INHALATION ×6 (00:24→20:58)
[2024-06-30 04:19] LABS: Basophils % 0.1 %; Hematocrit 39.8 % (36-47); Lymphocytes # 0.4 10^3/uL (0.8-4.8); Lymphocytes % 4.6 %; Mean Corpuscular HGB Conc 32.9 g/dL (30-55); Mean Corpuscular Hemoglobin 29.4 pg (27-33); Mean Corpuscular Volume 89.4 fl (85-98); Mean Platelet Volume 10.3 fL (7.4-10.4); Monocytes # 0.1 10^3/uL (0.2-0.9); Monocytes % 1.3 %; Neutrophils # 8.38 10^3/uL (1.8-7.7); Neutrophils % 93.6 %; Nucleated Red Blood Cells % 0 %; Platelet Count 183 10^3/cmm (157-399); Red Blood Count 4.45 10^6/uL (3.85-5.65); Red Cell Distribution Width 13.2 % (12.1-15.1); White Blood Count 8.96 10^3/uL (3.29-11.43)
[2024-06-30 04:40] LABS: Alanine Aminotransferase < 5 U/L (0-33); Albumin Level 3.6 g/dL (3.5-5.2); Alkaline Phosphatase 53 U/L (35-105); Anion Gap 14.2 (5-19); Aspartate Amino Transferase 13 U/L (0-32); Blood Urea Nitrogen 27 mg/dL (8-23); Calcium 8.5 mg/dL (8.5-10.5); Carbon Dioxide 24 mmol/L (22-29); Chloride 102 mmol/L (98-107); Globulin 2.2 g/dL (1.3-4.6); Glucose 128 mg/dL (65-115); Magnesium 1.9 mg/dL (1.7-2.3); Osmolality Calculated 291 mOsm/kg (285-295); Phosphorus 3.1 mg/dL (2.5-4.5); Potassium 3.2 mmol/L (3.5-5.1); Sodium 137 mmol/L (136-145); Total Bilirubin 0.3 mg/dL (0.15-1.2); Total Protein 5.8 g/dL (6.6-8.7)
[2024-06-30] MEDS: methylPREDNISolone sod succ 40 mg/mL INJ IVP ×3 (06:16→21:52)
[2024-06-30] MEDS: sodium chloride 0.9% 1,000 ML 125 ML IV (06:16)
[2024-06-30] MEDS: FUROsemide 40 mg Tablet PO (06:16)
[2024-06-30] MEDS: budesonide 0.5 mg/2 mL Neb INHALATION ×2 (07:50→20:58)
[2024-06-30] MEDS: magnesium oxide 400 mg tablet PO ×2 (08:43→16:48)
[2024-06-30] MEDS: atorvastatin 40 mg Tablet 80 MG PO (08:43)
[2024-06-30] MEDS: cholecalciferol (vitamin D3) 5,000 unit Tablet 5000 UNIT PO ×2 (08:43→16:48)
[2024-06-30] MEDS: NIFEdipine ER (24 hr) 30 mg Tablet 60 MG PO (08:43)
[2024-06-30] MEDS: sucralfate 1 gm/10 mL Oral Liq UDC PO ×2 (08:43→16:47)
[2024-06-30] MEDS: sertraline 50 mg Tablet PO (08:43)
[2024-06-30] MEDS: losartan 50 mg Tablet 100 MG PO (08:43)
[2024-06-30] MEDS: cilostazol 100 mg Tablet PO ×2 (08:43→16:47)
[2024-06-30] MEDS: potassium chloride ER 20 mEq Tablet 40 MEQ PO (08:47)
--- NOTE | 2024-06-30 12:48 | P.PN_ITS ---
Subjective 2 Subjective: Patient was seen this morning, she denies any fevers, no chills, no nausea, no vomiting, does report shortness of breath, shortness of breath with exertion, does have a cough, we discussed her CT scan findings, she denies any breast lumps or bumps, no nipple discharge, Vitals/I&O/Wt Last Vital Signs Temp 98.0 F 06/30/24 12:00 Pulse 65 06/30/24 12:02 Resp 20 H 06/30/24 12:00 BP 115/63 06/30/24 12:02 Pulse Ox 93 06/30/24 12:00 O2 Del Method Nasal Cannula 06/30/24 12:00 O2 Flow Rate 1 06/30/24 10:59 06/29/24 06/30/24 06/30/24 22:59 06:59 14:59 Intake Total 1100 / 2290 1120.833 / 3410.833 360 / 360 Balance 1100 / 2290 1120.833 / 3410.833 360 / 360 Weight last 48 hrs Weight 65.907 kg Weight 65.907 kg Weight 65.907 kg Weight 70.307 kg Physical Exam 2 Const: COMMON NORMALS: no acute distress and patient oriented x3 Resp: COMMON NORMALS: normal respiratory effort, No retractions and No use of accessory muscles AUSCULTATION: wheezes Cardio: COMMON NORMALS: regular rate, regular rhythm, S1 normal heart sound present and S2 normal heart sound present RATE: regular rate RHYTHM: r egular rhythm HEART SOUNDS: S1 normal heart sound present and S2 normal heart sound present GI: COMMON NORMALS: Normal to inspection, nondistended, normoactive bowel sounds present and non-tender Extremity: COMMON NORMALS: no pedal edema Neuro: COMMON NORMALS: patient oriented x3 Psych: COMMON NORMALS: mental status grossly normal Skin: NARRATIVE SKIN EXAM: 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, breast exam, left breast, surgical scar from prior prior biopsy site, at 6 o'clock position, does have axillar lymphadenopathy Right breast, breast exam, no significant axillary lymphadenopathy, no palpable lesions Data 06/30/24 03:57 06/30/24 03:57 Micro: Microbiology 06/28/24 16:44 Urine Culture - Preliminary Urine,Clean Catch 06/28/24 17:22 Blood Culture - Preliminary Blood NEGATIVE TO DATE 06/28/24 17:22 Blood Culture - Preliminary Blood Staphylococcus epidermidis A&P Assessment and plan (1) Acute respiratory failure with hypoxia: (2) Pneumonia: (3) Dizziness: (4) Dehydration: (5) COPD exacerbation: (6) Intracranial mass: Plan Intracranial mass CT brain Brain: There is a 9 mm enhancing mass adjacent to the falx in the high right frontal region (4-37). There is no associated edema and this may represent a meningioma but it is not calcified. Consider MR to evaluate for additional lesions and to further characterize this lesion. -Is not exactly clear if this is playing a role to her dizziness -Will consider MRI based on clinical progress versus outpatient Acute hypoxic respiratory failure -Secondary to COPD exacerbation Secondary to pneumonia CT/CT angio chest PE protcl [id number] IMPRESSION: 1. No definite vascular intraluminal filling defects to suggest large or central acute pulmonary embolism. A small peripheral PE cannot be completely excluded. 2. Mild emphysema and bronchial thickening suggestive of bronchitis with right middle lobe atelectasis or scarring. 3. A couple small adjacent 7 and 8 mm lateral right lower lobe noncalcified pulmonary nodules, small irregular 6 mm peripheral right upper lobe pulmonary nodule versus focal postinflammatory scarring and small slightly irregular 6 mm posterior left lower lobe pulmonary nodule. Recommend follow-up chest CT and 6 to 12 months. 4. Mediastinal, right hilar and left axillary lymphadenopathy including 2.5 x 2.6 cm subcarinal lymph node, 2.3 x 2.2 cm right hilar lymph node and 2.5 x 3.0 cm left axillary lymph node. Differential diagnosis includes reactive lymph node hyperplasia, sarcoidosis/granulomatous diseases versus leukemia/lymphoma or metastatic disease. 5. Small pericardial effusion measuring up to 7 mm in thickness. 6. Atherosclerotic vascular disease including coronary artery disease. 7. Small hiatal hernia. ? Plan ? Continue Levaquin ? DuoNeb ? Budesonide ? Monitor respiratory status closely -Respiratory viral panel -Full code ? Lovenox for DVT prophylaxis Mediastinal, right hilar and left axillary lymphadenopathy including 2.5 x 2.6 cm subcarinal lymph node, 2.3 x 2.2 cm right hilar lymph node and 2.5 x 3.0 cm left axillary lymph node -ct abdomen and pelvis no acute findings -LDH within normal limits -leukemia panel -lymphoma panel -Patient needs to have a mammography bilateral breast COPD exacerbation as above Pneumonia, blood cultures, as above Dizziness ? Does have a history of peripheral vascular disease ? Will order a carotid ultrasound ? Does have a murmur on exam had a cardiac echo in 2022 CONCLUSIONS Normal left ventricular size and systolic function, EF 75 %. Mild left ventricular hypertrophy. Grade I/IV diastolic dysfunction (abnormal relaxation filling pattern), normal to mildly elevated filling pressures. Moderate mitral annular calcification. Thickened aortic valve with features of aortic valve sclerosis. Trace tricuspid valve regurgitation. Estimated pulmonary artery peak systolic pressure within normal limits There is no pericardial effusion. There are no intracardiac masses. -Will consider repeating cardiac echo based on clinical progress -Will consider orthostatic vitals based on clinical progress -IV fluids Fluids Chest discomfort ? Atypical ? Serial EKGs, serial troponins, telemetry monitoring Patient requires hospitalization for COPD exacerbation, pneumonia, continue IV antibiotics, continue steroids, PT OT, Attestations 2 Medical Necessity Statement*: Patient requires hospitalization for COPD exacerbation, pneumonia, Diagnoses Acute respiratory failure with hypoxia J96.01 Pneumonia J18.9 Dizziness R42 Dehydration E86.0 COPD exacerbation J44.1 Intracranial mass R90.0
[2024-06-30] MEDS: pantoprazole 40 mg SDV IVP (16:47)
[2024-06-30] MEDS: enoxaparin 40 mg/0.4 mL Syringe SUBCUT (19:50)
[2024-06-30] MEDS: quetiapine 25 mg Tablet PO (21:47)
[2024-07-01] VITALS (12 sets, daily range): BP systolic 101–134; BP diastolic 49–80; PULSE 55–108; RESP 16–20; TEMP 36.7–37.1; O2SAT 89–97
[2024-07-01] MEDS: ipratropium-albuterol 3 mL Neb INHALATION ×4 (00:16→11:12)
[2024-07-01 04:52] LABS: Hematocrit 42.1 % (36-47); Lymphocytes # 0.5 10^3/uL (0.8-4.8); Lymphocytes % 5.7 %; Mean Corpuscular HGB Conc 32.3 g/dL (30-55); Mean Corpuscular Hemoglobin 29.8 pg (27-33); Mean Corpuscular Volume 92.1 fl (85-98); Mean Platelet Volume 12.1 fL (7.4-10.4); Monocytes # 0.1 10^3/uL (0.2-0.9); Monocytes % 1.6 %; Neutrophils # 8.27 10^3/uL (1.8-7.7); Neutrophils % 92.3 %; Nucleated Red Blood Cells % 0 %; Platelet Count 142 10^3/cmm (157-399); Red Blood Count 4.57 10^6/uL (3.85-5.65); Red Cell Distribution Width 13.9 % (12.1-15.1); White Blood Count 8.96 10^3/uL (3.29-11.43)
[2024-07-01 05:15] LABS: Alanine Aminotransferase < 5 U/L (0-33); Albumin Level 3.8 g/dL (3.5-5.2); Alkaline Phosphatase 56 U/L (35-105); Anion Gap 14.9 (5-19); Aspartate Amino Transferase 16 U/L (0-32); Blood Urea Nitrogen 31 mg/dL (8-23); Calcium 9.3 mg/dL (8.5-10.5); Carbon Dioxide 24 mmol/L (22-29); Chloride 107 mmol/L (98-107); Creatinine Clr Calc Pharmacy 55.4108; Globulin 2.5 g/dL (1.3-4.6); Glucose 140 mg/dL (65-115); Magnesium 2.3 mg/dL (1.7-2.3); Osmolality Calculated 303 mOsm/kg (285-295); Phosphorus 2.8 mg/dL (2.5-4.5); Potassium 3.9 mmol/L (3.5-5.1); Sodium 142 mmol/L (136-145); Total Bilirubin 0.2 mg/dL (0.15-1.2); Total Protein 6.3 g/dL (6.6-8.7)
[2024-07-01] MEDS: methylPREDNISolone sod succ 40 mg/mL INJ IVP (06:10)
[2024-07-01] MEDS: FUROsemide 40 mg Tablet PO (06:10)
[2024-07-01 07:50] LABS: Leukemia Profile (BBPL) See Report
[2024-07-01] MEDS: budesonide 0.5 mg/2 mL Neb INHALATION (07:50)
[2024-07-01] MEDS: magnesium oxide 400 mg tablet PO (08:25)
[2024-07-01] MEDS: sucralfate 1 gm/10 mL Oral Liq UDC PO (08:25)
[2024-07-01] MEDS: NIFEdipine ER (24 hr) 30 mg Tablet 60 MG PO (08:25)
[2024-07-01] MEDS: cholecalciferol (vitamin D3) 5,000 unit Tablet 5000 UNIT PO (08:26)
[2024-07-01] MEDS: losartan 50 mg Tablet 100 MG PO (08:26)
[2024-07-01] MEDS: cilostazol 100 mg Tablet PO (08:26)
[2024-07-01] MEDS: sertraline 50 mg Tablet PO (08:26)
[2024-07-01] MEDS: atorvastatin 40 mg Tablet 80 MG PO (08:26)
--- NOTE | 2024-07-01 10:57 | PM.DCS ---
Discharge Providers Date of Admission: 06/28/24 18:30 Date of Discharge: July 01, 2024 Attending Provider at Admission: Yevgeniy Prater MD Attending Provider at Discharge: Yevgeniy Prater MD Primary Care Provider: SULEMAN Dawkins Diagnoses at Discharge Discharge Diagnosis (1) Acute respiratory failure with hypoxia: Status: Acute (2) Pneumonia: Status: Acute (3) Dizziness: Status: Acute (4) Dehydration: Status: Acute (5) COPD exacerbation: Status: Acute (6) Intracranial mass: Status: Acute Reason for Visit Reason for Visit: SOB Hospital Course Hospital Course Heather Ramesh is a 78 year old female with a past medical history of COPD, history of smoking, hypertension, history of hypertension, peripheral vascular disease, who presents [facility] due to weakness, fatigue, dizziness, shortness of breath, cough for the last week and a half. According to patient, for the last week and a half, she has been feeling unwell, fatigue, malaise, shortness of breath, cough, shortness of breath with exertion, intermittent chest discomfort. She also reports dizziness, dizziness upon standing, no facial droop, no slurring of her words, no focal weakness, no focal paresthesias,. Denies any sick contacts, recent travel. In the emergency room she was hypoxic on 2 L does not use oxygen at home Patient was admitted to [facility] for acute hypoxic respiratory failure secondary to COPD, pneumonia, patient received broad-spectrum antibiotic therapy, steroid therapy, fluids, clinically monitored, overall clinically improved. Patient was advised to abstain from smoking on discharge, morbidity and mortality discussed, she voiced understanding, all questions answered. Will be discharged on the present burst, [facility] for 5 remaining days, follow-up with primary care provider as outpatient Intracranial mass CT brain Brain: There is a 9 mm enhancing mass adjacent to the falx in the high right frontal region (4-37). There is no associated edema and this may represent a meningioma but it is not calcified. Consider MR to evaluate for additional lesions and to further characterize this lesion. -Is not exactly clear if this is playing a role to her dizziness -Will have her follow-up with Dr. Yoon as outpatient, decision about MRI, and further workup During hospitalization CT imaging showed 3. A couple small adjacent 7 and 8 mm lateral right lower lobe noncalcified pulmonary nodules, small irregular 6 mm peripheral right upper lobe pulmonary nodule versus focal postinflammatory scarring and small slightly irregular 6 mm posterior left lower lobe pulmonary nodule. Recommend follow-up chest CT and 6 to 12 months. 4. Mediastinal, right hilar and left axillary lymphadenopathy including 2.5 x 2.6 cm subcarinal lymph node, 2.3 x 2.2 cm right hilar lymph node and 2.5 x 3.0 cm left axillary lymph node. Differential diagnosis includes reactive lymph node hyperplasia, sarcoidosis/granulomatous diseases versus leukemia/lymphoma or metastatic disease. -She denies a history of breast mass, breast lesions, nipple discharge ? Will have her follow-up with pulmonary as outpatient for pulmonary nodules, mediastinal lymph nodes consideration of bronchoscopy -Lymphoma leukemia panel ordered, follow-up with Dr. Yoon, follow with Dr. Yoon for consideration of mammography bilateral breast, follow-up lymphoma, leukemia panel, consideration of PET scan Physical Exam Const: COMMON NORMALS: no acute distress and patient oriented x3 Resp: COMMON NORMALS: normal respiratory effort, No retractions, No use of accessory muscles and clear to auscultation bilaterally AUSCULTATION: clear to auscultation bilaterally Cardio: COMMON NORMALS: regular rate, regular rhythm, S1 normal heart sound present and S2 normal heart sound present RATE: regular rate RHYTHM: regular rhythm HEART SOUNDS: S1 normal heart sound present and S2 normal heart sound present GI: COMMON NORMALS: Normal to inspection, nondistended, normoactive bowel sounds present and non-tender Extremity: COMMON NORMALS: no pedal edema Neuro: COMMON NORMALS: patient oriented x3 Psych: COMMON NORMALS: mental status grossly normal Discharge Data Studies Completed and Pending Completed Studies During Hospitalization Category Date Time Status CT abdomen pelvis wo con [id number] Routine Cat Scan 06/29/24 07:[address] angio chest PE protcl [id number] Routine Cat Scan 06/28/24 19:[address] head wo con* [id number] Stat Cat Scan 06/28/24 15:21 Completed XR chest 1V portable [id number] Stat Exams 06/28/24 14:15 Completed CV carotid duplex BI* [id number] Routine Ultrasound 06/28/24 19:27 Completed Pending at discharge Category Date Time Status Blood Culture Stat Lab 06/28/24 17:22 Results Radiology Impressions Chest X-Ray 06/28/24 14:15 IMPRESSION: 1. Infiltrate and atelectasis in the RIGHT middle lobe suggesting pneumonia. 2. Pulmonary hyperinflation. Head CT 06/28/24 15:21 IMPRESSION: Small parasagittal right frontal mass. Chest CTA 06/28/24 19:27 IMPRESSION: 1. No definite vascular intraluminal filling defects to suggest large or central acute pulmonary embolism. A small peripheral PE cannot be completely excluded. 2. Mild emphysema and bronchial thickening suggestive of bronchitis with right middle lobe atelectasis or scarring. 3. A couple small adjacent 7 and 8 mm lateral right lower lobe noncalcified pulmonary nodules, small irregular 6 mm peripheral right upper lobe pulmonary nodule versus focal postinflammatory scarring and small slightly irregular 6 mm posterior left lower lobe pulmonary nodule. Recommend follow-up chest CT and 6 to 12 months. 4. Mediastinal, right hilar and left axillary lymphadenopathy including 2.5 x 2.6 cm subcarinal lymph node, 2.3 x 2.2 cm right hilar lymph node and 2.5 x 3.0 cm left axillary lymph node. Differential diagnosis includes reactive lymph node hyperplasia, sarcoidosis/granulomatous diseases versus leukemia/lymphoma or metastatic disease. 5. Small pericardial effusion measuring up to 7 mm in thickness. 6. Atherosclerotic vascular disease including coronary artery disease. 7. Small hiatal hernia. Abdomen/Pelvis CT 06/29/24 07:56 IMPRESSION: 1. No acute findings on this noncontrast examination. 2. No abdominal or pelvic lymphadenopathy. Laboratory Results WBC 8.96 10^3/uL (3.29-11.43) 07/01/24 04:29 RBC 4.57 10^6/uL (3.85-5.65) 07/01/24 04:29 Hgb 13.60 g/dL (11.27-16.99) 07/01/24 04:29 Hct 42.1 % (36-47) 07/01/24 04:29 MCV 92.1 fl (85-98) 07/01/24 04:29 MCH 29.8 pg (27-33) 07/01/24 04:29 MCHC 32.3 g/dL (30-55) 07/01/24 04:29 RDW 13.9 % (12.1-15.1) 07/01/24 04:29 Plt Count 142 10^3/cmm (157-399) L 07/01/24 04:29 MPV 12.1 fL (7.4-10.4) H 07/01/24 04:29 Neut % (Auto) 92.3 % 07/01/24 04:29 Lymph % (Auto) 5.7 % 07/01/24 04:29 [place] % (Auto) 1.6 % 07/01/24 04:29 Eos % (Auto) 0.0 % 07/01/24 04:29 Baso % (Auto) 0.0 % 07/01/24 04:29 Neut # (Auto) 8.27 10^3/uL (1.8-7.7) H 07/01/24 04:29 Lymph # (Auto) 0.5 10^3/uL (0.8-4.8) L 07/01/24 04:29 [place] # (Auto) 0.1 10^3/uL (0.2-0.9) L 07/01/24 04:29 Eos # (Auto) 0.0 10^3/uL (0.0-0.8) 07/01/24 04: Baso # (Auto) 0.0 10^3/uL (0.0-0.1) 07/01/24 04:29 Nucleated RBC % (auto) 0 % 07/01/24 04: Nucleated RBCs # 0.0 /100WBC 07/01/24 04:29 ESR 17 mm/hr (0-15) H 06/29/24 01:28 Sodium 142 mmol/L (136-145) 07/01/24 04:29 Potassium 3.9 mmol/L (3.5-5.1) 07/01/24 04:29 Chloride 107 mmol/L (98-107) 07/01/24 04:29 Carbon Dioxide 24 mmol/L (22-29) 07/01/24 04:29 Anion Gap 14.9 (5-19) 07/01/24 04:29 BUN 31 mg/dL (8-23) H 07/01/24 04:29 Creatinine 0.8 mg/dL (0.5-0.9) 07/01/24 04:29 GFR Calculation Not Reportable 07/01/24 04:29 Glucose 140 mg/dL (65-115) H 07/01/24 04:29 Calculated Osmolality 303 mOsm/kg (285-295) H 07/01/24 04:29 Lactic Acid 0.8 mmol/L (0.5-2.2) 06/28/24 19:23 Calcium 9.3 mg/dL (8.5-10.5) 07/01/24 04:29 Phosphorus 2.8 mg/dL (2.5-4.5) 07/01/24 04:29 Magnesium 2.3 mg/dL (1.7-2.3) 07/01/24 04:29 Total Bilirubin 0.2 mg/dL (0.15-1.2) 07/01/24 04:29 AST 16 U/L (0-32) 07/01/24 04:29 ALT < 5 U/L (0-33) 07/01/24 04:29 Alkaline Phosphatase 56 U/L (35-105) 07/01/24 04:29 Lactate Dehydrogenase 158 U/L (135-214) 06/29/24 01:28 Troponin T Baseline 27 ng/L (0-10) H 06/28/24 19:23 Troponin T 120 Minute 28.42 ng/L (0-10) H 06/28/24 21:11 Delta Troponin T 1.42 ABS# (0-10) 06/28/24 21:11 Troponin T Hi Sens 6Hr 30.68 ng/L (0-10) H 06/29/24 01:28 Troponin T Hi Sens 6Hr Delta 3.68 ng/L (0-12) 06/29/24 01:28 C-Reactive Protein 3.0 mg/L (0.0-4.9) 06/28/24 17:23 NT-Pro-B Natriuret Pep 622 pg/mL (0-450) H 06/29/24 01:28 Total Protein 6.3 g/dL (6.6-8.7) L 07/01/24 04:29 Albumin 3.8 g/dL (3.5-5.2) 07/01/24 04:29 Globulin 2.5 g/dL (1.3-4.6) 07/01/24 04:29 Triglycerides 58 mg/dL (0-150) 06/28/24 17:23 Cholesterol 232 mg/dL (0-200) H 06/28/24 17:23 LDL Cholesterol, Calc 144 mg/dL (50-129) H 06/28/24 17:23 HDL Cholesterol 76 mg/dL (60-100) 06/28/24 17:23 LDL/HDL Ratio 1.89 RATIO (0.00-3.22) 06/28/24 17:23 Cholesterol/HDL Ratio 3.05 mg/dL (0.0-4.40) 06/28/24 17:23 Lipase 20 U/L (13-60) 06/28/24 14:55 Procalcitonin 0.23 ng/mL (0-0.5) 06/28/24 17:23 TSH 2.86 uIU/mL (0.27-4.20) 06/28/24 17:23 Urine Color Dark yellow (Yellow) A 06/28/24 16:44 Urine Appearance Clear (CLEAR) 06/28/24 16:44 Urine pH 6.0 (5-7) 06/28/24 16:44 Ur Specific Snyder 1.025 (1.005-1.030) 06/28/24 16:44 Urine Protein 2+ (Negative) A 06/28/24 16:44 Urine Glucose (UA) Negative (Normal) 06/28/24 16:44 Urine Ketones 2+ (Negative) H 06/28/24 16:44 Urine Blood 2+ (Negative) A 06/28/24 16:44 Urine Nitrate Negative (Negative) 06/28/24 16:44 Urine Bilirubin Negative (Negative) 06/28/24 16:44 Urine Urobilinogen 1.0 mg/dL (Negative) 06/28/24 16:44 Ur Leukocyte Esterase Negative (Negative) 06/28/24 16:44 Urine RBC 21-50 /hpf (0-2) H 06/28/24 16:44 Urine WBC 0-5 /hpf (0-5) 06/28/24 16:44 Ur Squamous Epith Cells 11-20 /hpf (0-5) 06/28/24 16:44 Amorphous Sediment Not Reportable 06/28/24 16:44 Urine Bacteria 1+ /hpf (NONE) H 06/28/24 16:44 Hyaline Casts 2.46 /lpf 06/28/24 16:44 Lymphoma Panel Cancelled 06/29/24 01:28 Immunophenotype Interp See report 06/29/24 01:28 Adenovirus (PCR) Not detected (NOT DETECT) 06/28/24 21:50 C. pneumoniae DNA (PCR) Not detected (NOT DETECT) 06/28/24 21:50 Coronavirus 229E (PCR) Not detected (NOT DETECT) 06/28/24 21:50 Human Metapneumovir PCR Not detected (NOT DETECT) 06/28/24 21:50 Influenza A (H1) PCR Not detected (NOT DETECT) 06/28/24 21:50 Influ A (H1/09) PCR Not detected (NOT DETECT) 06/28/24 21:50 Influenza A (H3) PCR Not detected (NOT DETECT) 06/28/24 21:50 Influenza Type A (PCR) Not detected (NOT DETECT) 06/28/24 21:50 Influenza Type B (PCR) Not detected (NOT DETECT) 06/28/24 21:50 M. pneumoniae (PCR) Not detected (NOT DETECT) 06/28/24 21:50 Parainfluenza 1 (PCR) Not detected (NOT DETECT) 06/28/24 21:50 Parainfluenza 2 (PCR) Not detected (NOT DETECT) 06/28/24 21:50 Parainfluenza 3 (PCR) Not detected (NOT DETECT) 06/28/24 21:50 Parainfluenza 4 (PCR) Not detected (NOT DETECT) 06/28/24 21:50 RSV Type A (PCR) Not detected (NOT DETECT) 06/28/24 21:50 RSV Type B (PCR) Not detected (NOT DETECT) 06/28/24 21:50 Entero/Rhino (PCR) Not detected (NOT DETECT) 06/28/24 21:50 SARS-CoV-2 (PCR) Not detected (NOT DETECT) 06/28/24 21:50 Vitals Last Vital Signs Temp 98.3 F 07/01/24 08:00 Pulse 55 L 07/01/24 08:00 Resp 16 07/01/24 07:28 BP 130/57 07/01/24 08:00 Pulse Ox 91 07/01/24 08:00 O2 Del Method Nasal Cannula 07/01/24 07:28 O2 Flow Rate 2 07/01/24 07:28 Discharge Plan Discharge Patient Disposition: Home Condition: Stable Prescriptions: New losartan 50 mg Tablet 100 mg PO DAILY 30 Days Qty: 60 0RF levofloxacin 750 mg tablet 750 mg PO DAILY 5 Days Qty: 5 0RF prednisone 20 mg tablet 20 mg PO BID 5 Days Qty: 10 0RF Continued cholecalciferol (vitamin D3) 5,000 unit tablet,disintegrating 5,000 unit PO BID coenzyme Q10 [Co Q-10] 100 mg capsule 100 mg PO DAILY sucralfate [Carafate] 100 mg/mL suspension 10 ml PO BID Qty: 200 0RF cilostazol 100 mg tablet 100 mg PO BID Qty: 180 3RF nifedipine [Procardia XL] 60 mg tablet extended release 24hr 60 mg PO DAILY Qty: 30 2RF Hold Instructions: Swelling and stool problems albuterol sulfate 2.5 mg /3 mL (0.083 %) solution for nebulization 2.5 mg inhalation Q4H PRN (Reason: shortness of breath or wheezing) Qty: 180 2RF albuterol sulfate 90 mcg/actuation HFA aerosol inhaler 2 puff inhalation Q6H PRN (Reason: shortness of breath or wheezing) Qty: 8.5 2RF budesonide [Pulmicort] 0.5 mg/2 mL suspension for nebulization 0.5 mg INHALATION BID Qty: 60 2RF Breztri Aerosphere 160-9-4.8 mcg/actuation HFA aerosol inhaler 2 inh inhalation BID Qty: 10.7 2RF magnesium oxide 400 mg magnesium tablet 400 mg PO BID Qty: 60 2RF quetiapine [Seroquel] 50 mg tablet 25 mg PO .at bedtime Qty: 16 2RF rosuvastatin 20 mg tablet 20 mg PO DAILY Qty: 30 2RF furosemide [Lasix] 40 mg tablet 40 mg PO QAM Qty: 30 0RF Zoloft 50 mg tablet 50 mg PO DAILY Qty: 60 2RF (DME) Disposable nebulizer circuit with mask See Rx Instructions .ROUTE .MEDSUPPLY Qty: 1 2RF Rx Instructions: As directed clopidogrel 75 mg tablet 75 mg PO DAILY Discontinued valsartan 320 mg tablet 320 mg PO DAILY Qty: 30 2RF triamterene-hydrochlorothiazid 37.5-25 mg tablet 1 tab PO DAILY Discharge Orders: Discharge Order (Routine); Ordered 07/01/24 Ordered By: Yevgeniy Prater Referrals: Jeannie Aquino MD [Physician] - 1 week (mediastinal lymphadenoapthy, copd We have notified your physician's clinic of the need for a follow-up appointment to be scheduled. If you have not heard from them within the next 2 business days, please call them directly. ) Juliann Dejesus FNP-C [Primary Care Provider] - 07/13/24 1:20 pm Abdelrahman Yoon MD [Hospitalist] - 2 weeks (mediastinal and axillary lymphadenopathy, Small parasagittal right frontal mass. We have notified your physician's clinic of the need for a follow-up appointment to be scheduled. If you have not heard from them within the next 2 business days, please call them directly. ) Discharge Diet: Cardiac Discharge Activity: Resume usual activity Patient Instructions: Prednisone (By mouth), Losartan (By mouth), Levofloxacin (By mouth) (Levaquin, Levaquin Leva-amrita), COPD (Chronic Obstructive Pulmonary Disease) (GEN), Opioid Safety Activity Restrictions/Additional Instructions: - If you have any current shortness of breath please go to emergency room - Please follow-up with Dr. Aquino for COPD, mediastinal lymph nodes ? Please follow-up with Dr. Yoon for your small parasagittal right frontal mass, mediastinal lymph nodes, axillary lymph node -Please stop smoking Discharge Attestations Time Spent in Discharge Care*: greater than 30 min Time Spent in Smoking Cessation: more than 10 minutes Quality Metrics Clinical Quality Measures [ No reported AMI, CVA or VTE this stay] Coding Level of Care Code 16858 Total time (in minutes) for Discharge: 45 Diagnoses Acute respiratory failure with hypoxia J96.01 Pneumonia J18.9 Dizziness R42 Dehydration E86.0 COPD exacerbation J44.1 Intracranial mass R90.0
[2024-07-01] MEDS: levofloxacin-dextrose 5 % 750 MG/150 ML PREMIX 100 MG IV (11:17)
== END 2024-07-01 13:42 | disposition home or self-care (01) | DRG 190 ==
LOC: ER 15:27 → MEDSURG 19:22
PROVIDERS: Admitting Provider Family Medicine; Emergency Provider Emergency Medicine; PCP Nurse Practitioner; Visit Provider Family Medicine
DX: J44.1 Chronic obstructive pulmonary disease with (acute) exacerbation (principal); J18.9 Pneumonia, unspecified organism; J96.01 Acute respiratory failure with hypoxia; J44.0 Chronic obstructive pulmonary disease with (acute) lower respiratory infection; Z87.891 Personal history of nicotine dependence; E86.0 Dehydration; I73.9 Peripheral vascular disease, unspecified; F41.9 Anxiety disorder, unspecified; F32.A Depression, unspecified; I10 Essential (primary) hypertension; E55.9 Vitamin D deficiency, unspecified; E78.2 Mixed hyperlipidemia; G93.9 Disorder of brain, unspecified
CPT/HCPCS: 36415; 70450; 71045; 71275; 74176; 80053; 80061; 81003; 81015; 83605; 83615; 83690; 83735; 83880; 84100; 84145; 84443; 84484; 85025; 85651; 86140; 87040; 87077; 87086; 87150; 87186; 87205; 87486; 87581; 87633; 88184; 88185; 93005; 93880; 94640; 94664; 96365; 96372; 97116; 97161; 97165; 99285; J0360; J1650; J1956; J2405; J2470; J2919; J7030; J7626; J8597; Q9967

== ENCOUNTER 2024-07-04 16:53 | Emergency (ER) | payer OTHER, SELFPAY ==
[2024-07-04] VITALS (10 sets, daily range): BP systolic 105–147; BP diastolic 52–75; PULSE 81–95; RESP 16–30; TEMP 36.4–36.6; O2SAT 93–98
[2024-07-04 17:31] LABS: Basophils % 0.1 %; Eosinophils % 0.2 %; Hematocrit 49.7 % (36-47); Lymphocytes # 0.6 10^3/uL (0.8-4.8); Lymphocytes % 6.7 %; Mean Corpuscular HGB Conc 34.8 g/dL (30-55); Mean Corpuscular Hemoglobin 29.7 pg (27-33); Mean Corpuscular Volume 85.4 fl (85-98); Mean Platelet Volume 10.1 fL (7.4-10.4); Monocytes # 0.2 10^3/uL (0.2-0.9); Monocytes % 2.5 %; Neutrophils # 8.07 10^3/uL (1.8-7.7); Neutrophils % 90.2 %; Nucleated Red Blood Cells % 0 %; Platelet Count 199 10^3/cmm (157-399); Red Blood Count 5.82 10^6/uL (3.85-5.65); White Blood Count 8.95 10^3/uL (3.29-11.43)
--- NOTE | 2024-07-04 17:31 | W.ED.ABDPA2 ---
Documented by User: Nikolai Valera DO 07/05/24 05:53 HPI - Abdominal Pain General: Chief Complaint: Abdominal Pain Stated Complaint: weak/NVD Time Seen by Provider: 07/04/24 17:23 History of Present Illness: 78-year-old female presents to the emergency room complaining of persistent nausea and vomiting with weakness with periumbilical abdominal pain. She was discharged home from the hospital 3 days ago after admission for COPD exacerbation and pneumonia. She is typically on oxygen at 2 L/min and is doing well on that same dose today she was discharged home with Levaquin. She denies any hemoptysis denies any hematemesis coffee-ground emesis hematochezia or melena. She denies any dysuria urgency or frequency. States vomiting is mostly been bilious. Associated Symptoms: Reports dysuria, fever(s), nausea and vomiting; Denies chills, coffee ground emesis, hematochezia, hematemesis and melena Related Data Home Medications Medication Instructions Recorded Confirmed cholecalciferol (vitamin D3) 125 5,000 unit PO BID 12/06/19 06/29/24 mcg (5,000 unit) disintegrating tablet coenzyme Q10 100 mg capsule (Co 100 mg PO DAILY 06/18/21 06/29/24 Q-10) clopidogrel 75 mg tablet 75 mg PO DAILY 06/29/24 06/29/24 Previous Rx's Medication Instructions Recorded Disposable nebulizer circuit with #1 ea 12/09/21 mask cilostazol 100 mg tablet 100 mg PO BID #180 tabs 07/07/23 nifedipine 60 mg tablet,extended 60 mg PO DAILY #30 tabs 03/22/24 release 24 hr (Procardia XL) albuterol sulfate 2.5 mg/3 mL 2.5 mg (3 mL) inhalation Q4H PRN 06/07/24 (0.083 %) solution for nebulization shortness of breath or wheezing #180 mL albuterol sulfate 90 mcg/actuation 2 puff inhalation Q6H PRN 06/07/24 aerosol inhaler shortness of breath or wheezing #8.5 grams budesonide 0.5 mg/2 mL suspension 0.5 mg (2 mL) inhalation BID #60 mL 06/07/24 for nebulization (Pulmicort) budesonide 160 mcg-glycopyr 9 2 inh inhalation BID #10.7 grams 06/07/24 mcg-formot 4.8 mcg/actuation HFA inhaler (Breztri Aerosphere) furosemide 40 mg tablet (Lasix) 40 mg PO QAM #30 tabs 06/07/24 magnesium oxide 400 mg PO BID #60 tabs 06/07/24 quetiapine 50 mg tablet (Seroquel) 25 mg (1/2 x 50 mg) PO .at bedtime 06/07/24 #16 tabs rosuvastatin 20 mg tablet 20 mg PO DAILY #30 tabs 06/07/24 sertraline 50 mg tablet (Zoloft) 50 mg PO DAILY #60 tabs 06/07/24 sucralfate 100 mg/mL oral 10 ml PO BID #200 mL 06/27/24 suspension (Carafate) levofloxacin 750 mg tablet 750 mg PO DAILY 5 days #5 tabs 07/01/24 losartan 50 mg tablet 100 mg (2 x 50 mg) PO DAILY 30 07/01/24 days #60 tabs prednisone 20 mg tablet 20 mg PO BID 5 days #10 tabs 07/01/24 famotidine 40 mg tablet (Pepcid) 40 mg PO BID #30 tabs 07/04/24 nicotine 21 mg/24 hr daily 1 patch transdermal DAILY #28 ea 07/04/24 transdermal patch (Nicoderm CQ) ondansetron 4 mg disintegrating 4 mg PO Q6H PRN nausea and 07/04/24 tablet vomiting #30 tabs Allergies Allergy/AdvReac Type Severity Reaction Status Date / Time cefuroxime [From Ceftin] AdvReac Severe ADR-Gastrointestinal Verified 07/04/24 17:05 Upset Review of Systems Const: Reports: fever(s), body aches, fatigue and malaise; Denies: chills Card: Denies: chest pain Resp: Denies: dyspnea GI: Reports: abdominal pain, nausea and vomiting; Denies: hematemesis, coffee ground emesis, hematochezia or melena : Reports: dysuria and urinary frequency; Denies: urinary urgency Musc: Denies: neck pain or back pain Skin/Breast: Denies: rash PFSH ED PFSH: Medical History PAD (peripheral artery disease) Left displaced femoral neck fracture Murmur Personal history of nicotine dependence COPD (chronic obstructive pulmonary disease) Anxiety and depression Essential (primary) hypertension Vitamin D deficiency Mixed hyperlipidemia Surgical History S/P hip hemiarthroplasty History of breast biopsy Left Negative at age 20's Family History Family/Other Nicotine addiction Social History Smoking and tobacco/nicotine status: former use of tobacco/nicotine Second hand smoke exposure: Yes Alcohol intake: never Substance/Drug Use: never Adopted: No Caregiver/support person: No Lives independently: Yes Household members: spouse Housing: House Marital status: Number of children: 6 service: No Current occupational status: unemployed Current occupational exposures/hazards: No Pets and animals: Yes Do you think of yourself as: Straight/Heterosexual Current gender identity: Female Physical Exam Const: GENERAL APPEARANCE: cooperative ORIENTATION/CONSCIOUSNESS: Yes awake, Yes oriented to person, Yes oriented to place and Yes oriented to time HENMT: COMMON NORMALS: normocephalic, atraumatic and hearing grossly normal bilaterally HEAD & SCALP: normocephalic and atraumatic Resp: COMMON NORMALS: normal respiratory effort, No retractions, No use of accessory muscles and clear to auscultation bilaterally AUSCULTATION: clear to auscultation bilaterally Cardio: COMMON NORMALS: regular rate, regular rhythm and No murmurs present (Cardio) RATE: regular rate RHYTHM: regular rhythm GI: COMMON NORMALS: No hepatosplenomegaly present AUSCULTATION: Yes normoactive bowel sounds PALPATION: Yes Tenderness to palpation present (GI) (Periumbilical), No Guarding due to palpation present (GI) and Yes No hepatosplenomegaly present Extremity: COMMON NORMALS: normal to inspection, capillary refill normal, no clubbing, cyanosis or edema, no calf tenderness and no pedal edema Neuro: SENSORIUM/ORIENTATION: Yes oriented to person, Yes oriented to place and Yes oriented to time Skin: COMMON NORMALS: no rashes or lesions noted GENERAL SKIN EXAM: no rashes or lesions noted Course Vital Signs: Vital signs: Vital Signs Temperature 97.6 F 07/04/24 17:05 Pulse Rate 87 07/04/24 22:00 Respiratory Rate 18 07/04/24 19:00 Blood Pressure 147/71 07/04/24 22:00 Pulse Oximetry 93 07/04/24 22:00 Oxygen Delivery Me thod Nasal Cannula 07/04/24 20:00 Oxygen Flow Rate 2 07/04/24 20:00 MDM - Abdominal Pain Medical Decision Making Care signed out to Dr. Kumari at change of shift. See final notes for diagnosis and disposition. Medical Records I reviewed the patient's medical records. Lab Data I reviewed the patient's lab results. 07/04/24 17:20 07/04/24 17:20 Labs/Radiology: Laboratory Results WBC 8.95 10^3/uL (3.29-11.43) 07/04/24 17:20 RBC 5.82 10^6/uL (3.85-5.65) H 07/04/24 17:20 Hgb 17.30 g/dL (11.27-16.99) H 07/04/24 17:20 Hct 49.7 % (36-47) H 07/04/24 17:20 MCV 85.4 fl (85-98) 07/04/24 17:20 MCH 29.7 pg (27-33) 07/04/24 17:20 MCHC 34.8 g/dL (30-55) 07/04/24 17:20 RDW 13.0 % (12.1-15.1) 07/04/24 17:20 Plt Count 199 10^3/cmm (157-399) 07/04/24 17:20 MPV 10.1 fL (7.4-10.4) 07/04/24 17:20 Neut % (Auto) 90.2 % 07/04/24 17:20 Lymph % (Auto) 6.7 % 07/04/24 17:20 [place] % (Auto) 2.5 % 07/04/24 17:20 Eos % (Auto) 0.2 % 07/04/24 17:20 Baso % (Auto) 0.1 % 07/04/24 17:20 Neut # (Auto) 8.07 10^3/uL (1.8-7.7) H 07/04/24 17:20 Lymph # (Auto) 0.6 10^3/uL (0.8-4.8) L 07/04/24 17:20 [place] # (Auto) 0.2 10^3/uL (0.2-0.9) 07/04/24 17:20 Eos # (Auto) 0.0 10^3/uL (0.0-0.8) 07/04/24 17:20 Baso # (Auto) 0.0 10^3/uL (0.0-0.1) 07/04/24 17:20 Nucleated RBC % (auto) 0 % 07/04/24 17:20 Nucleated RBCs # 0.0 /100WBC 07/04/24 17:20 Sodium 130 mmol/L (136-145) L 07/04/24 17:20 Potassium 3.1 mmol/L (3.5-5.1) L 07/04/24 17:20 Chloride 88 mmol/L (98-107) L 07/04/24 17:20 Carbon Dioxide 28 mmol/L (22-29) 07/04/24 17:20 Anion Gap 17.1 (5-19) 07/04/24 17:20 BUN 32 mg/dL (8-23) H 07/04/24 17:20 Creatinine 0.8 mg/dL (0.5-0.9) 07/04/24 17:20 GFR Calculation Not Reportable 07/04/24 17:20 Glucose 134 mg/dL (65-115) H 07/04/24 17:20 Calculated Osmolality 279 mOsm/kg (285-295) L 07/04/24 17:20 Lactic Acid 1.3 mmol/L (0.5-2.2) 07/04/24 17:20 Calcium 9.7 mg/dL (8.5-10.5) 07/04/24 17:20 Total Bilirubin 0.9 mg/dL (0.15-1.2) 07/04/24 17:20 AST 16 U/L (0-32) 07/04/24 17:20 ALT 7 U/L (0-33) 07/04/24 17:20 Alkaline Phosphatase 70 U/L (35-105) 07/04/24 17:20 Total Protein 6.9 g/dL (6.6-8.7) 07/04/24 17:20 Albumin 4.3 g/dL (3.5-5.2) 07/04/24 17:20 Globulin 2.6 g/dL (1.3-4.6) 07/04/24 17:20 Lipase 15 U/L (13-60) 07/04/24 17:20 Urine Color Yellow (Yellow) 07/04/24 19:30 Urine Appearance Clear (CLEAR) 07/04/24 19:30 Urine pH 6.5 (5-7) 07/04/24 19:30 Ur Specific [place] 1.021 (1.005-1.030) 07/04/24 19:30 Urine Protein 2+ (Negative) A 07/04/24 19:30 Urine Glucose (UA) Negative (Normal) 07/04/24 19:30 Urine Ketones Trace (Negative) 07/04/24 19:30 Urine Blood Negative (Negative) 07/04/24 19:30 Urine Nitrate Negative (Negative) 07/04/24 19:30 Urine Bilirubin Negative (Negative) 07/04/24 19:30 Urine Urobilinogen 1.0 mg/dL (Negative) 07/04/24 19:30 Ur Leukocyte Esterase Negative (Negative) 07/04/24 19:30 Urine RBC 0-4 /hpf (0-2) H 07/04/24 19:30 Urine WBC 0-4 /hpf (0-5) H 07/04/24 19:30 Ur Squamous Epith Cells 15-25 /hpf (0-5) H 07/04/24 19:30 Amorphous Sediment Not Reportable 07/04/24 19:30 Urine Bacteria Trace /hpf (NONE) 07/04/24 19:30 Urine Mucus 2+ /hpf 07/04/24 19:30 Discharge Plan Discharge Patient Disposition: Home Clinical Impression: Acute hypokalemia, Chest pain due to GERD Nausea & vomiting Qualifiers: Vomiting type: unspecified Qualified Code(s): R11.2 - Nausea with vomiting, unspecified Condition: Stable Prescriptions: New Nicoderm CQ 21 mg/24 hr patch 24 hour 1 patch transdermal DAILY Qty: 28 0RF ondansetron 4 mg tablet,disintegrating 4 mg PO Q6H PRN (Reason: nausea and vomiting) Qty: 30 0RF Pepcid 40 mg tablet 40 mg PO BID Qty: 30 0RF No Action cholecalciferol (vitamin D3) 5,000 unit tablet,disintegrating 5,000 unit PO BID coenzyme Q10 [Co Q-10] 100 mg capsule 100 mg PO DAILY sucralfate [Carafate] 100 mg/mL suspension 10 ml PO BID Qty: 200 0RF cilostazol 100 mg tablet 100 mg PO BID Qty: 180 3RF nifedipine [Procardia XL] 60 mg tablet extended release 24hr 60 mg PO DAILY Qty: 30 2RF Hold Instructions: Swelling and stool problems albuterol sulfate 2.5 mg /3 mL (0.083 %) solution for nebulization 2.5 mg inhalation Q4H PRN (Reason: shortness of breath or wheezing) Qty: 180 2RF albuterol sulfate 90 mcg/actuation HFA aerosol inhaler 2 puff inhalation Q6H PRN (Reason: shortness of breath or wheezing) Qty: 8.5 2RF budesonide [Pulmicort] 0.5 mg/2 mL suspension for nebulization 0.5 mg INHALATION BID Qty: 60 2RF Breztri Aerosphere 160-9-4.8 mcg/actuation HFA aerosol inhaler 2 inh inhalation BID Qty: 10.7 2RF magnesium oxide 400 mg magnesium tablet 400 mg PO BID Qty: 60 2RF quetiapine [Seroquel] 50 mg tablet 25 mg PO .at bedtime Qty: 16 2RF rosuvastatin 20 mg tablet 20 mg PO DAILY Qty: 30 2RF furosemide [Lasix] 40 mg tablet 40 mg PO QAM Qty: 30 0RF Zoloft 50 mg tablet 50 mg PO DAILY Qty: 60 2RF (DME) Disposable nebulizer circuit with mask See Rx Instructions .ROUTE .MEDSUPPLY Qty: 1 2RF Rx Instructions: As directed clopidogrel 75 mg tablet 75 mg PO DAILY losartan 50 mg Tablet 100 mg PO DAILY 30 Days Qty: 60 0RF levofloxacin 750 mg tablet 750 mg PO DAILY 5 Days Qty: 5 0RF prednisone 20 mg tablet 20 mg PO BID 5 Days Qty: 10 0RF Discharge Orders: Discharge ED (Routine); Ordered 07/04/24 Ordered By: Stuart Kumari Referrals: Juliann Dejesus, [employer] [Primary Care Provider] - 1 week Patient Instructions: Hypokalemia (ED), GERD (Gastroesophageal Reflux Disease) (ED), Acute Nausea and Vomiting (ED) Activity Restrictions/Additional Instructions: Pain medicines been called into pharmacy. Please pick them up and take them as prescribed. Please follow-up with your practitioner in the next 7 days for further evaluation treatment. Thank you for choosing [facility] for your healthcare needs today. Please realize that you were seen in the emergency department and that we are providing you with an emergency medical screening exam and this may not be a complete and all exclusive of all testing and/or medical workup we may need to determine your element or severity of your illness. It is very important that you follow-up as instructed with your primary care provider or specialist for the additional evaluation and to discuss your medical treatment plan. You may return to the emergency department should you have concerns or if your condition changes or worsens in any way. Coding Level of Care Code ED Hematologist for Chg Fwd Documented by User: Stuart Kumari DO 07/05/24 02:15 HPI - Abdominal Pain General: Chief Complaint: Abdominal Pain Stated Complaint: weak/NVD Time Seen by Provider: 07/04/24 17:23 Related Data Home Medications Medication Instructions Recorded Confirmed cholecalciferol (vitamin D3) 125 5,000 unit PO BID 12/06/19 06/29/24 mcg (5,000 unit) disintegrating tablet coenzyme Q10 100 mg capsule (Co 100 mg PO DAILY 06/18/21 06/29/24 Q-10) clopidogrel 75 mg tablet 75 mg PO DAILY 06/29/24 06/29/24 Previous Rx's Medication Instructions Recorded Disposable nebulizer circuit with #1 ea 12/09/21 mask cilostazol 100 mg tablet 100 mg PO BID #180 tabs 07/07/23 nifedipine 60 mg tablet,extended 60 mg PO DAILY #30 tabs 03/22/24 release 24 hr (Procardia XL) albuterol sulfate 2.5 mg/3 mL 2.5 mg (3 mL) inhalation Q4H PRN 06/07/24 (0.083 %) solution for nebulization shortness of breath or wheezing #180 mL albuterol sulfate 90 mcg/actuation 2 puff inhalation Q6H PRN 06/07/24 aerosol inhaler shortness of breath or wheezing #8.5 grams budesonide 0.5 mg/2 mL suspension 0.5 mg (2 mL) inhalation BID #60 mL 06/07/24 for nebulization (Pulmicort) budesonide 160 mcg-glycopyr 9 2 inh inhalation BID #10.7 grams 06/07/24 mcg-formot 4.8 mcg/actuation HFA inhaler (Breztri Aerosphere) furosemide 40 mg tablet (Lasix) 40 mg PO QAM #30 tabs 06/07/24 magnesium oxide 400 mg PO BID #60 tabs 06/07/24 quetiapine 50 mg tablet (Seroquel) 25 mg (1/2 x 50 mg) PO .at bedtime 06/07/24 #16 tabs rosuvastatin 20 mg tablet 20 mg PO DAILY #30 tabs 06/07/24 sertraline 50 mg tablet (Zoloft) 50 mg PO DAILY #60 tabs 06/07/24 sucralfate 100 mg/mL oral 10 ml PO BID #200 mL 06/27/24 suspension (Carafate) levofloxacin 750 mg tablet 750 mg PO DAILY 5 days #5 tabs 07/01/24 losartan 50 mg tablet 100 mg (2 x 50 mg) PO DAILY 30 07/01/24 days #60 tabs prednisone 20 mg tablet 20 mg PO BID 5 days #10 tabs 07/01/24 famotidine 40 mg tablet (Pepcid) 40 mg PO BID #30 tabs 07/04/24 nicotine 21 mg/24 hr daily 1 patch transdermal DAILY #28 ea 07/04/24 transdermal patch (Nicoderm CQ) ondansetron 4 mg disintegrating 4 mg PO Q6H PRN nausea and 07/04/24 tablet vomiting #30 tabs Allergies Allergy/AdvReac Type Severity Reaction Status Date / Time cefuroxime [From Ceftin] AdvReac Severe ADR-Gastrointestinal Verified 07/04/24 17:05 Upset [facility] ED PFSH: Medical History PAD (peripheral artery disease) Left displaced femoral neck fracture Murmur Personal history of nicotine dependence COPD (chronic obstructive pulmonary disease) Anxiety and depression Essential (primary) hypertension Vitamin D deficiency Mixed hyperlipidemia Surgical History S/P hip hemiarthroplasty History of breast biopsy Left Negative at age 20's Family History Family/Other Nicotine addiction Social History Smoking and tobacco/nicotine status: former use of tobacco/nicotine Second hand smoke exposure: Yes Alcohol intake: never Substance/Drug Use: never Adopted: No Caregiver/support person: No Lives independently: Yes Household members: spouse Housing: House Marital status: Number of children: 6 service: No Current occupational status: unemployed Current occupational exposures/hazards: No Pets and animals: Yes Do you think of yourself as: Straight/Heterosexual Current gender identity: Female Course Vital Signs: Vital signs: Vital Signs Temperature 97.6 F 07/04/24 17:05 Pulse Rate 87 07/04/24 22:00 Respiratory Rate 18 07/04/24 19:00 Blood Pressure 147/71 07/04/24 22:00 Pulse Oximetry 93 07/04/24 22:00 Oxygen Delivery Me thod Nasal Cannula 07/04/24 20:00 Oxygen Flow Rate 2 07/04/24 20:00 MDM - Abdominal Pain Medical Decision Making Care signed out to Dr. Kumari at change of shift. See final notes for diagnosis and disposition. Lab work was discussed with the patient. Patient is given 40 mill equivalents of potassium for potassium 3.1, GI cocktail, and a NicoDerm patch. Will prescribe the patient NicoDerm patch, patient, and Zofran, patient will be to follow-up with her PCP within the next week. Lab Data 07/04/24 17:20 07/04/24 17:20 Labs/Radiology: Laboratory Results WBC 8.95 10^3/uL (3.29-11.43) 07/04/24 17:20 RBC 5.82 10^6/uL (3.85-5.65) H 07/04/24 17:20 Hgb 17.30 g/dL (11.27-16.99) H 07/04/24 17:20 Hct 49.7 % (36-47) H 07/04/24 17:20 MCV 85.4 fl (85-98) 07/04/24 17:20 MCH 29.7 pg (27-33) 07/04/24 17:20 MCHC 34.8 g/dL (30-55) 07/04/24 17:20 RDW 13.0 % (12.1-15.1) 07/04/24 17:20 Plt Count 199 10^3/cmm (157-399) 07/04/24 17:20 MPV 10.1 fL (7.4-10.4) 07/04/24 17:20 Neut % (Auto) 90.2 % 07/04/24 17:20 Lymph % (Auto) 6.7 % 07/04/24 17:20 [place] % (Auto) 2.5 % 07/04/24 17:20 Eos % (Auto) 0.2 % 07/04/24 17:20 Baso % (Auto) 0.1 % 07/04/24 17:20 Neut # (Auto) 8.07 10^3/uL (1.8-7.7) H 07/04/24 17:20 Lymph # (Auto) 0.6 10^3/uL (0.8-4.8) L 07/04/24 17:20 [place] # (Auto) 0.2 10^3/uL (0.2-0.9) 07/04/24 17:20 Eos # (Auto) 0.0 10^3/uL (0.0-0.8) 07/04/24 17:20 Baso # (Auto) 0.0 10^3/uL (0.0-0.1) 07/04/24 17:20 Nucleated RBC % (auto) 0 % 07/04/24 17:20 Nucleated RBCs # 0.0 /100WBC 07/04/24 17:20 Sodium 130 mmol/L (136-145) L 07/04/24 17:20 Potassium 3.1 mmol/L (3.5-5.1) L 07/04/24 17:20 Chloride 88 mmol/L (98-107) L 07/04/24 17:20 Carbon Dioxide 28 mmol/L (22-29) 07/04/24 17:20 Anion Gap 17.1 (5-19) 07/04/24 17:20 BUN 32 mg/dL (8-23) H 07/04/24 17:20 Creatinine 0.8 mg/dL (0.5-0.9) 07/04/24 17:20 GFR Calculation Not Reportable 07/04/24 17:20 Glucose 134 mg/dL (65-115) H 07/04/24 17:20 Calculated Osmolality 279 mOsm/kg (285-295) L 07/04/24 17:20 Lactic Acid 1.3 mmol/L (0.5-2.2) 07/04/24 17:20 Calcium 9.7 mg/dL (8.5-10.5) 07/04/24 17:20 Total Bilirubin 0.9 mg/dL (0.15-1.2) 07/04/24 17:20 AST 16 U/L (0-32) 07/04/24 17:20 ALT 7 U/L (0-33) 07/04/24 17:20 Alkaline Phosphatase 70 U/L (35-105) 07/04/24 17:20 Total Protein 6.9 g/dL (6.6-8.7) 07/04/24 17:20 Albumin 4.3 g/dL (3.5-5.2) 07/04/24 17:20 Globulin 2.6 g/dL (1.3-4.6) 07/04/24 17:20 Lipase 15 U/L (13-60) 07/04/24 17:20 Urine Color Yellow (Yellow) 07/04/24 19:30 Urine Appearance Clear (CLEAR) 07/04/24 19:30 Urine pH 6.5 (5-7) 07/04/24 19:30 Ur Specific [place] 1.021 (1.005-1.030) 07/04/24 19:30 Urine Protein 2+ (Negative) A 07/04/24 19:30 Urine Glucose (UA) Negative (Normal) 07/04/24 19:30 Urine Ketones Trace (Negative) 07/04/24 19:30 Urine Blood Negative (Negative) 07/04/24 19:30 Urine Nitrate Negative (Negative) 07/04/24 19:30 Urine Bilirubin Negative (Negative) 07/04/24 19: Urine Urobilinogen 1.0 mg/dL (Negative) 07/04/24 19:30 Ur Leukocyte Esterase Negative (Negative) 07/04/24 19:30 Urine RBC 0-4 /hpf (0-2) H 07/04/24 19:30 Urine WBC 0-4 /hpf (0-5) H 07/04/24 19:30 Ur Squamous Epith Cells 15-25 /hpf (0-5) H 07/04/24 19:30 Amorphous Sediment Not Reportable 07/04/24 19:30 Urine Bacteria Trace /hpf (NONE) 07/04/24 19:30 Urine Mucus 2+ /hpf 07/04/24 19:30 All radiology interpretation(s) finalized by discharge Discharge Plan Discharge Patient Disposition: Home Clinical Impression: Acute hypokalemia, Chest pain due to GERD Nausea & vomiting Qualifiers: Vomiting type: unspecified Qualified Code(s): R11.2 - Nausea with vomiting, unspecified Condition: Stable Prescriptions: New Nicoderm CQ 21 mg/24 hr patch 24 hour 1 patch transdermal DAILY Qty: 28 0RF ondansetron 4 mg tablet,disintegrating 4 mg PO Q6H PRN (Reason: nausea and vomiting) Qty: 30 0RF Pepcid 40 mg tablet 40 mg PO BID Qty: 30 0RF No Action cholecalciferol (vitamin D3) 5,000 unit tablet,disintegrating 5,000 unit PO BID coenzyme Q10 [Co Q-10] 100 mg capsule 100 mg PO DAILY sucralfate [Carafate] 100 mg/mL suspension 10 ml PO BID Qty: 200 0RF cilostazol 100 mg tablet 100 mg PO BID Qty: 180 3RF nifedipine [Procardia XL] 60 mg tablet extended release 24hr 60 mg PO DAILY Qty: 30 2RF Hold Instructions: Swelling and stool problems albuterol sulfate 2.5 mg /3 mL (0.083 %) solution for nebulization 2.5 mg inhalation Q4H PRN (Reason: shortness of breath or wheezing) Qty: 180 2RF albuterol sulfate 90 mcg/actuation HFA aerosol inhaler 2 puff inhalation Q6H PRN (Reason: shortness of breath or wheezing) Qty: 8.5 2RF budesonide [Pulmicort] 0.5 mg/2 mL suspension for nebulization 0.5 mg INHALATION BID Qty: 60 2RF Breztri Aerosphere 160-9-4.8 mcg/actuation HFA aerosol inhaler 2 inh inhalation BID Qty: 10.7 2RF magnesium oxide 400 mg magnesium tablet 400 mg PO BID Qty: 60 2RF quetiapine [Seroquel] 50 mg tablet 25 mg PO .at bedtime Qty: 16 2RF rosuvastatin 20 mg tablet 20 mg PO DAILY Qty: 30 2RF furosemide [Lasix] 40 mg tablet 40 mg PO QAM Qty: 30 0RF Zoloft 50 mg tablet 50 mg PO DAILY Qty: 60 2RF (DME) Disposable nebulizer circuit with mask See Rx Instructions .ROUTE .MEDSUPPLY Qty: 1 2RF Rx Instructions: As directed clopidogrel 75 mg tablet 75 mg PO DAILY losartan 50 mg Tablet 100 mg PO DAILY 30 Days Qty: 60 0RF levofloxacin 750 mg tablet 750 mg PO DAILY 5 Days Qty: 5 0RF prednisone 20 mg tablet 20 mg PO BID 5 Days Qty: 10 0RF Discharge Orders: Discharge ED (Routine); Ordered 07/04/24 Ordered By: Stuart Kumari Referrals: Juliann Dejesus, [employer] [Primary Care Provider] - 1 week Patient Instructions: Hypokalemia (ED), GERD (Gastroesophageal Reflux Disease) (ED), Acute Nausea and Vomiting (ED) Activity Restrictions/Additional Instructions: Pain medicines been called into pharmacy. Please pick them up and take them as prescribed. Please follow-up with your practitioner in the next 7 days for further evaluation treatment. Thank you for choosing [facility] for your healthcare needs today. Please realize that you were seen in the emergency department and that we are providing you with an emergency medical screening exam and this may not be a complete and all exclusive of all testing and/or medical workup we may need to determine your element or severity of your illness. It is very important that you follow-up as instructed with your primary care provider or specialist for the additional evaluation and to discuss your medical treatment plan. You may return to the emergency department should you have concerns or if your condition changes or worsens in any way. Coding Level of Care Code ED Hematologist for Noah Rothman
[2024-07-04 17:49] LABS: Alanine Aminotransferase 7 U/L (0-33); Albumin Level 4.3 g/dL (3.5-5.2); Alkaline Phosphatase 70 U/L (35-105); Anion Gap 17.1 (5-19); Aspartate Amino Transferase 16 U/L (0-32); Blood Urea Nitrogen 32 mg/dL (8-23); Calcium 9.7 mg/dL (8.5-10.5); Carbon Dioxide 28 mmol/L (22-29); Chloride 88 mmol/L (98-107); Globulin 2.6 g/dL (1.3-4.6); Glucose 134 mg/dL (65-115); Lipase 15 U/L (13-60); Osmolality Calculated 279 mOsm/kg (285-295); Potassium 3.1 mmol/L (3.5-5.1); Sodium 130 mmol/L (136-145); Total Bilirubin 0.9 mg/dL (0.15-1.2); Total Protein 6.9 g/dL (6.6-8.7)
--- NOTE | 2024-07-04 17:51 | ECG_ITS ---
[facility] Test Date: 2024-07-04 Pat Name: Heather Ramesh Department: Room: Gender: Female Manager Programming: : 1945 Requested By: Nikolai Combs Order Number: [id number] Oumar MD: Saravanan Perez M.D. Measurements Intervals [place] Rate: 84 P: 60 MN: 122 QRS: 66 QRSD: 90 T: 72 QT: 372 QTc: 442 Interpretive Statements SINUS RHYTHM WITH OCCASIONAL VENTRICULAR PREMATURE COMPLEXES POSSIBLE LEFT ATRIAL ENLARGEMENT [-0.1mV P-WAVE IN V1/V2] MODERATE ST DEPRESSION [0.05+ mV ST DEPRESSION] Compared to ECG 06/29/2024 00:34:02 Ventricular premature complex(es) now present ST (T wave) deviation now present Electronically Signed On 07-04-2024 18:07:30 CDT by Saravanan Perez M.D. [email or web address]
[2024-07-04] MEDS: ondansetron 2 mg/ML SDV 2 mL 4 MG IVP (17:59)
[2024-07-04] MEDS: sodium chloride 0.9% 1,000 ML 999 ML IV (17:59)
[2024-07-04 18:05] LABS: Lactic Sepsis W/Reflex 1.3 mmol/L (0.5-2.2)
[2024-07-04] MEDS: potassium chloride ER 20 mEq Tablet 40 MEQ PO (18:20)
[2024-07-04 19:38] LABS: Charge for UA Resulting for Rev
[2024-07-04 19:41] LABS: Bilirubin Urine Negative (Negative); Blood Urine Negative (Negative); Glucose Urine UA Negative (Normal); Ketones Urine Trace (Negative); Leukocyte Esterase Urine Negative (Negative); Nitrate Urine Negative (Negative); Protein Urine 2+ (Negative); Specific Gravity, Urine 1.021 (1.005-1.030); Urine Appearance Clear (CLEAR); Urine Color Yellow (Yellow); pH Urine 6.5 (5-7)
[2024-07-04 20:14] LABS: Mucus Urine 2+ /hpf; RBC Urine 0-4 /hpf (0-2); Squamous Epithelial Cell Urine 15-25 /hpf (0-5); UA Manual Slide Review YES; WBC Urine 0-4 /hpf (0-5)
[2024-07-04 20:15] LABS: Add Urine Culture? No; Bacteria Urine TRACE /hpf
[2024-07-04] MEDS: nicotine 21 mg Patch 1 PATCH TRANSDERMA (20:36)
[2024-07-04] MEDS: lidocaine 2% viscous 15 ML, aluminum-mag hydrox-simethicon 30 ML, sucralfate oral liq 1 GM PO (20:37)
== END 2024-07-04 22:25 | disposition home or self-care (01) ==
PROVIDERS: Emergency Medicine; Emergency Provider Family Medicine; PCP Nurse Practitioner
DX: R11.2 Nausea with vomiting, unspecified (principal); E87.6 Hypokalemia; K21.9 Gastro-esophageal reflux disease without esophagitis; R07.9 Chest pain, unspecified; Z79.02 Long term (current) use of antithrombotics/antiplatelets; Z87.891 Personal history of nicotine dependence; J44.9 Chronic obstructive pulmonary disease, unspecified; I10 Essential (primary) hypertension; E78.2 Mixed hyperlipidemia
CPT/HCPCS: 36415; 80053; 81003; 81015; 83605; 83690; 85025; 87040; 93005; 96361; 96374; 99284; J2405; J7030

== ENCOUNTER 2024-07-26 12:15 | Outpatient (CLI) | payer OTHER, SELFPAY ==
--- NOTE | 2024-07-26 12:15 | MR_ITS ---
WS: [id number] MRI BRAIN WITH AND WITHOUT CONTRAST HISTORY: Altered mental status. COMPARISON: Noncontrast CT head 06/28/2024 TECHNIQUE: Diffusion imaging, multiplanar T1, T2 and FLAIR imaging obtained. Postcontrast MultiHance IV. No acute infarcts are identified. There are multiple masses noted throughout the brain on the postcontrast imaging. The largest mass is in the floor of the fourth ventricle measuring 1.3 x 0.9 x 1.2 cm. Not causing any obstruction at th is time. There are multiple additional enhancing nodules in the posterior fossa and the supratentoria l brain. Previously described RIGHT posterior parasagittal mass contains hemosiderin and also does en russel. This mass was described on a recent CT. There are a few additional scattered foci of hemosider in. There is a small amount of hemosiderin in the mass within the floor the fourth ventricle. Periphe rally enhancing mass in the posterior LEFT frontal parietal junction measures 1.0 x 1.4 x 1.2 cm. Additional extensive chronic small vessel ischemic type changes throughout the periventricular white matter. There is a small amount of edema surrounding the brain masses. No midline shift. Moderate atr ophy. Mild bilateral hippocampal atrophy. No ventriculomegaly. Paranasal sinuses: Clear. Mastoid air cells: Normal. Calvarium and scalp: Intact. MR/MR head wo/w con [id number] IMPRESSION: 1. Numerous enhancing lesions throughout the brain. Some of these lesions cont ain hemosiderin. 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 Consider melanoma, renal, breast and lung primary. 2. The most concerning mass is in the floor the fourth ventricle measuring 1.3 x 0.9 x 1.2 cm and not causing an obstruction at this time. 3. There are multiple additional similar size and smaller masses in the cerebr um and cerebellum with mild surrounding edema. No midline shift. 4. Severe chronic small vessel disease. Notified SULEMAN Dawkins at 07/26/2024 2:22 PM.
== END 2024-07-26 12:24 | disposition home or self-care (01) ==
PROVIDERS: PCP Nurse Practitioner; Visit Provider Nurse Practitioner
DX: G93.89 Other specified disorders of brain (principal); D43.2 Neoplasm of uncertain behavior of brain, unspecified; I25.85 Chronic coronary microvascular dysfunction
CPT/HCPCS: 70551; 70553; A9577

== ENCOUNTER 2024-08-01 10:25 | Oncology outpatient (recurring) (ONCR) | payer OTHER, SELFPAY ==
--- NOTE | 2024-08-01 11:53 | N.ONRAD NP_ITS ---
Radiation Oncology New Patient Visit Patient: Heather Ramesh MR#: [id number] : 1945> Age: 78> Sex: Female> Dictated by: Giancarlo Huffman DO/RAYMOND/KERRI Date of Service: 08/01/2024 Referring Physician(s) : Diagnosis: C34.81 - malignant neoplasm of overlapping sites of right bronchus and lung, Diagnosed 08/01/2024 (active), stage manoj, t4, n2, m1b. + Cough/SOB, CT Chest 06/28/2024 showed + mediastinal LN's, Subcarinal/RT Hilar LN/LEFT Axilla, C/O dizziness and MRI Brain 07/26/2024 showed multiple MASSES- LEFT Frontal/Parietal 1 x 1.4 x 1.2 cm and 4TH Ventricle 1.3 x 0.9 x 1.2 cm, Dexamethasone 4 mg QID, PRIOR SMOKER quit 1 month ago with a [id number] smoking history, ABNORMAL GAIT. Radiotherapy to date: Summary > No prior radiation therapy. Chief Complaint: I have brain mets History of Present Illness: This is a pleasant 78-year-old female who presented to her PCP with chief complaint of positive cough and shortness of breath. Patient underwent CT of the C/A/P on 06/28/2024 which showed enlarged mediastinal lymph nodes, subcarinal lymph nodes/right hilar lymph nodes and lymphadenopathy in the left axilla. Patient complained of dizziness and abnormal gait and underwent MRI Brain on 07/26/2024. This return left frontal/Parietal mass measuring 1 x 1.4 x 1 1.2 cm. There is also a mass in the floor of the fourth ventricle measuring 1.3 x 0.9 x 1.2 cm. Patient is a prior smoker quitting some 1 month ago and smoked for approximately 75 pack years. Taking dexamethasone 4 mg QID. Patient lives at home with her in [place], [place] Patient has 1 sister who has lung cancer. Current Medications: albuterol sulfate 2.5 mg (3 mL) inhalation Q4H PRN albuterol sulfate 90 mcg/actuation 2 puffs inhalation Q6H PRN budesonide (Pulmicort) 0.5 mg (2 mL) inhalation BID ejkdwvjtgm-ckecmsqs-dkanwzekhf 160-9-4.8 mcg/actuation (Breztri Aerosphere) 2 inhalations inhalation BID buspirone 10 mg PO TID cholecalciferol (vitamin D3) 5,000 units PO BID cilostazol 100 mg PO BID clopidogrel 75 mg PO DAILY coenzyme Q10 (Co Q-10) 100 mg PO DAILY [Disposable nebulizer circuit with mask As directed] famotidine (Pepcid) 40 mg PO BID furosemide (Lasix) 40 mg PO QAM losartan 100 mg (2 x 50 mg) PO DAILY 30 days magnesium oxide 400 mg PO BID nifedipine ER (Procardia XL) 60 mg PO DAILY ondansetron 4 mg PO Q6H PRN quetiapine (Seroquel) 25 mg (1/2 x 50 mg) PO .at bedtime rosuvastatin 20 mg PO DAILY sertraline (Zoloft) 50 mg PO .2 times day [Wheel chair As directed] Allergies: cefuroxime [From Ceftin] Adverse Reaction (Severe, Verified 07/19/24 21:54) ADR-Gastrointestinal Upset Medical History: No history of collagen vascular disease. No previous radiation therapy. PAD (peripheral artery disease) Left displaced femoral neck fracture Murmur Personal history of nicotine dependence COPD (chronic obstructive pulmonary disease) Anxiety and depression Essential (primary) hypertension Vitamin D deficiency Mixed hyperlipidemia Surgical History: S/P hip hemiarthroplasty History of breast biopsy Left Negative at age 20's Family History: Nicotine addiction Social History: Smoking and tobacco/nicotine status: former use of tobacco/nicotine Second hand smoke exposure: Yes Alcohol intake: never Substance/Drug Use: never Adopted: No Caregiver/support person: No Lives independently: Yes Household members: spouse Housing: House Marital status: Number of children: 6 service: No Current occupational status: unemployed Current occupational exposures/hazards: No Pets and animals: Yes Do you think of yourself as: Straight/Heterosexual Current gender identity: Female Current Complaints / Review of Systems: As noted above Vital Signs: Performed on 08/01/2024 10:21 AM BMI - 23.997 kg/m2 (high), Height - 64 in, Weight - 139.8 lbs, Temperature - 97.7 f, Pulse - 75 /min, Respiration - 22 /min (high), O2 Sat - 96 %, Pain - 0, Fatigue - 0 and BP - 189/ 92 mm(hg)(high). Physical Exam: Alert and oriented and answers questions appropriately. Neck shows no cervical lymphadenopathy. Neuro patient is in wheelchair and has abnormal gait Lungs: Mild wheezing noted. Abdomen: Soft nontender with no hepatosplenomegaly Performance Status: KPS 90 Pathology: PENDING BX Imaging: See HPI IMPRESSION: + Cough/SOB CT Chest 06/28/2024 showed + mediastinal LN's, Subcarinal/RT Hilar LN/LEFT Axilla C/O dizziness MRI Brain 07/26/2024 showed multiple MASSES- LEFT Frontal/Parietal 1 x 1.4 x 1.2 cm and 4TH Ventricle 1.3 x 0.9 x 1.2 cm Dexamethasone 4 mg QID PRIOR SMOKER quit 1 month ago with a [id number]-[id number] smoking history ABNORMAL GAIT PLAN: Discussed options with patient and family. Patient will need biopsy of either mediastinal disease or left axilla soon as possible Recommend WBRT to the dose of 3000 cGy in 10 fractions commence tomorrow Continue steroid use Undergo CT simulation this date. Signed informed consent under her own free will after all questions answered [place] consult to be done next week Signed by: 08/01/2024 11:50:11 AM <<Signature on File>> Time spent with patient: CPT Code: CPT Code:
== END 2024-08-01 23:59 | disposition home or self-care (01) ==
PROVIDERS: PCP Nurse Practitioner; Visit Provider Radiology Radiation Oncology
DX: C34.81 Malignant neoplasm of overlapping sites of right bronchus and lung (principal); C79.31 Secondary malignant neoplasm of brain; Z87.891 Personal history of nicotine dependence
CPT/HCPCS: 77290; 77334; 80053; 85025; 99205

== ENCOUNTER → 2024-08-11 14:38 | Outpatient (BNVA) | payer OTHER, SELFPAY | PROVIDERS: PCP Nurse Practitioner; Referring Provider Internal Medicine Hematology & Oncology; Visit Provider Surgery | DX: G93.89 Other specified disorders of brain (principal) | CPT/HCPCS: 99204 ==

== ENCOUNTER 2024-08-26 09:22 | Oncology outpatient (recurring) (ONCR) | payer OTHER, SELFPAY ==
[2024-08-09 08:59] LABS: Basophils % 0.1 %; Eosinophils % 0.1 %; Hematocrit 49.7 % (36-47); Lymphocytes # 1.3 10^3/uL (0.8-4.8); Lymphocytes % 13.3 %; Mean Corpuscular HGB Conc 33.2 g/dL (30-55); Mean Corpuscular Hemoglobin 29.9 pg (27-33); Mean Corpuscular Volume 90.2 fl (85-98); Mean Platelet Volume 9.7 fL (7.4-10.4); Monocytes # 0.6 10^3/uL (0.2-0.9); Monocytes % 6.7 %; Neutrophils # 7.59 10^3/uL (1.8-7.7); Neutrophils % 79.2 %; Nucleated Red Blood Cells % 0 %; Platelet Count 214 10^3/cmm (157-399); Red Blood Count 5.51 10^6/uL (3.85-5.65); Red Cell Distribution Width 13.4 % (12.1-15.1); White Blood Count 9.59 10^3/uL (3.29-11.43)
[2024-08-09 09:10] LABS: Alanine Aminotransferase < 5 U/L (0-33); Albumin Level 3.7 g/dL (3.5-5.2); Alkaline Phosphatase 79 U/L (35-105); Aspartate Amino Transferase 13 U/L (0-32); Blood Urea Nitrogen 21 mg/dL (8-23); Calcium 9.1 mg/dL (8.5-10.5); Carbon Dioxide 29 mmol/L (22-29); Chloride 97 mmol/L (98-107); Creatinine Clr Calc Pharmacy 54.0746; Globulin 2.6 g/dL (1.3-4.6); Glucose 132 mg/dL (65-115); Osmolality Calculated 289 mOsm/kg (285-295); Sodium 137 mmol/L (136-145); Total Bilirubin 0.7 mg/dL (0.15-1.2); Total Protein 6.3 g/dL (6.6-8.7); Uric Acid 4.3 mg/dL (2.4-5.7)
[2024-08-09 09:11] LABS: Anion Gap 14.8 (5-19); Lactate Dehydrogenase 222 U/L (135-214); Potassium 3.8 mmol/L (3.5-5.1)
--- NOTE | 2024-08-09 09:11 | ONCRAD TMN_ITS ---
Radiation Oncology Weekly Treatment Management Patient: Domitila Romero> MR#: [id number] : 1945> Attending Physician: Dr. Elva Cage Date of Service: 08/09/2024 Fractions: 5 out of 10 Referring Physician(s) : Diagnosis: C34.81 - Malignant neoplasm of overlapping sites of right bronchus and lung, Diagnosed 08/01/2024 (Active) Stage ISIDRO, T4, N2, M1b C79.31 - Secondary malignant neoplasm of brain, Diagnosed 08/01/2024 (Active) Radiotherapy to date: Course: Whole Brain 2023, Treatment Site: [id number], Ref. ID: [id number], Energy: 15X, Dose/Fx (cGy): 300, #Fx: 5 / 10, Dose Correction (cGy): 0, Total Dose Delivered (cGy): 1,500, Start Date: 08/03/2024, Elapsed Days: 6 Reason for visit: The patient is being seen today as part of their regularly scheduled weekly on treatment visits to assess for acute toxicities from radiotherapy. Review of Systems: Patient still has some mild nausea but the Zofran that we sent yesterday to her pharmacy has improved it. She denies any respiratory issues but her respiratory rate seems labored Vital Signs: Performed on 08/09/2024 8:27 AM BMI - 23.585 kg/m2 (high), Height - 64 in, Weight - 137.4 lbs, Temperature - 97.5 f, Pulse - 80 /min, Respiration - 22 /min (high), O2 Sat - 97 %, Pain - 0, Fatigue - 0 and BP - 134/ 83 mm(hg). Physical Exam: No changes in the skin on exam Imaging: Radiation therapy imaging related to accurate target localization (i.e. KV, MV and CBCT) was reviewed. Appropriate changes, if any, were made to ensure treatment accuracy. Plan: Will continue with her treatments as planned. She has 1 more week of treatment. She will be seeing medical oncology today. Signed by: Dr. Elva Cage 08/09/2024 9:10:36 AM
--- NOTE | 2024-08-16 15:56 | ONCRAD TMN_ITS ---
Radiation Oncology Weekly Treatment Management Patient: Heather Ramesh MR#: [id number] : 1945 Attending Physician: Dr. Elva Cage Date of Service: 08/16/2024 Fractions: 9 out of 10 Referring Physician(s) : Diagnosis: C34.81 - Malignant neoplasm of overlapping sites of right bronchus and lung, Diagnosed 08/01/2024 (Active) Stage ISIDRO, T4, N2, M1b C79.31 - Secondary malignant neoplasm of brain, Diagnosed 08/01/2024 (Active) Radiotherapy to date: Course: Whole Brain 2023, Treatment Site: [id number], Ref. ID: [id number], Energy: 15X, Dose/Fx (cGy): 300, #Fx: , Dose Correction (cGy): 0, Total Dose Delivered (cGy): 2,700, Start Date: 08/03/2024, Elapsed Days: 13 Reason for visit: The patient is being seen today as part of their regularly scheduled weekly on treatment visits to assess for acute toxicities from radiotherapy. Review of Systems: Patient had a headache this morning and this was relieved with her steroid. When I ask him any steroid she was taking there was considerable debate between her son and her and herself on how many she was actually taking. Vital Signs: Performed on 08/16/2024 3:30 PM BMI - 24.374 kg/m2 (high), Height - 64 in, Weight - 142 lbs, Temperature - 97.1 f, Pulse - 92 /min, Respiration - 16 /min, O2 Sat - 96 %, Pain - 0, Fatigue - 0 and BP - 145/ 69 mm(hg)(high/). Physical Exam: No changes on exam. Patient remains in a wheelchair. Imaging: Radiation therapy imaging related to accurate target localization (i.e. KV, MV and CBCT) was reviewed. Appropriate changes, if any, were made to ensure treatment accuracy. Plan: At this point I have asked her to bring the bottle of steroids tomorrow. Will set up a taper for her at that time. They also had questions about a biopsy being done. Apparently this was ordered as a CT-guided biopsy of the left axillary node but this is yet to be scheduled. She does have a PET scan on August [address] Hilton is already scheduled to place a port. The question on whether the port should be placed until the biopsy is done. I will see if and get all these answers for them tomorrow and we will see her on her last day. Signed by: Dr. Elva Cage 08/16/2024 3:54:49 PM
--- NOTE | 2024-08-18 08:27 | N.ONRD TS_ITS ---
Radiation Oncology Treatment Summary Patient: Heather Ramesh MR#: [id number] : 1945 Age: 78 Sex: Female Dictated by: Dr. Elva Cage Date of Service: 08/17/2024 Referring Physician(s) : Diagnosis: C34.81 - Malignant neoplasm of overlapping sites of right bronchus and lung, Diagnosed 08/01/2024 (Active) Stage ISIDRO, T4, N2, M1b C79.31 - Secondary malignant neoplasm of brain, Diagnosed 08/01/2024 (Active) Radiotherapy to Date: Course: Whole Brain 2023, Treatment Site: [id number], Ref. ID: [id number], Energy: 15X, Dose/Fx (cGy): 300, #Fx: , Dose Correction (cGy): 0, Total Dose Delivered (cGy): 3,000, Start Date: 08/03/2024, End Date: 08/17/2024, Elapsed Days: 14 Clinical Summary: The patient tolerated RT well. She had no skin changes. She had occasional headaches which were relieved with her steroids. Plan: End of treatment today. Continue on the above medication until the skin reaction resolves. Follow up in one month. Signed by: Dr. Elva Cage>08/18/2024 8:26:42 AM <<Signature on File>>
--- NOTE | 2024-08-26 09:30 | PETR_ITS ---
PROCEDURE INFORMATION: Exam: PET/CT Skull Base to Mid-thigh Exam date and time: 08/26/2024 10:37 AM Age: 78 years old Clinical indication: Symptoms: Lung nodules and lymphadenopathy LABS AND CLINICAL REPORTS: Glucose: 98 mg/dl Treatment strategy for malignancy (PET staging): Initial Staging (PI) TECHNIQUE: Imaging protocol: Following at least four-hour fasting and following the injection of radiopharmaceutical, low dose CT images were obtained. Then, PET images were obtained. Attenuation corrected images were constructed using the CT scan. Fused images of PET and CT were reviewed. The standardized uptake values (SUV) reported below are maximum values within a region of interest, expressed in gm/ml. Exam includes orbital meatal line to mid-thigh. Radiopharmaceutical: 9.7 mCi F-18 FDG (Fluorodeoxyglucose), IV. Time of imaging post radiopharmaceutical administration: 46 minutes Injection site: Left antecubital COMPARISON: 1. CT abdomen pelvis wo con [id number] 06/29/2024 8:[address] angio chest PE protcl [id number] 06/28/2024 8:59 PM FINDINGS: Brain: Visualized brain has normal physiologic uptake. Pharynx: No abnormal uptake. Larynx: No abnormal uptake. Lungs, pleura and trachea: 8 mm right lower lobe nodule on axial image 230 of series 202 shows SUV max of 4.8. Decreased conspicuity of 6 mm right upper lobe nodularity now shows non FDG avid linear morphology favoring scar. Stable non FDG avid branching opacity at the basal right lower lobe. Bilateral calcified granulomata. Heart: Normal physiologic uptake. Coronary arteries: Moderate to heavy coronary artery calcification. Mediastinal space: No abnormal uptake. Diaphragm: Small hiatal hernia. Liver: No abnormal uptake. Gallbladder and biliary ducts: No abnormal uptake. Pancreas: No abnormal uptake. Spleen: No abnormal uptake. Adrenal glands: No abnormal uptake. Kidneys and ureters: Normal physiologic uptake. Punctate left renal calcification without hydronephrosis. Stomach and bowel: No abnormal uptake. Vasculature: No abnormal uptake. Heavy systemic atherosclerotic calcification without aortic aneurysm. Lymph nodes: FDG avid mediastinal, right hilar, bilateral axillary, and abdominal lymphadenopathy. Index right paratracheal node measures 1.2 cm in the short axis on axial image 254 of series 202 and shows SUV max of 3.4. Right superior aortocaval node measuring 7 mm in the short axis on axial image 254 of series 202 shows SUV max of 4.9. Right hilar node measuring 1.4 cm in the short axis on axial image 230 of series 202 shows SUV max of 6.3. 1.9 x 1.6 cm right axillary node on axial image 265 of series 202 shows SUV max of 7. 4. Left axillary node measuring 2.6 cm in the short axis on axial image 269 of series 202 shows SUV max of 6.5. Rounded gastrohepatic node measuring 1.3 cm on axial image 194 of series 202 shows SUV max of 7.8. 1.1 cm peripancreatic node on axial image 186 of series 202 shows SUV max of 5.0. Lymph node just anterior to the right common iliac artery measures 1.7 cm in the short axis on axial image 143 of series 202 and shows SUV max of 10.1. Nonspecific low-level left hilar FDG uptake without discrete underlying lymph node. Skeleton: No abnormal uptake in the visualized axial and appendicular skeleton. Degenerative change along the axial skeletal system and shoulders. Left total hip arthroplasty. Soft tissues: Linear FDG uptake along left upper arm musculature, bilateral pectoralis minor muscles, and posterior left thoracic paraspinal musculature without underlying CT abnormality in keeping with muscle activation. PET/PET skull to thigh INIT [id number] IMPRESSION: 1. FDG avid 8 mm right lower lobe nodule suspicious for malignancy. 2. FDG avid mediastinal, right hilar, bilateral axillary, and abdominal lymphadenopathy. Nonspecific low-level left hilar FDG uptake. 3. Additional chronic and incidental findings as above, to include heavy atherosclerosis and coronary artery calcification.
== END 2024-09-01 23:59 | disposition home or self-care (01) ==
LOC: RAD 09:22 → ONCMED 08-29 10:36
PROVIDERS: PCP Nurse Practitioner; Visit Provider Internal Medicine Hematology & Oncology
DX: R91.8 Other nonspecific abnormal finding of lung field (principal); R59.1 Generalized enlarged lymph nodes; I70.90 Unspecified atherosclerosis; I25.10 Atherosclerotic heart disease of native coronary artery without angina pectoris
CPT/HCPCS: 36415; 77280; 77295; 77300; 77334; 77336; 77412; 77417; 78815; 80053; 83615; 84550; 85025; 99024; 99204; A9552

== ENCOUNTER 2024-08-30 14:34 | Inpatient (IN) | payer OTHER, SELFPAY ==
[2024-08-30] VITALS (14 sets, daily range): BP systolic 95–140; BP diastolic 58–79; PULSE 96–112; RESP 18–26; TEMP 36.4–36.7; O2SAT 88–98; BMI 24.0
--- NOTE | 2024-08-30 14:54 | XRR_ITS ---
PROCEDURE INFORMATION: Exam: XR Chest Exam date and time: 08/30/2024 3:11 PM Age: 79 years old Clinical indication: Shortness of breath; Additional info: SOB TECHNIQUE: Imaging protocol: Radiologic exam of the chest. Views: 1 view. COMPARISON: 1. PT PET skull to thigh INIT [id number] 08/26/2024 10:37 AM 2. CR XR chest 1V portable [id number] 06/28/2024 2:27 PM FINDINGS: Lungs: 7 mm right lower lung zone nodule. No consolidation. Pleural spaces: Unremarkable. No pleural effusion. No pneumothorax. Heart/Mediastinum: Unremarkable. No cardiomegaly. Vasculature: Aortic arch atherosclerotic calcification. Bones/joints: Degenerative change along the spine and shoulders. XR/XR chest 1V portable [id number] IMPRESSION: 1. No acute findings. 2. 7 mm right lower lung zone nodule corresponds to nodule of concern on recent PET-CT.
--- NOTE | 2024-08-30 15:01 | CTR_ITS ---
PROCEDURE INFORMATION: Exam: CTA Chest With Contrast Exam date and time: 08/30/2024 4:35 PM Age: 79 years old Clinical indication: Shortness of breath; Additional info: SOB TECHNIQUE: Imaging protocol: Computed tomographic angiography of the chest with contrast. Exam focused on the arteries. 3D rendering (Not supervised by radiologist): MIP and/or 3D reconstructed images were created by the technologist. Radiation optimization: All CT scans at this facility use at least one of these dose optimization techniques: automated exposure control; mA and/or kV adjustment per patient size (includes targeted exams where dose is matched to clinical indication); or iterative reconstruction. Contrast material: OMNI 350; Contrast volume: 100 ml; Contrast route: INTRAVENOUS (IV); COMPARISON: CT angio chest PE protcl [id number] 06/28/2024 8:59 PM PT PET skull to thigh INIT [id number] 08/26/2024 10:37 AM RADIATION DOSE METRICS: Total DLP (mGy-cm): 278.09 FINDINGS: Pulmonary arteries: Small filling defect in a subsegmental branch of the right middle lobe. Multiple filling defects involving the distal left main pulmonary artery and multiple lobar, segmental, and subsegmental branches in the left upper and lower lobes. No saddle embolus. Aorta: Unremarkable. No aortic aneurysm. No aortic dissection. Lungs: Severe emphysema. Stable small scar in the peripheral right upper lobe. Larger 0.8 cm right lower lobe nodule (series 4, image 31). Mild dependent atelectasis in the right lower and middle lobes. Stable branching density in the right lower lobe, most likely obstructed bronchi. This was non FDG avid. Small calcified granuloma in the left lower lobe. Pleural spaces: Unremarkable. No pneumothorax. No pleural effusion. Heart: The RV/LV ratio is 1.4, suggesting elevated right heart pressure. Coronary arteries: Coronary artery calcifications. Lymph nodes: Prominent mediastinal and hilar lymph nodes, measuring up to 1.1 cm short axis. These have decreased slightly in size. Stable enlarged axillary lymph nodes, the largest on the left measuring 2.9 cm. Kidneys: 2 mm nonobstructing left renal calculus. Bones/joints: Chronic mild T12 compression fracture. Mild degenerative changes of the spine. No acute fracture. Soft tissues: Unremarkable. CT/CT angio chest PE protcl [id number] IMPRESSION: 1. Exam is positive for pulmonary emboli, predominantly in the left lung. 2. RV/LV ratio suggests elevated right heart pressure. 3. 8 mm right lower lobe nodule, suspicious for malignancy. 4. Enlarged mediastinal, hilar, and axillary lymphadenopathy. This is suspicious for malignancy.
--- NOTE | 2024-08-30 15:01 | USCV_ITS ---
Heather Ramesh Age: 79 Gender: F : 1945 Exam Date: 08/30/2024 15:17 Ordering Phys: Mansoor Quiroga MD Technologist: Audrey Hairston Exam Location: [id number] Indication: LLE PAIN AND SWELLING HISTORY: Lower extremity swelling. Lower extremity pain. PROCEDURES: Venous duplex imaging was performed in only the left lower extremity. The following venous structures were evaluated: common femoral vein, profunda vein, proximal portion of the greater saphenous vein, superficial femoral vein, and the popliteal vein. In addition, the posterior tibial and peroneal trunk were evaluated. Serial compression, augmentation maneuvers, and spectral Doppler flow evaluation were performed. FINDINGS: Technically very limited evaluation of the femoral veins. Inadquate evaluation of the veins to exclude DVT. CONCLUSIONS Technically limited evaluation of the veins. Veins are not visualized well enough to evaluated for DVT. Dr. Ashley Salazar DO (Electronically Signed) Final Date: 30 August 2024 15:44 S
[2024-08-30 15:05] LABS: ABG PCO2 40.3 mmHg (35-45); ABG PH Result 7.49 (7.35-7.45); Base Excess ABG 6.3 mmol/L (-2.0-2.0); Blood Gas Allen Test Pos; Blood Gas Operator Identificat WALCI; Blood Gas Sample Site Radial, right; Blood Gas Sample Type Arterial; Carboxyhemoglobin 1.5 %THgb (0.4-20.1); HCO3 ABG 30.3 mmol/L (22-26); HGB O2 Sat 94.5 % (95-100); Methemoglobin 1.1 % (0.4-1.5); Oxygen Device NC; PO2 ABG 75.5 mmHg (80.0-100.0); Total Hemoglobin 13.4 g/dL (12-16)
--- NOTE | 2024-08-30 15:09 | W.ED.SOB ---
HPI - SOB/Dyspnea General: Chief Complaint: Shortness of Breath/Dyspnea Stated Complaint: congestive Time Seen by Provider: 08/30/24 14:53 Source: patient Mode of arrival: ambulatory Limitations: no limitations History of Present Illness: HPI Narrative: 79-year-old female has a history of COPD along with new diagnosis of lung cancer she states that she has been having increasing cough shortness of breath over the last few days states her cough has been nonproductive she denies any fever states she had had pneumonia in the past and this feels similar she typically wears 2 L oxygen at home was had increase it to 4-5. She denies any pain denies any vomiting states she has had some slight swelling to her left leg as well Associated symptoms: Deny abdominal pain, chest pain, fever(s), nausea or vomiting Related Data Home Medications Medication Instructions Recorded Confirmed cholecalciferol (vitamin D3) 125 5,000 unit PO BID 12/06/19 08/11/24 mcg (5,000 unit) disintegrating tablet coenzyme Q10 100 mg capsule (Co 100 mg PO DAILY 06/18/21 08/11/24 Q-10) clopidogrel 75 mg tablet 75 mg PO DAILY 06/29/24 08/11/24 Previous Rx's Medication Instructions Recorded Disposable nebulizer circuit with #1 ea 12/09/21 mask cilostazol 100 mg tablet 100 mg PO BID #180 tabs 07/07/23 nifedipine 60 mg tablet,extended 60 mg PO DAILY #30 tabs 03/22/24 release 24 hr (Procardia XL) albuterol sulfate 2.5 mg/3 mL 2.5 mg (3 mL) inhalation Q4H PRN 06/07/24 (0.083 %) solution for nebulization shortness of breath or wheezing #180 mL albuterol sulfate 90 mcg/actuation 2 puff inhalation Q6H PRN 06/07/24 aerosol inhaler shortness of breath or wheezing #8.5 grams budesonide 0.5 mg/2 mL suspension 0.5 mg (2 mL) inhalation BID #60 mL 06/07/24 for nebulization (Pulmicort) budesonide 160 mcg-glycopyr 9 2 inh inhalation BID #10.7 grams 06/07/24 mcg-formot 4.8 mcg/actuation HFA inhaler (Breztri Aerosphere) furosemide 40 mg tablet (Lasix) 40 mg PO QAM #30 tabs 06/07/24 magnesium oxide 400 mg PO BID #60 tabs 06/07/24 quetiapine 50 mg tablet (Seroquel) 25 mg (1/2 x 50 mg) PO .at bedtime 06/07/24 #16 tabs rosuvastatin 20 mg tablet 20 mg PO DAILY #30 tabs 06/07/24 famotidine 40 mg tablet (Pepcid) 40 mg PO BID #30 tabs 07/04/24 ondansetron 4 mg disintegrating 4 mg PO Q6H PRN nausea and 07/04/24 tablet vomiting #30 tabs Wheel chair #1 ea 07/13/24 buspirone 10 mg tablet 10 mg PO TID #90 tabs 07/13/24 sertraline 50 mg tablet (Zoloft) 50 mg PO .2 times day #60 tabs 07/13/24 clonazepam 1 mg tablet (Klonopin) 1 mg PO .prior to procedure #1 tab 07/26/24 scopolamine base 1 mg over 3 days 1 patch transdermal Q3D PRN nausea 07/26/24 transdermal patch and vomiting #4 ea dexamethasone 4 mg tablet 4 mg PO BID #40 tabs 08/29/24 ondansetron 8 mg disintegrating 8 mg PO Q8H PRN nausea and 08/29/24 tablet vomiting #90 tabs Allergies Allergy/AdvReac Type Severity Reaction Status Date / Time cefuroxime [From Ceftin] AdvReac Severe ADR-Gastrointestinal Verified 08/11/24 14:47 Upset Review of Systems Const: Denies: fever(s), chills, body aches or change in appetite ENMT: Denies: throat pain or dental pain Card: Denies: chest pain Resp: Reports: dyspnea and non-productive cough GI: Denies: abdominal pain, nausea, vomiting or diarrhea Musc: Denies: neck pain or back pain Skin/Breast: Denies: rash Neuro: Denies: headache(s) PFSH ED PFSH: Medical History PAD (peripheral artery disease) Left displaced femoral neck fracture Murmur Personal history of nicotine dependence COPD (chronic obstructive pulmonary disease) Anxiety and depression Essential (primary) hypertension Vitamin D deficiency Mixed hyperlipidemia Surgical History S/P hip hemiarthroplasty History of breast biopsy Left Negative at age 20's Family History Family/Other Nicotine addiction Social History Smoking and tobacco/nicotine status: never used tobacco/nicotine Second hand smoke exposure: Yes Alcohol intake: never Substance/Drug Use: never Adopted: No Caregiver/support person: No Lives independently: Yes Household members: spouse Housing: House Marital status: Number of children: 6 service: No Current occupational status: unemployed Current occupational exposures/hazards: No Pets and animals: Yes Do you think of yourself as: Straight/Heterosexual Current gender identity: Female Physical Exam Const: COMMON NORMALS: no acute distress, patient oriented x3 and healthy appearing HENMT: COMMON NORMALS: normocephalic and atraumatic HEAD & SCALP: normocephalic and atraumatic Neck/C-Spine: COMMON NORMALS: full ROM and supple Chest: COMMONS NORMALS: normal inspection of the chest Resp: COMMON NORMALS: No retractions and No use of accessory muscles AUSCULTATION: wheezes Cardio: COMMON NORMALS: regular rate, regular rhythm and No murmurs present (Cardio) RATE: regular rate RHYTHM: regular rhythm GI: COMMON NORMALS: Normal to inspection, nondistended, normoactive bowel sounds present, Soft to palpation, non-tender and no masses PALPATION: Yes Soft to palpation Extremity: COMMON NORMALS: full ROM NARRATIVE EXTREMITY EXAM: Swelling noted to left leg distal pulses intact Neuro: COMMON NORMALS: patient oriented x3, moves all extremities and no focal motor deficits Psych: COMMON NORMALS: mental status grossly normal, Normal thought process present and cooperative THOUGHT PROCESS: Normal thought process present Skin: COMMON NORMALS: no rashes or lesions noted and no wounds GENERAL SKIN EXAM: no rashes or lesions noted Course Vital Signs: Vital signs: Vital Signs Temperature 97.6 F 08/30/24 14:39 Pulse Rate 104 H 08/30/24 17:00 Respiratory Rate 21 H 08/30/24 17:00 Blood Pressure 114/58 08/30/24 16:49 Pulse Oximetry 95 08/30/24 17:00 Oxygen Delivery Me thod Nasal Cannula 08/30/24 17:00 Oxygen Flow Rate 3.5 08/30/24 17:00 MDM - SOB/Dyspnea Medical Decision Making Patient presents here with shortness of breath she is found to have a DVT along with a pulmonary embolism blood pressure here has been stable currently systolic in the 150s will start patient on heparin I spoke to the hospitalist will admit. Medical Records I reviewed the patient's medical records. Lab Data I reviewed the patient's lab results. 08/30/24 15:20 08/30/24 15:20 Labs/Radiology: Radiology Impressions Chest X-Ray 08/30/24 14:54 IMPRESSION: 1. No acute findings. 2. 7 mm right lower lung zone nodule corresponds to nodule of concern on recent PET-CT. Chest CTA 08/30/24 15:01 IMPRESSION: 1. Exam is positive for pulmonary emboli, predominantly in the left lung. 2. RV/LV ratio suggests elevated right heart pressure. 3. 8 mm right lower lobe nodule, suspicious for malignancy. 4. Enlarged mediastinal, hilar, and axillary lymphadenopathy. This is suspicious for malignancy. ADDENDUM: 08/30/24 172 THIS REPORT CONTAINS FINDINGS THAT MAY BE CRITICAL TO PATIENT CARE. The findings were verbally communicated via telephone conference with ZACKERY JAMES at 5:20 PM CDT on 08/30/2024. The findings were acknowledged and understood. Laboratory Results WBC 6.30 10^3/uL (3.29-11.43) 08/30/24 15:20 RBC 4.54 10^6/uL (3.85-5.65) 08/30/24 15:20 Hgb 13.50 g/dL (11.27-16.99) 08/30/24 15:20 Hct 40.9 % (36-47) 08/30/24 15:20 MCV 90.1 fl (85-98) 08/30/24 15:20 MCH 29.7 pg (27-33) 08/30/24 15:20 MCHC 33.0 g/dL (30-55) 08/30/24 15:20 RDW 14.0 % (12.1-15.1) 08/30/24 15:20 Plt Count 188 10^3/cmm (157-399) 08/30/24 15:20 MPV 10.0 fL (7.4-10.4) 08/30/24 15:20 Neut % (Auto) 90.6 % 08/30/24 15:20 Lymph % (Auto) 5.9 % 08/30/24 15:20 [place] % (Auto) 1.9 % 08/30/24 15:20 Eos % (Auto) 0.0 % 08/30/24 15:20 Baso % (Auto) 0.2 % 08/30/24 15:20 Neut # (Auto) 5.71 10^3/uL (1.8-7.7) 08/30/24 15:20 Lymph # (Auto) 0.4 10^3/uL (0.8-4.8) L 08/30/24 15:20 [place] # (Auto) 0.1 10^3/uL (0.2-0.9) L 08/30/24 15:20 Eos # (Auto) 0.0 10^3/uL (0.0-0.8) 08/30/24 15:20 Baso # (Auto) 0.0 10^3/uL (0.0-0.1) 08/30/24 15:20 Nucleated RBC % (auto) 0 % 08/30/24 15:20 Nucleated RBCs # 0.0 /100WBC 08/30/24 15:20 Specimen Type Arterial 08/30/24 14:54 Sample Site Radial, right 08/30/24 14:54 ABG pH 7.49 (7.35-7.45) H 08/30/24 14:54 ABG pCO2 40.3 mmHg (35-45) 08/30/24 14:54 ABG pO2 75.5 mmHg (80.0-100.0) L 08/30/24 14:54 ABG HCO3 30.3 mmol/L (22-26) H 08/30/24 14:54 ABG Base Excess 6.3 mmol/L (-2.0-2.0) H 08/30/24 14:54 Abisai Test Pos 08/30/24 14:54 Hematocrit 41.0 % (37-47) 08/30/24 14:54 Hgb O2 Saturation 94.5 % (95-100) L 08/30/24 14:54 Carboxyhemoglobin 1.5 %THgb (0.4-20.1) 08/30/24 14:54 Methemoglobin 1.1 % (0.4-1.5) 08/30/24 14:54 Total Hemoglobin 13.4 g/dL (12-16) 08/30/24 14:54 O2 Delivery Device Nc 08/30/24 14:54 O2 Liters/Min 5.0 % 08/30/24 14:54 Developmental Mathematics Professor ID Wal[place] 08/30/24 14:54 Sodium 141 mmol/L (136-145) 08/30/24 15:20 Potassium 3.8 mmol/L (3.5-5.1) 08/30/24 15:20 Chloride 99 mmol/L (98-107) 08/30/24 15:20 Carbon Dioxide 30 mmol/L (22-29) H 08/30/24 15:20 Anion Gap 15.8 (5-19) 08/30/24 15:20 BUN 27 mg/dL (8-23) H 08/30/24 15:20 Creatinine 0.9 mg/dL (0.5-0.9) 08/30/24 15:20 GFR Calculation Not Reportable 08/30/24 15:20 Glucose 168 mg/dL (65-115) H 08/30/24 15:20 Calculated Osmolality 301 mOsm/kg (285-295) H 08/30/24 15:20 Lactic Acid 1.9 mmol/L (0.5-2.2) 08/30/24 15:20 Calcium 8.8 mg/dL (8.5-10.5) 08/30/24 15:20 Total Bilirubin 0.8 mg/dL (0.15-1.2) 08/30/24 15:20 AST 22 U/L (0-32) 08/30/24 15:20 ALT 12 U/L (0-33) 08/30/24 15:20 Alkaline Phosphatase 108 U/L (35-105) H 08/30/24 15:20 Troponin T Baseline 32 ng/L (0-10) H 08/30/24 15:20 NT-Pro-B Natriuret Pep 988 pg/mL (0-450) H 08/30/24 15:20 Total Protein 6.3 g/dL (6.6-8.7) L 08/30/24 15:20 Albumin 3.5 g/dL (3.5-5.2) 08/30/24 15:20 Globulin 2.8 g/dL (1.3-4.6) 08/30/24 15:20 Coronavirus (PCR) Negative (Negative) 08/30/24 15:16 Influenza A (PCR) Negative (Negative) 08/30/24 15:16 Influenza Type B (PCR) Negative (Negative) 08/30/24 15:16 RSV (PCR) Negative (Negative) 08/30/24 15:16 All radiology interpretation(s) finalized by discharge EKG Data EKG 1: I personally reviewed and interpreted this EKG as follows: EKG Interpretation Date: 08/30/24 EKG interpretation time: 15:27 Interpretation: sinus tach hr [address] elevation qrs 86 qtc 380 Discharge Plan Discharge Patient Disposition: Admitted As Inpatient Clinical Impression: Pulmonary embolism Condition: Stable Prescriptions: No Action cholecalciferol (vitamin D3) 5,000 unit tablet,disintegrating 5,000 unit PO BID coenzyme Q10 [Co Q-10] 100 mg capsule 100 mg PO DAILY scopolamine base 1 mg over 3 days patch 3 day 1 patch transdermal Q3D PRN (Reason: nausea and vomiting) Qty: 4 0RF clonazepam [Klonopin] 1 mg tablet 1 mg PO .prior to procedure Qty: 1 0RF cilostazol 100 mg tablet 100 mg PO BID Qty: 180 3RF nifedipine [Procardia XL] 60 mg tablet extended release 24hr 60 mg PO DAILY Qty: 30 2RF Hold Instructions: Patient No Longer Taking albuterol sulfate 2.5 mg /3 mL (0.083 %) solution for nebulization 2.5 mg inhalation Q4H PRN (Reason: shortness of breath or wheezing) Qty: 180 2RF albuterol sulfate 90 mcg/actuation HFA aerosol inhaler 2 puff inhalation Q6H PRN (Reason: shortness of breath or wheezing) Qty: 8.5 2RF budesonide [Pulmicort] 0.5 mg/2 mL suspension for nebulization 0.5 mg INHALATION BID Qty: 60 2RF Breztri Aerosphere 160-9-4.8 mcg/actuation HFA aerosol inhaler 2 inh inhalation BID Qty: 10.7 2RF magnesium oxide 400 mg magnesium tablet 400 mg PO BID Qty: 60 2RF quetiapine [Seroquel] 50 mg tablet 25 mg PO .at bedtime Qty: 16 2RF Hold Instructions: Patient No Longer Taking rosuvastatin 20 mg tablet 20 mg PO DAILY Qty: 30 2RF Hold Instructions: Patient No Longer Taking furosemide [Lasix] 40 mg tablet 40 mg PO QAM Qty: 30 0RF Hold Instructions: Patient No Longer Taking Zoloft 50 mg tablet 50 mg PO .2 times day Qty: 60 2RF (DME) Wheel chair See Rx Instructions .Route .MEDSUPPLY Qty: 1 0RF Rx Instructions: As directed buspirone 10 mg tablet 10 mg PO TID Qty: 90 2RF Rx Instructions: for anxiety as needed (DME) Disposable nebulizer circuit with mask See Rx Instructions .ROUTE .MEDSUPPLY Qty: 1 2RF Rx Instructions: As directed ondansetron 8 mg tablet,disintegrating 8 mg PO Q8H PRN (Reason: nausea and vomiting) Qty: 90 3RF dexamethasone 4 mg tablet 4 mg PO BID Qty: 40 0RF clopidogrel 75 mg tablet 75 mg PO DAILY Hold Instructions: Patient No Longer Taking ondansetron 4 mg tablet,disintegrating 4 mg PO Q6H PRN (Reason: nausea and vomiting) Qty: 30 0RF Pepcid 40 mg tablet 40 mg PO BID Qty: 30 0RF Hold Instructions: Patient No Longer Taking Referrals: Juliann Dejesus, [employer] [Primary Care Provider] - Coding Level of Care Code ED [employer]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
[2024-08-30] MEDS: sodium chloride 0.9% 1,000 ML 999 ML IV (15:23)
[2024-08-30] MEDS: methylPREDNISolone sod succ 125 mg/2 mL INJ IVP (15:23)
--- NOTE | 2024-08-30 15:27 | ECG_ITS ---
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 Measurements Intervals [place] Rate: 101 P: 53 ME: 127 QRS: 64 QRSD: 86 T: 64 QT: 322 QTc: 419 Interpretive Statements SINUS TACHYCARDIA Otherwise no significant abnormality noted. Compared to ECG 07/04/2024 17:51:41 Ventricular premature complex(es) no longer present ST (T wave) deviation no longer present Electronically Signed On 08-30-2024 16:25:53 CDT by Nilson Arana M.D. [id number]
[2024-08-30 15:28] LABS: Basophils % 0.2 %; Hematocrit 40.9 % (36-47); Lymphocytes # 0.4 10^3/uL (0.8-4.8); Lymphocytes % 5.9 %; Mean Corpuscular Hemoglobin 29.7 pg (27-33); Mean Corpuscular Volume 90.1 fl (85-98); Monocytes # 0.1 10^3/uL (0.2-0.9); Monocytes % 1.9 %; Neutrophils # 5.71 10^3/uL (1.8-7.7); Neutrophils % 90.6 %; Nucleated Red Blood Cells % 0 %; Platelet Count 188 10^3/cmm (157-399); Red Blood Count 4.54 10^6/uL (3.85-5.65)
[2024-08-30] MEDS: ipratropium-albuterol 3 mL Neb INHALATION ×2 (15:30→21:09)
[2024-08-30 15:47] LABS: Lactic Sepsis W/Reflex 1.9 mmol/L (0.5-2.2)
[2024-08-30 15:57] LABS: Alanine Aminotransferase 12 U/L (0-33); Albumin Level 3.5 g/dL (3.5-5.2); Alkaline Phosphatase 108 U/L (35-105); Blood Urea Nitrogen 27 mg/dL (8-23); Calcium 8.8 mg/dL (8.5-10.5); Carbon Dioxide 30 mmol/L (22-29); Chloride 99 mmol/L (98-107); Creatinine Clr Calc Pharmacy 47.6902; Globulin 2.8 g/dL (1.3-4.6); Glucose 168 mg/dL (65-115); NT Pro B Type Natriuretic Pept 988 pg/mL (0-450); Osmolality Calculated 301 mOsm/kg (285-295); Sodium 141 mmol/L (136-145); Total Bilirubin 0.8 mg/dL (0.15-1.2); Total Protein 6.3 g/dL (6.6-8.7)
[2024-08-30 16:00] LABS: Anion Gap 15.8 (5-19); Aspartate Amino Transferase 22 U/L (0-32); Potassium 3.8 mmol/L (3.5-5.1)
[2024-08-30 16:11] LABS: Troponin(5th) Baseline 32 ng/L (0-10)
[2024-08-30 16:20] LABS: Covid PCR NEGATIVE (Negative); Influenza A NEGATIVE (Negative); Influenza B NEGATIVE (Negative); Respiratory Syncytial Virus Ce NEGATIVE (Negative)
[2024-08-30] MEDS: iohexol 350 mg/mL 500 mL Btl (per mL) IV (16:50)
--- NOTE | 2024-08-30 17:30 | ECG_ITS ---
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 Measurements Intervals [place] Rate: 103 P: 59 ME: 122 QRS: 67 QRSD: 91 T: 63 QT: 338 QTc: 443 Interpretive Statements SINUS TACHYCARDIA WITH OCCASIONAL VENTRICULAR PREMATURE COMPLEXES POSSIBLE LEFT ATRIAL ENLARGEMENT [-0.1mV P-WAVE IN V1/V2] LOW QRS VOLTAGE IN PRECORDIAL LEADS [QRS DEFLECTION < 1.0 mV IN CHEST LEADS] ABNORMAL RHYTHM ECG Compared to ECG 08/30/2024 15:27:52 Ventricular premature complex(es) now present Low QRS voltage now present Electronically Signed On 08-31-2024 18:12:35 CDT by Nilson Arana M.D. [id number]
--- NOTE | 2024-08-30 17:51 | P.HP_ITS ---
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 She presented to the emergency room today with increasing shortness of breath over the last 4-5 days. She was hypoxic, currently on 3.5 L/min supplemental O2. She is tachypneic and tachycardic. She has been found to have B/L PE, L> R. Thus far received heparin bolus in the emergency room and started heparin gtt Denies any fever chills nausea or vomiting. reveiw of chart shows a recent diagnosis of metastatic brain lesions as noted below , which are presumed to be a pulmonary source at this time. Patient is yet to have a tissue diagnosis. She has a right LL pulmonary nodule and axillary and medicatsinal LAD. It appears there has been plan to biopsy the Lymph node with IR as outpatient but this is yet to happen. She has been receiving WBRT , is scheduled to get a port soon. Review of Systems 2 General: Reports: 10 or more systems reviewed and unremarkable except in HPI and below Const: Denies: fever(s), chills or body aches Eyes: Denies: change in vision, blurry vision or photophobia ENMT: Reports: hoarseness; Denies: throat pain, enlarged tonsils, odynophagia or nasal congestion Card: Denies: chest pain, palpitations, irregular heart rhythm, edema, swelling of feet/ankles, lightheadedness, pre-syncope, dyspnea on exertion or orthopnea Resp: Denies: dyspnea, productive cough, non-productive cough, wheezing, stridor, pain on inspiration, change in phlegm color, hemoptysis or chest congestion GI: Denies: abdominal pain, nausea, vomiting, hematemesis, coffee ground emesis, dysphagia, heartburn, diarrhea, constipation, GI cramping, change in stool character, hematochezia or melena : Denies: flank pain, difficulty voiding, dysuria, urinary frequency, urinary urgency, urinary hesitancy or hematuria Musc: Denies: neck pain, back pain, extremity pain, joint swelling, joint warmth or deformity Neuro: Denies: headache(s), numbness in extremities, weakness in extremities, sensory changes, difficulty walking, frequent falls, dizziness, vertigo, behavioral changes, Slurred speech present or seizure-like activity Psych: Denies: anxiety, depression, suicidal ideation or homicidal ideation Endo: Denies: polyuria, polydipsia, tired all the time, cold intolerance or hot flashes Darius/Lymph: Denies: easy bruising or easy bleeding Medications/Allergies Home Medications Medication Instructions Recorded Confirmed Last Taken Type cholecalciferol (vitamin D3) 125 5,000 unit PO BID 12/06/19 08/30/24 Unknown History mcg (5,000 unit) disintegrating tablet coenzyme Q10 100 mg capsule (Co 100 mg PO DAILY 06/18/21 08/30/24 Unknown History Q-10) Disposable nebulizer circuit with #1 ea 12/09/21 08/11/24 Unknown Rx mask cilostazol 100 mg tablet 100 mg PO BID #180 tabs 07/07/23 08/30/24 Unknown Rx nifedipine 60 mg tablet,extended 60 mg PO DAILY #30 tabs 03/22/24 08/11/24 Unknown Rx release 24 hr (Procardia XL) albuterol sulfate 2.5 mg/3 mL 2.5 mg (3 mL) inhalation Q4H PRN 06/07/24 08/30/24 Unknown Rx (0.083 %) solution for nebulization shortness of breath or wheezing #180 mL albuterol sulfate 90 mcg/actuation 2 puff inhalation Q6H PRN 06/07/24 08/30/24 Unknown Rx aerosol inhaler shortness of breath or wheezing #8.5 grams budesonide 0.5 mg/2 mL suspension 0.5 mg (2 mL) inhalation BID #60 mL 06/07/24 08/30/24 Unknown Rx for nebulization (Pulmicort) budesonide 160 mcg-glycopyr 9 2 inh inhalation BID #10.7 grams 06/07/24 08/30/24 Unknown Rx mcg-formot 4.8 mcg/actuation HFA inhaler (Breztri Aerosphere) furosemide 40 mg tablet (Lasix) 40 mg PO QAM #30 tabs 06/07/24 08/11/24 Unknown Rx magnesium oxide 400 mg PO BID #60 tabs 06/07/24 08/30/24 Unknown Rx clopidogrel 75 mg tablet 75 mg PO DAILY 06/29/24 08/30/24 Unknown History famotidine 40 mg tablet (Pepcid) 40 mg PO BID #30 tabs 07/04/24 08/30/24 Unknown Rx ondansetron 4 mg disintegrating 4 mg PO Q6H PRN nausea and 07/04/24 08/30/24 Unknown Rx tablet vomiting #30 tabs Wheel chair #1 ea 07/13/24 08/11/24 Unknown Rx buspirone 10 mg tablet 10 mg PO TID #90 tabs 07/13/24 08/30/24 Unknown Rx sertraline 50 mg tablet (Zoloft) 50 mg PO .2 times day #60 tabs 07/13/24 08/30/24 Unknown Rx dexamethasone 4 mg tablet 4 mg PO BID #40 tabs 08/29/24 08/30/24 Unknown Rx ondansetron 8 mg disintegrating 8 mg PO Q8H PRN nausea and 08/29/24 08/30/24 Unknown Rx tablet vomiting #90 tabs Allergies Allergy/AdvReac Type Severity Reaction Status Date / Time cefuroxime [From Ceftin] AdvReac Severe ADR-Gastrointestinal Verified 08/11/24 14:47 Upset PFSH Acute 2 PFSH: Medical History PAD (peripheral artery disease) Left displaced femoral neck fracture Murmur Personal history of nicotine dependence COPD (chronic obstructive pulmonary disease) Anxiety and depression Essential (primary) hypertension Vitamin D deficiency Mixed hyperlipidemia Surgical History S/P hip hemiarthroplasty History of breast biopsy Left Negative at age 20's Family History Family/Other Nicotine addiction Social History Smoking and tobacco/nicotine status: never used tobacco/nicotine Second hand smoke exposure: Yes Alcohol intake: never Substance/Drug Use: never Adopted: No Caregiver/support person: No Lives independently: Yes Household members: spouse Housing: House Marital status: Number of children: 6 service: No Current occupational status: unemployed Current occupational exposures/hazards: No Pets and animals: Yes Do you think of yourself as: Straight/Heterosexual Current gender identity: Female Vitals/I&O/Wt Last Vital Signs Temp 97.6 F 08/30/24 14:39 Pulse 105 H 08/30/24 17:30 Resp 22 H 08/30/24 17:30 BP 140/72 08/30/24 17:30 Pulse Ox 98 08/30/24 17:30 O2 Del Method Nasal Cannula 08/30/24 17:30 O2 Flow Rate 3.5 08/30/24 17:30 Weight last 48 hrs Weight 63.503 kg Physical Exam 2 Narrative: General: elderly frail ill appearing lady, tachypneic in conversation HEENT: PERRLA, pupils bilaterally equal and reactive, pallors not present Chest: Normal vesicular breath sounds, no added sounds, equal good air entry bilaterally CVS: S1-S2 regular, no murmurs, no tachycardia, no gallops, no rubs Neuro: No focal deficits, no facial deformity, AO x3, power 5/5 in all limb Data 08/30/24 15:20 08/30/24 15:20 Other Labs: Radiology Impressions Chest X-Ray 08/30/24 14:54 IMPRESSION: 1. No acute findings. 2. 7 mm right lower lung zone nodule corresponds to nodule of concern on recent PET-CT. Chest CTA 08/30/24 15:01 IMPRESSION: 1. Exam is positive for pulmonary emboli, predominantly in the left lung. 2. RV/LV ratio suggests elevated right heart pressure. 3. 8 mm right lower lobe nodule, suspicious for malignancy. 4. Enlarged mediastinal, hilar, and axillary lymphadenopathy. This is suspicious for malignancy. ADDENDUM: 08/30/24 1722 THIS REPORT CONTAINS FINDINGS THAT MAY BE CRITICAL TO PATIENT CARE. The findings were verbally communicated via telephone conference with ZACKERY JAMES at 5:20 PM CDT on 08/30/2024. The findings were acknowledged and understood. Head CT 08/30/24 17:58 IMPRESSION: 1. 4 mm hyperdense cortical lesion in the superior parafalcine right parietal lobe. This has decreased in size since 06/28/2024 and most likely represents a chronically hemorrhagic metastatic lesion. No acute/new hemorrhage identified. 2. Multiple metastatic lesions identified on the recent MRI are not well seen on this study. 3. Severe white matter disease, most likely microangiopathy. Laboratory Results WBC 6.30 10^3/uL (3.29-11.43) 08/30/24 15:20 RBC 4.54 10^6/uL (3.85-5.65) 08/30/24 15:20 Hgb 13.50 g/dL (11.27-16.99) 08/30/24 15:20 Hct 40.9 % (36-47) 08/30/24 15:20 MCV 90.1 fl (85-98) 08/30/24 15:20 MCH 29.7 pg (27-33) 08/30/24 15:20 MCHC 33.0 g/dL (30-55) 08/30/24 15:20 RDW 14.0 % (12.1-15.1) 08/30/24 15:20 Plt Count 188 10^3/cmm (157-399) 08/30/24 15:20 MPV 10.0 fL (7.4-10.4) 08/30/24 15:20 Neut % (Auto) 90.6 % 08/30/24 15:20 Lymph % (Auto) 5.9 % 08/30/24 15:20 Island % (Auto) 1.9 % 08/30/24 15:20 Eos % (Auto) 0.0 % 08/30/24 15:20 Baso % (Auto) 0.2 % 08/30/24 15:20 Neut # (Auto) 5.71 10^3/uL (1.8-7.7) 08/30/24 15:20 Lymph # (Auto) 0.4 10^3/uL (0.8-4.8) L 08/30/24 15:20 Island # (Auto) 0.1 10^3/uL (0.2-0.9) L 08/30/24 15:20 Eos # (Auto) 0.0 10^3/uL (0.0-0.8) 08/30/24 15:20 Baso # (Auto) 0.0 10^3/uL (0.0-0.1) 08/30/24 15:20 Nucleated RBC % (auto) 0 % 08/30/24 15:20 Nucleated RBCs # 0.0 /100WBC 08/30/24 15:20 Specimen Type Arterial 08/30/24 14:54 Sample Site Radial, right 08/30/24 14:54 ABG pH 7.49 (7.35-7.45) H 08/30/24 14:54 ABG pCO2 40.3 mmHg (35-45) 08/30/24 14:54 ABG pO2 75.5 mmHg (80.0-100.0) L 08/30/24 14:54 ABG HCO3 30.3 mmol/L (22-26) H 08/30/24 14:54 ABG Base Excess 6.3 mmol/L (-2.0-2.0) H 08/30/24 14:54 Abisai Test Pos 08/30/24 14:54 Hematocrit 41.0 % (37-47) 08/30/24 14:54 Hgb O2 Saturation 94.5 % (95-100) L 08/30/24 14:54 Carboxyhemoglobin 1.5 %THgb (0.4-20.1) 08/30/24 14:54 Methemoglobin 1.1 % (0.4-1.5) 08/30/24 14:54 Total Hemoglobin 13.4 g/dL (12-16) 08/30/24 14:54 O2 Delivery Device Nc 08/30/24 14:54 O2 Liters/Min 5.0 % 08/30/24 14:54 Tank Builder And Erector ID [place] 08/30/24 14:54 Sodium 141 mmol/L (136-145) 08/30/24 15:20 Potassium 3.8 mmol/L (3.5-5.1) 08/30/24 15:20 Chloride 99 mmol/L (98-107) 08/30/24 15:20 Carbon Dioxide 30 mmol/L (22-29) H 08/30/24 15:20 Anion Gap 15.8 (5-19) 08/30/24 15:20 BUN 27 mg/dL (8-23) H 08/30/24 15:20 Creatinine 0.9 mg/dL (0.5-0.9) 08/30/24 15:20 GFR Calculation Not Reportable 08/30/24 15:20 Glucose 168 mg/dL (65-115) H 08/30/24 15:20 Calculated Osmolality 301 mOsm/kg (285-295) H 08/30/24 15:20 Lactic Acid 1.9 mmol/L (0.5-2.2) 08/30/24 15:20 Calcium 8.8 mg/dL (8.5-10.5) 08/30/24 15:20 Total Bilirubin 0.8 mg/dL (0.15-1.2) 08/30/24 15:20 AST 22 U/L (0-32) 08/30/24 15:20 ALT 12 U/L (0-33) 08/30/24 15:20 Alkaline Phosphatase 108 U/L (35-105) H 08/30/24 15:20 Troponin T Baseline 32 ng/L (0-10) H 08/30/24 15:20 Troponin T 120 Minute 25.92 ng/L (0-10) H 08/30/24 17:42 Delta Troponin T -6.08 ABS# (0-10) L 08/30/24 17:42 Troponin T Hi Sens 6Hr 24.89 ng/L (0-10) H 08/30/24 21:45 Troponin T Hi Sens 6Hr Delta -7.11 ng/L (0-12) L 08/30/24 21:45 NT-Pro-B Natriuret Pep 988 pg/mL (0-450) H 08/30/24 15:20 Total Protein 6.3 g/dL (6.6-8.7) L 08/30/24 15:20 Albumin 3.5 g/dL (3.5-5.2) 08/30/24 15:20 Globulin 2.8 g/dL (1.3-4.6) 08/30/24 15:20 Coronavirus (PCR) Negative (Negative) 08/30/24 15:16 Influenza A (PCR) Negative (Negative) 08/30/24 15:16 Influenza Type B (PCR) Negative (Negative) 08/30/24 15:16 RSV (PCR) Negative (Negative) 08/30/24 15:16 A&P Assessment and plan (1) Pulmonary embolism: (2) Intracranial mass: (3) Multiple lung nodules: (4) Lymphadenopathy, mediastinal: (5) Axillary lymphadenopathy: Plan 79 year old lady recently diagnosed with brain metastasis, lung nodules, axillary and mediastinal LAD presumed to be lung ca with brain metastasis She has undergone WBRT for the same Last MRI from 07/2024 showing multiple metaststaic lesions whic are hemosiderin laden, consistent with past hemorrhage Presenting today with worsening dyspnea and found to have B/L PE ; left worse than right with likely right heart strain Echocardiogram ordered to assess the same. She has received heparin bolus and started on heparin gtt per weight based protocol for treatment of PE. Requested CT head to establish baseline and assess for any current hemorrhage prior to continuing heparin CT head shows old chronically hemorrhagic lesions without any acute bleeding Discussed extensively with family at bedside ( + Sons) that this is a very grave situation. On one hand there is symptoms of dyspnea, hypoxia , tachycardia related to extensive left side PE with suggestion of right heart strain that needs anticoagulation. On the other there are hemorrhagic brain mets that are at high risk of bleeding with anticoagulation. Discussed that at this present time, the benefits of anticoagulation outweigh the potential risk of bleeding. Weighing the risks and benefits, family is agreeable to proceed with anticoagulation with heparin drip at this time. We will admit patient to [facility] Continous telemetry monitoring Neurochecks q2h due to high risk of bleeding and need for close neuro monitoring. Stat CT head with any change in mentation/ neuro exam. Will attempt to obtain lymph node biopsy while inpatient to help establish primary malignancy Hold Plavix. Uncertain of the indication at this time - per family she has been off cilostazol and plavix recently for anticipated biopsy. Will continue to hold these medications to minimize risk of potential bleeding. continue scheduled nebulization with duoneb and budesonide continue home dose of dexamethasone 4mg BID Attestations 2 Medical Necessity Statement*: > 2 midnight admission is anticipated for high risk anticoagulation for pulmonary embolism. Critical Care Time: The high probability of a clinically significant, sudden or life threatening deterioration of the patient's [neuro, pulmonary,cardiovascular] system(s) required my full and direct attention, intervention and personal management. The critical care time is as shown. This time is in addition to time spent performing any reported procedures but includes the following: [x] Data and vital sign review and interpretation [x] Patient assessment, examination and intervention [x] Documentation [x] Medication orders and management Critical Care Time (min): 55 Coding Level of Care Code Critical Care >/= 30 minutes Diagnoses Pulmonary embolism I26.99 Intracranial mass R90.0 Multiple lung nodules R91.8 Lymphadenopathy, mediastinal R59.0 Axillary lymphadenopathy R59.0
--- NOTE | 2024-08-30 17:51 | USCV_ITS ---
Heather Ramesh Age: 79 Gender: F : 1945 Exam Date: 08/30/2024 18:57 Ordering Phys: Dania Smith MD Technologist: DOLORES Exam Location: [facility] [place] Indication: assess right heart strain with pulmonary embolus SOB, COPD, lung CA, long-term smoker continues smoking, O2 dependent BP: 140 / 72 HR: 97 Rhythm: Sinus Technical Quality: Adequate MEASUREMENTS (Male / Female) Normal Values 2D ECHO LV Diastolic Diameter PLAX 4.0 cm 4.2 - 5.9 / 3.9 - 5.3 cm IVS Diastolic Thickness 1.2 cm 0.6 - 1.0 / 0.6 - 0.9 cm IVS Systolic Thickness 2.0 cm LVPW Diastolic Thickness 1.6 cm 0.6 - 1.0 / 0.6 - 0.9 cm LVPW Systolic Thickness 1.6 cm LVOT Diameter 2.2 cm LV Ejection Fraction 2D Teich 66.1 % LV Ejection Fraction MOD 4C 57.2 % LV Ejection Fraction MOD 2C 67.4 % LV Ejection Fraction 2C AL 72.0 % LA Diameter 3.4 cm Aorta at Sinotubular Diameter 2.7 cm IVC Diameter 1.6 cm M-MODE LA Ao Ratio MM 1.3 AV Cusp Separation MM 1.1 cm DOPPLER AV Peak Velocity 351.0 cm/s LVOT Peak Velocity 153.0 cm/s AV Area Cont Eq vti 1.7 cm squared AV Area Cont Eq pk 1.6 cm squared MV Peak Velocity 174.0 cm/s MV Area PHT 3.9 cm squared Mitral E to A Ratio 0.6 TR Peak Velocity 310.0 cm/s TR Peak Gradient 38.4 mmHg TV Peak E Velocity 53.0 cm/s Right Atrial Pressure 3.0 mmHg Pulmonary Artery Systolic Pressu 41.4 mmHg PV Peak Velocity 114.0 cm/s FINDINGS Left Ventricle Mild left ventricular hypertrophy. Normal LV systolic function. No regional wall motion abnormalities. Estimated LVEF 65%. Right Ventricle Normal right ventricular size. Right Atrium Normal right atrial size. Left Atrium Normal left atrial size. Mitral Valve Mildly thickened mitral valve. No mitral valve stenosis. Trace mitral valve regurgitation. Aortic Valve Thickened and calcified aortic valve. There is mild aortic stenosis (peak gradient 45 mmHg, mean gradient 25 mmHg, AV max 3.2 m/s, calculated aortic valve area 1.7 cm squared) Tricuspid Valve Mildly thickened valve. Mild tricuspid regurgitation. TR peak gradient 38 mmHg. Pulmonic Valve Structurally normal pulmonic valve. Trace pulmonary valve regurgitation. Pericardium No pericardial effusion. Aorta Normal size aortic root and proximal ascending aorta. IVC Normal inferior vena cava. CONCLUSIONS Mild left ventricle hypertrophy. Normal LV systolic function. Estimated EF normal 65%. Normal-sized RV with good RV systolic function. Mildly thickened mitral valve with trace regurgitation. Thickened and calcified aortic valve with mild aortic stenosis (peak gradient 45 mmHg, mean gradient 25 mmHg, AV max 3.2 m/s, calculated aortic valve area 1.7 cm squared). Moderately elevated pulmonary pressure (42 mmHg). Nilson Arana MD (Electronically Signed) Final Date: 31 August 2024 10:09 S
[2024-08-30] MEDS: heparin 5,000 unit/mL INJ 1 mL IVP (17:53)
--- NOTE | 2024-08-30 17:58 | CTR_ITS ---
PROCEDURE INFORMATION: Exam: CT Head Without Contrast Exam date and time: 08/30/2024 6:10 PM Age: 79 years old Clinical indication: Other: Assess for hemorrage; Patient HX: Assess for hemorrhage, hemorrhagic brain mets from lung CA currently on heparin; Additional info: Assess for hemorrhage, hemorrhagic brain mets from lung cancer currently on heparin TECHNIQUE: Imaging protocol: Computed tomography of the head without contrast. Radiation optimization: All CT scans at this facility use at least one of these dose optimization techniques: automated exposure control; mA and/or kV adjustment per patient size (includes targeted exams where dose is matched to clinical indication); or iterative reconstruction. COMPARISON: 1. MR head wo/w con [id number] 07/26/2024 1:[address] head wo con* [id number] 06/28/2024 3:46 PM RADIATION DOSE METRICS: Total DLP (mGy-cm): 1079.48 FINDINGS: Brain: Severe confluent hypodensities throughout the supratentorial periventricular and subcortical white matter. Mild diffuse cortical volume loss. Smaller 4 mm hyperdense cortical lesion in the superior parafalcine right parietal lobe. Cerebral ventricles: No ventriculomegaly. Paranasal sinuses: Visualized sinuses are unremarkable. No fluid levels. Mastoid air cells: Visualized mastoid air cells are well aerated. Bones: Unremarkable. No acute fracture. Soft tissues: Unremarkable. Vasculature: There is faint contrast material in the vascular system due to recent CT imaging. CT/CT head wo con* [id number] IMPRESSION: 1. 4 mm hyperdense cortical lesion in the superior parafalcine right parietal lobe. This has decreased in size since 06/28/2024 and most likely represents a chronically hemorrhagic metastatic lesion. No acute/new hemorrhage identified. 2. Multiple metastatic lesions identified on the recent MRI are not well seen on this study. 3. Severe white matter disease, most likely microangiopathy.
[2024-08-30 18:22] LABS: Troponin 5 2HR 25.92 ng/L (0-10)
[2024-08-30 18:26] LABS: Troponin 5 2HR Delta -6.08 ABS# (0-10)
--- NOTE | 2024-08-30 18:47 | PC.NURSE ---
[facility] doctor voiced to stop heparin drip at this time and hold until CT head scans.
[2024-08-30] MEDS: dexamethasone 4 mg Tablet PO (19:54)
[2024-08-30] MEDS: heparin drip 25,000 UNIT/500 ML PREMIX 18 UNIT IV (19:55)
[2024-08-30] MEDS: budesonide 0.5 mg/2 mL Neb INHALATION (21:08)
--- NOTE | 2024-08-30 21:17 | PC.NURSE ---
attempted med rec. pt and family unable to tell me what meds pt was currently taking. pt family advised to bring bottles in tomorrow.
--- NOTE | 2024-08-30 21:30 | ECG_ITS ---
[facility]: 2024-[facility]31 Pat Name: Heather Ramesh Department: Room: 105 Gender: Female Jv [employer] Coach: : 1945 Requested By: Mansoor Quiroga Order Number: [id number] Oumar MD: Nilson Arana M.D. Measurements Intervals [place] Rate: 88 P: 54 ND: 121 QRS: 59 QRSD: 86 T: 73 QT: 350 QTc: 425 Interpretive Statements SINUS RHYTHM WITH SINUS ARRHYTHMIA POSSIBLE LEFT ATRIAL ENLARGEMENT [-0.1mV P-WAVE IN V1/V2] Compared to ECG 08/30/2024 17:26:14 Sinus tachycardia no longer present Ventricular premature complex(es) no longer present Electronically Signed On 08-31-2024 18:10:44 CDT by Nilson Arana M.D. [email or web address]
[2024-08-30] MEDS: BuSPIRONE 10 mg Tablet PO (21:40)
[2024-08-30 22:16] LABS: Troponin 5 6HR 24.89 ng/L (0-10)
[2024-08-30 22:21] LABS: Troponin 5 6HR Delta -7.11 ng/L (0-12)
[2024-08-31] VITALS (14 sets, daily range): BP systolic 112–165; BP diastolic 52–93; PULSE 88–101; RESP 18–23; TEMP 36.4–36.9; O2SAT 90–98
[2024-08-31] MEDS: ipratropium-albuterol 3 mL Neb INHALATION ×4 (02:19→21:58)
[2024-08-31 02:33] LABS: Hematocrit 36.7 % (36-47); Lymphocytes # 0.3 10^3/uL (0.8-4.8); Lymphocytes % 5.7 %; Mean Corpuscular HGB Conc 32.7 g/dL (30-55); Mean Corpuscular Volume 91.8 fl (85-98); Mean Platelet Volume 9.6 fL (7.4-10.4); Monocytes # 0.1 10^3/uL (0.2-0.9); Monocytes % 1.2 %; Neutrophils # 5.43 10^3/uL (1.8-7.7); Neutrophils % 91.7 %; Nucleated Red Blood Cells % 0 %; Platelet Count 172 10^3/cmm (157-399); Red Cell Distribution Width 13.7 % (12.1-15.1); White Blood Count 5.92 10^3/uL (3.29-11.43)
[2024-08-31 02:56] LABS: Partial Thromboplastin Time 79.8 SECONDS (23.9-36.7)
[2024-08-31 03:03] LABS: Alanine Aminotransferase 9 U/L (0-33); Albumin Level 3.2 g/dL (3.5-5.2); Alkaline Phosphatase 85 U/L (35-105); Aspartate Amino Transferase 13 U/L (0-32); Blood Urea Nitrogen 24 mg/dL (8-23); Calcium 8.5 mg/dL (8.5-10.5); Carbon Dioxide 30 mmol/L (22-29); Chloride 108 mmol/L (98-107); Creatinine Clr Calc Pharmacy 54.3212; Globulin 2.4 g/dL (1.3-4.6); Glucose 195 mg/dL (65-115); Osmolality Calculated 307 mOsm/kg (285-295); Sodium 144 mmol/L (136-145); Total Bilirubin 0.4 mg/dL (0.15-1.2); Total Protein 5.6 g/dL (6.6-8.7)
[2024-08-31] MEDS: budesonide 0.5 mg/2 mL Neb INHALATION ×2 (08:01→21:58)
[2024-08-31] MEDS: pantoprazole DR 40 mg Tablet PO (08:57)
[2024-08-31] MEDS: BuSPIRONE 10 mg Tablet PO ×2 (08:57→22:06)
[2024-08-31] MEDS: atorvastatin 40 mg Tablet PO (08:57)
[2024-08-31] MEDS: NIFEdipine ER (24 hr) 30 mg Tablet 60 MG PO (08:57)
[2024-08-31] MEDS: dexamethasone 4 mg Tablet PO ×2 (09:21→18:15)
[2024-08-31 09:54] LABS: Partial Thromboplastin Time 51.8 SECONDS (23.9-36.7)
--- NOTE | 2024-08-31 09:56 | PC.CHAP ---
Pastoral Care Encounter/Spiritual Assessment Type of Contact [] Declined regulatory and compliance technician visit [] Patient/Family/Request visit [] Outpatient visit [] Follow-up visit [] Physician referral [] Code/Alert [] Routine visit [] Staff referral [] Actively dying [] Patient sleeping [] Family support [] [] Out of room [] Palliative care [] [x] Receiving care in room [] Pre-surgical visit [] Trauma [] Long length of stay [] ICU visit [] Other: Relational/Emotional Strength [] Patient feels connected with others/family/visitors/staff [] Distress [] Loneliness/isolation [] Abandonment Spirituality of Patient [] Person of Mame [] Attends Presybeterian of their Mame [] Believes in Prayer [] Reads Bible or Sabianism materials [] There are Spiritual issues to be addressed [employer] Interventions [] Prayer [] Active listening [] Non-anxious presence [] Spiritual/emotional support [] Crisis/trauma care [] Spiritual counseling [] Bereavement support [] Provided bereavement packet [] Provided Bible/devotional materials [] Provided toy/stuffed animal, coloring book to patient or family member [] Provided Communion [] Anointing/[place] [] Salvation [] Completed spiritual assessment [] Other: Impact on Illness or Injury [] Angry [] Fearful [] Anxious [] Often cries [] Exhaustion [] Unable to work [] Unable to attend shinto [] Unable to walk/stand [] Unable to read [] Unable to drive [] Unable to eat/drink [] Unable to sleep [] Unable to be with family [] Patient intubated [] Other: Summary Time spent with patient
[2024-08-31 18:02] LABS: Partial Thromboplastin Time 83.2 SECONDS (23.9-36.7)
[2024-08-31] MEDS: heparin drip 25,000 UNIT/500 ML PREMIX 17 UNIT IV (18:16)
--- NOTE | 2024-08-31 18:40 | CTR_ITS ---
PROCEDURE INFORMATION: Exam: CT Head Without Contrast Exam date and time: 08/31/2024 10:23 PM Age: 79 years old Clinical indication: Condition or disease; Cancer; Metastatic or secondary malignancy of brain; Additional info: Assess for bleeding, brain mets, currently on heparin gtt for large burden pe. CT TECHNIQUE: Imaging protocol: Computed tomography of the head without contrast. Radiation optimization: All CT scans at this facility use at least one of these dose optimization techniques: automated exposure control; mA and/or kV adjustment per patient size (includes targeted exams where dose is matched to clinical indication); or iterative reconstruction. COMPARISON: CT head wo con* [id number] 08/30/2024 6:10 PM RADIATION DOSE METRICS: Total DLP (mGy-cm): 327.56 FINDINGS: Brain: There are bilateral periventricular white matter and centrum semiovale hypodensities, consistent with chronic ischemic small vessel disease. No recent infarct, intracranial bleed or mass effect. Stable hyperdense 4 mm lesion in the superior right parietal parafalcine area. Hyperdensity at the anterior aspect of the right temporal pole measuring 4 mm, similar to prior study. No mass effect. No large territorial infarct. No recent bleed. Cerebral ventricles: No ventriculomegaly. Paranasal sinuses: Visualized sinuses are unremarkable. No fluid levels. Mastoid air cells: Visualized mastoid air cells are well aerated. Bones: Unremarkable. No acute fracture. Soft tissues: Unremarkable. CT/CT head wo con* [id number] IMPRESSION: 1. Stable hyperdense lesions in the right temporal lobe and right parietal lobe measuring 4 mm. 2. No new lesion, mass effect, intracranial bleed or large territorial infarct.
--- NOTE | 2024-08-31 18:45 | P.PN_ITS ---
Subjective 2 Subjective: Feels symptomatically better. Oxygen requirement at 2 L/min today. This is her baseline. Chronically on 2 L/min. States that her breathing is better, however noted to be tachypneic while attempting to complete full sentences. Continuing heparin anticoagulation. No new neurodeficits. Medications: Reviewed: Yes Vitals/I&O/Wt Last Vital Signs Temp 97.6 F 08/31/24 16:00 Pulse 93 08/31/24 16:00 Resp 22 H 08/31/24 16:00 BP 122/57 08/31/24 16:00 Pulse Ox 90 08/31/24 16:00 O2 Del Method Nasal Cannula 08/31/24 16:00 O2 Flow Rate 2 08/31/24 14:14 08/31/24 08/31/24 08/31/24 06:59 14:59 22:59 Intake Total 728.4 / 1728.4 720.983 / 720.983 145.8 / 866.783 Balance 728.4 / 1728.4 720.983 / 720.983 145.8 / 866.783 Weight last 48 hrs Weight 67.903 kg Weight 65.363 kg Weight 63.503 kg Physical Exam 2 Narrative: General: elderly frail ill appearing lady, tachypneic in conversation HEENT: PERRLA, pupils bilaterally equal and reactive, pallors not present Chest: Normal vesicular breath sounds, no added sounds, equal good air entry bilaterally CVS: S1-S2 regular, no murmurs, no tachycardia, no gallops, no rubs Neuro: No focal deficits, no facial deformity, AO x3, power 5/5 in all limb Data 08/31/24 02:20 08/31/24 02:20 A&P Assessment and plan (1) Pulmonary embolism: (2) Intracranial mass: (3) Multiple lung nodules: (4) Lymphadenopathy, mediastinal: (5) Axillary lymphadenopathy: Plan 79 year old lady recently diagnosed with brain metastasis, lung nodules, axillary and mediastinal LAD presumed to be lung ca with brain metastasis She has undergone WBRT for the same Last MRI from 07/2024 showing multiple metaststaic lesions whic are hemosiderin laden, consistent with past hemorrhage Presenting today with worsening dyspnea and found to have B/L PE ; left worse than right with likely right heart strain Echocardiogram ordered to assess the same. She has received heparin bolus and started on heparin gtt per weight based protocol for treatment of PE. Requested CT head to establish baseline and assess for any current hemorrhage prior to continuing heparin CT head shows old chronically hemorrhagic lesions without any acute bleeding Discussed extensively with family at bedside ( + Sons) that this is a very grave situation. On one hand there is symptoms of dyspnea, hypoxia , tachycardia related to extensive left side PE with suggestion of right heart strain that needs anticoagulation. On the other there are hemorrhagic brain mets that are at high risk of bleeding with anticoagulation. Discussed that at this present time, the benefits of anticoagulation outweigh the potential risk of bleeding. Weighing the risks and benefits, family is agreeable to proceed with anticoagulation with heparin drip at this time. We will admit patient to [facility] Continous telemetry monitoring Neurochecks q2h due to high risk of bleeding and need for close neuro monitoring. Stat CT head with any change in mentation/ neuro exam. Will attempt to obtain lymph node biopsy while inpatient to help establish primary malignancy Hold Plavix. Uncertain of the indication at this time - per family she has been off cilostazol and plavix recently for anticipated biopsy. Will continue to hold these medications to minimize risk of potential bleeding. continue scheduled nebulization with duoneb and budesonide continue home dose of dexamethasone 4mg BID August 31, 2024 Continuing anticoagulation with heparin today. No new neurological deficits. Family extremely concerned about potential bleed while on heparin, will order CT of the head without contrast at the 24-hour nikki to assess for any new bleed. Thus far neurological exam appears to be reassuring. Discussed with radiology regarding possibility of axillary lymph node biopsy while patient is currently admitted to expedite her cancer diagnosis. It appears her lymph node biopsy was scheduled as outpatient but then got deferred as the Plavix was not on hold. It has not been able to be rescheduled since then. I am afraid that once she transitions from heparin to oral anticoagulation, her biopsy may be deferred further since interruption with DOAC for 48 hrs may not be an option for a few weeks on account of PE. IR agreeable to performing lymph node biopsy whileadmitted. We will plan to temporarily interrupt the heparin drip for 4 to 6 hours prior to the procedure and resume afterwards. This would likely be best perfromed with at least 48 hours of anticoagulation on board as interruption with heparin may potentially put her at risk for worsening PE. Continue to hold Plavix and cilostazol to minimize risk of bleeding. Attestations 2 Medical Necessity Statement*: continued admission for heparin anticoagulation, PE, lymph node biopsy Coding Level of Care Code Acute Code for Chg Fwd High MDM includes number and complexity of problems actively addressed during encounter, amount and/or complexity of data reviewed/ordered and described risk of complication, morbidity or mortality of management as documented Diagnoses Pulmonary embolism I26.99 Intracranial mass R90.0 Multiple lung nodules R91.8 Lymphadenopathy, mediastinal R59.0 Axillary lymphadenopathy R59.0
[2024-08-31] MEDS: quetiapine 25 mg Tablet PO (22:06)
[2024-08-31 22:31] LABS: Partial Thromboplastin Time 69.5 SECONDS (23.9-36.7)
[2024-09-01] VITALS (13 sets, daily range): BP systolic 109–138; BP diastolic 60–78; PULSE 84–99; RESP 16–24; TEMP 36.4–36.9; O2SAT 93–96
[2024-09-01] MEDS: ipratropium-albuterol 3 mL Neb INHALATION ×3 (02:13→20:23)
[2024-09-01 03:53] LABS: Basophils % 0.1 %; Hematocrit 36.5 % (36-47); Lymphocytes # 0.5 10^3/uL (0.8-4.8); Lymphocytes % 5.1 %; Mean Corpuscular HGB Conc 32.3 g/dL (30-55); Mean Corpuscular Hemoglobin 29.6 pg (27-33); Mean Corpuscular Volume 91.7 fl (85-98); Mean Platelet Volume 9.7 fL (7.4-10.4); Monocytes # 0.3 10^3/uL (0.2-0.9); Monocytes % 2.8 %; Neutrophils # 8.67 10^3/uL (1.8-7.7); Neutrophils % 91.1 %; Nucleated Red Blood Cells % 0 %; Platelet Count 198 10^3/cmm (157-399); Red Blood Count 3.98 10^6/uL (3.85-5.65); Red Cell Distribution Width 14.2 % (12.1-15.1); White Blood Count 9.53 10^3/uL (3.29-11.43)
[2024-09-01 04:10] LABS: Partial Thromboplastin Time 100.7 SECONDS (23.9-36.7)
[2024-09-01 04:34] LABS: Alanine Aminotransferase 11 U/L (0-33); Albumin Level 3.2 g/dL (3.5-5.2); Alkaline Phosphatase 80 U/L (35-105); Anion Gap 12.1 (5-19); Aspartate Amino Transferase 16 U/L (0-32); Blood Urea Nitrogen 22 mg/dL (8-23); Calcium 8.7 mg/dL (8.5-10.5); Carbon Dioxide 27 mmol/L (22-29); Chloride 107 mmol/L (98-107); Creatinine Clr Calc Pharmacy 55.2357; Globulin 2.2 g/dL (1.3-4.6); Glucose 147 mg/dL (65-115); Osmolality Calculated 300 mOsm/kg (285-295); Potassium 4.1 mmol/L (3.5-5.1); Sodium 142 mmol/L (136-145); Total Bilirubin 0.4 mg/dL (0.15-1.2); Total Protein 5.4 g/dL (6.6-8.7)
[2024-09-01] MEDS: NIFEdipine ER (24 hr) 30 mg Tablet 60 MG PO (07:30)
[2024-09-01] MEDS: atorvastatin 40 mg Tablet PO (07:30)
[2024-09-01] MEDS: pantoprazole DR 40 mg Tablet PO (07:31)
[2024-09-01] MEDS: dexamethasone 4 mg Tablet PO ×2 (07:31→15:21)
[2024-09-01] MEDS: BuSPIRONE 10 mg Tablet PO ×3 (07:31→21:11)
[2024-09-01 11:09] LABS: Partial Thromboplastin Time 78.1 SECONDS (23.9-36.7)
--- NOTE | 2024-09-01 12:28 | PM.PN ---
Subjective Subjective: No complaints today on home dose oxygen Vitals/I&O/Wt Last Vital Signs Temp 98.0 F 09/01/24 11:37 Pulse 90 09/01/24 11:37 Resp 18 09/01/24 11:37 BP 138/77 09/01/24 11:37 Pulse Ox 94 09/01/24 11:37 O2 Del Method Nasal Cannula 09/01/24 11:37 O2 Flow Rate 2 09/01/24 11:37 08/31/24 09/01/24 09/01/24 22:59 06:59 14:59 Intake Total 224.0 / 944.983 96.9 / 1041.883 328.183 / 328.183 Output Total 550 / 550 Balance 224.0 / 944.983 96.9 / 1041.883 -221.817 / -221.817 Weight last 48 hrs Weight 67.903 kg Weight 67.903 kg Weight 65.363 kg Weight 63.503 kg Physical Exam Narrative: Appears older than her stated age no acute distress she does have dyspnea with conversation but she does not report discomfort Heart regular normal S1-S2 without murmurs clicks gallops or rubs Lungs diffusely diminished breath sounds with scattered wheezes and rhonchi poor expiratory phase Abdomen soft nontender nondistended positive bowel sounds Extremities thin no edema Data 09/01/24 03:40 09/01/24 03:40 A&P Assessment and plan (1) Pulmonary embolism: Currently on heparin will stop heparin prior to lymph node biopsy and start on Eliquis subsequently Qualifiers: Pulmonary embolism type: other Chronicity: acute Acute cor pulmonale presence: without acute cor pulmonale Qualified Code(s): I26.99 - Other pulmonary embolism without acute cor pulmonale (2) Intracranial mass: Approximately 5 brain mets identified on MRI (3) Multiple lung nodules: Mediastinal, hilar and axillary lymphadenopathy PET scan shows 1 right lower lobe nodule suspicious for malignancy (4) Lymphadenopathy, mediastinal: (5) Axillary lymphadenopathy: Plan 79 year old lady recently diagnosed with brain metastasis, lung nodules, axillary and mediastinal LAD presumed to be lung ca with brain metastasis She has undergone WBRT for the same Last MRI from 07/2024 showing multiple metaststaic lesions whic are hemosiderin laden, consistent with past hemorrhage Patient diagnosed with PE with considerable clot burden and lobar and segmental and subsegmental segmental branches of the pulmonary veins. Left lung greater than right lung CT head shows old chronically hemorrhagic lesions without any acute bleeding Discussed extensively with family at bedside ( + Sons) that this is a very grave situation. On one hand there is symptoms of dyspnea, hypoxia , tachycardia related to extensive left side PE with suggestion of right heart strain that needs anticoagulation. On the other there are hemorrhagic brain mets that are at high risk of bleeding with anticoagulation. Discussed that at this present time, the benefits of anticoagulation outweigh the potential risk of bleeding. Weighing the risks and benefits, family is agreeable to proceed with anticoagulation with heparin drip at this time. Lymph node biopsy scheduled for September 02 09/01/2024: Continue current treatment plan for lymph node biopsy tomorrow. [facility] Attestations Medical Necessity Statement*: continued admission for heparin anticoagulation, PE, lymph node biopsy Coding Level of Care Code Acute Code for Chg Fwd Diagnoses Other acute pulmonary embolism without acute cor pulmonale I26.99 Pulmonary embolism type: other Chronicity: acute Acute cor pulmonale presence: without acute cor pulmonale Intracranial mass R90.0 Multiple lung nodules R91.8 Lymphadenopathy, mediastinal R59.0 Axillary lymphadenopathy R59.0
[2024-09-01 18:57] LABS: Partial Thromboplastin Time 71.9 SECONDS (23.9-36.7)
[2024-09-01] MEDS: budesonide 0.5 mg/2 mL Neb INHALATION (20:23)
[2024-09-01] MEDS: heparin drip 25,000 UNIT/500 ML PREMIX 12 UNIT IV (21:11)
[2024-09-01] MEDS: quetiapine 25 mg Tablet PO (21:11)
[2024-09-02] VITALS (9 sets, daily range): BP systolic 134–159; BP diastolic 64–86; PULSE 83–101; RESP 16; TEMP 36.6–36.7; O2SAT 90–96
[2024-09-02 01:19] LABS: Partial Thromboplastin Time 93.7 SECONDS (23.9-36.7)
--- NOTE | 2024-09-02 06:00 | US_ITS ---
WS: [id number] Ultrasound-guided LEFT axillary lymph node biopsy INDICATION: Malignancy with brain metastasis TECHNIQUE: The procedure including risks, benefits, and complications were discussed with the patient who agreed to proceed. Timeout was performed and authenticated by patient and team members present. Using sterile technique, patient was prepped and draped in usual sterile fashion. After 1% lidocaine, using ultrasound guidance, 2 14-gauge cores were obtained and placed in RPMI solution. An additional 3 cores were obtained and placed in formalin. No immediate complications. US/US biopsy lymph node [id number] IMPRESSION: Uncomplicated ultrasound-guided LEFT axillary lymph node biopsy. Pa thology is pending.
[2024-09-02] MEDS: atorvastatin 40 mg Tablet PO (08:31)
[2024-09-02] MEDS: BuSPIRONE 10 mg Tablet PO ×2 (08:31→14:24)
[2024-09-02] MEDS: NIFEdipine ER (24 hr) 30 mg Tablet 60 MG PO (08:31)
[2024-09-02] MEDS: pantoprazole DR 40 mg Tablet PO (08:31)
[2024-09-02] MEDS: dexamethasone 4 mg Tablet PO (08:31)
[2024-09-02 08:39] LABS: Partial Thromboplastin Time 86.4 SECONDS (23.9-36.7)
[2024-09-02] MEDS: budesonide 0.5 mg/2 mL Neb INHALATION (08:51)
[2024-09-02] MEDS: ipratropium-albuterol 3 mL Neb INHALATION (08:51)
--- NOTE | 2024-09-02 08:57 | PC.NURSE ---
Dr Bose into see patient. Stopped heparin drip at this time in anticipation of lymp biopsy per MD.
--- NOTE | 2024-09-02 13:53 | PC.NURSE ---
Dr Ramon Sanchez into perform axillary biopsy. Time out completed prior to procedure. patient tolerated well.
--- NOTE | 2024-09-02 14:19 | P.DS_ITS ---
Discharge Providers Date of Admission: 08/30/24 18:34 Date of Discharge: September 02, 2024 Attending Provider at Admission: Dania Smith MD Attending Provider at Discharge: Jeanmarie Clemens DO Primary Care Provider: SULEMAN Dawkins Diagnoses at Discharge Discharge Diagnosis (1) Pulmonary embolism: Status: Acute Qualifiers: Acute cor pulmonale presence: without acute cor pulmonale Chronicity: acute Pulmonary embolism type: other Qualified Code(s): I26.99 - Other pulmonary embolism without acute cor pulmonale (2) Intracranial mass: Status: Acute (3) Multiple lung nodules: Status: Acute (4) Lymphadenopathy, mediastinal: Status: Acute (5) Axillary lymphadenopathy: Status: Acute Reason for Visit Reason for Visit: congestive Brief History: Heather Ramesh is a 79 year old female with significant past medical history for hypertension, PVD and COPD diagnosed with malignant neoplasm of the right bronchus and lung with hemorrhagic brain metastases currently on radiation whole brain. She presented to the emergency room today with increasing shortness of breath over the last 4-5 days. She was hypoxic, currently on 3.5 L/min supplemental O2. She is tachypneic and tachycardic. She has been found to have B/L PE, L> R. Thus far received heparin bolus in the emergency room and started heparin gtt Denies any fever chills nausea or vomiting. reveiw of chart shows a recent diagnosis of metastatic brain lesions as noted below , which are presumed to be a pulmonary source at this time. Patient is yet to have a tissue diagnosis. She has a right LL pulmonary nodule and axillary and medicatsinal LAD. It appears there has been plan to biopsy the Lymph node with IR as outpatient but this is yet to happen. She has been receiving WBRT , is scheduled to get a port soon. Hospital Course Hospital Course 79 year old lady recently diagnosed with brain metastasis, lung nodules, axillary and mediastinal LAD presumed to be lung ca with brain metastasis She has undergone WBRT for the same Last MRI from 07/2024 showing multiple metaststaic lesions whic are hemosiderin laden, consistent with past hemorrhage Presenting today with worsening dyspnea and found to have B/L PE ; left worse than right with likely right heart strain Echocardiogram ordered to assess the same. She has received heparin bolus and started on heparin gtt per weight based protocol for treatment of PE. Requested CT head to establish baseline and assess for any current hemorrhage prior to continuing heparin CT head shows old hemorrhagic lesions without any acute bleeding Discussed extensively with family at bedside ( + Sons) that this is a v aline grave situation. On one hand there is symptoms of dyspnea, hypoxia , tachycardia related to extensive left side PE with suggestion of right heart strain that needs anticoagulation. On the other there are brain mets that are hemosiderin laden at high risk of bleeding with anticoagulation. Discussed that at this present time, the benefits of anticoagulation outweigh the potential risk of bleeding. Weighing the risks and benefits, family is agreeable to proceed with anticoagulation with heparin drip at this time. Will attempt to obtain lymph node biopsy while inpatient to help establish [facility] malignancy Axillary lymph node biopsied on 09/02/2024. Patient was started on Eliquis and discharged to home for follow-up with oncology. Physical Exam Narrative: Appears older than her stated age no acute distress she does have dyspnea with conversation but she does not report discomfort Heart regular normal S1-S2 without murmurs clicks gallops or rubs Lungs diffusely diminished breath sounds with scattered wheezes and rhonchi poor expiratory phase Abdomen soft nontender nondistended positive bowel sounds Extremities thin no edema Discharge Data Studies Completed and Pending Completed Studies During Hospitalization Category Date Time Status CT head wo con* [id number] Routine Cat Scan 08/31/24 18:[address] head wo con* [id number] Stat Cat Scan 08/30/24 17:58 Completed CTA chest [CT angio chest PE protcl [id number]] Stat Cat Scan 08/30/24 15:01 Completed XR chest 1V portable [id number] Stat Exams 08/30/24 14:54 Completed CV. echo complete* [id number] Stat Ultrasound 08/30/24 17:51 Completed US venous duplex lower extremity LT [CV venous duplex Ultrasound 08/30/24 15:01 [place] [id number]] Stat Pending at discharge Category Date Time Status Pathology: Surgical [PTH] Routine Pth 09/02/24 14:07 Received US biopsy lymph node [id number] Routine Ultrasound 09/02/24 06:00 Taken Radiology Impressions Chest X-Ray 08/30/24 14:54 IMPRESSION: 1. No acute findings. 2. 7 mm right lower lung zone nodule corresponds to nodule of concern on recent PET-CT. Chest CTA 08/30/24 15:01 IMPRESSION: 1. Exam is positive for pulmonary emboli, predominantly in the left lung. 2. RV/LV ratio suggests elevated right heart pressure. 3. 8 mm right lower lobe nodule, suspicious for malignancy. 4. Enlarged mediastinal, hilar, and axillary lymphadenopathy. This is suspicious for malignancy. ADDENDUM: 08/30/24 [id number] THIS REPORT CONTAINS FINDINGS THAT MAY BE CRITICAL TO PATIENT CARE. The findings were verbally communicated via telephone conference with ZACKERY JAMES at 5:20 PM CDT on 08/30/2024. The findings were acknowledged and understood. Head CT 08/31/24 18:40 IMPRESSION: 1. Stable hyperdense lesions in the right temporal lobe and right parietal lobe measuring 4 mm. 2. No new lesion, mass effect, intracranial bleed or large territorial infarct. Laboratory Results WBC 9.53 10^3/uL (3.29-11.43) 09/01/24 03:40 RBC 3.98 10^6/uL (3.85-5.65) 09/01/24 03:40 Hgb 11.80 g/dL (11.27-16.99) 09/01/24 03:40 Hct 36.5 % (36-47) 09/01/24 03:40 MCV 91.7 fl (85-98) 09/01/24 03:40 MCH 29.6 pg (27-33) 09/01/24 03:40 MCHC 32.3 g/dL (30-55) 09/01/24 03:40 RDW 14.2 % (12.1-15.1) 09/01/24 03:40 Plt Count 198 10^3/cmm (157-399) 09/01/24 03:40 MPV 9.7 fL (7.4-10.4) 09/01/24 03:40 Neut % (Auto) 91.1 % 09/01/24 03:40 Lymph % (Auto) 5.1 % 09/01/24 03:40 Towner % (Auto) 2.8 % 09/01/24 03:40 Eos % (Auto) 0.0 % 09/01/24 03:40 Baso % (Auto) 0.1 % 09/01/24 03:40 Neut # (Auto) 8.67 10^3/uL (1.8-7.7) H 09/01/24 03:40 Lymph # (Auto) 0.5 10^3/uL (0.8-4.8) L 09/01/24 03:40 Towner # (Auto) 0.3 10^3/uL (0.2-0.9) 09/01/24 03:40 Eos # (Auto) 0.0 10^3/uL (0.0-0.8) 09/01/24 03:40 Baso # (Auto) 0.0 10^3/uL (0.0-0.1) 09/01/24 03:40 Nucleated RBC % (auto) 0 % 09/01/24 03:40 Nucleated RBCs # 0.0 /100WBC 09/01/24 03:40 APTT 86.4 SECONDS (23.9-36.7) H 09/02/24 08:03 Specimen Type Arterial 08/30/24 14:54 Sample Site Radial, right 08/30/24 14:54 ABG pH 7.49 (7.35-7.45) H 08/30/24 14:54 ABG pCO2 40.3 mmHg (35-45) 08/30/24 14:54 ABG pO2 75.5 mmHg (80.0-100.0) L 08/30/24 14:54 ABG HCO3 30.3 mmol/L (22-26) H 08/30/24 14:54 ABG Base Excess 6.3 mmol/L (-2.0-2.0) H 08/30/24 14:54 Abisai Test Pos 08/30/24 14:54 Hematocrit 41.0 % (37-47) 08/30/24 14:54 Hgb O2 Saturation 94.5 % (95-100) L 08/30/24 14:54 Carboxyhemoglobin 1.5 %THgb (0.4-20.1) 08/30/24 14:54 Methemoglobin 1.1 % (0.4-1.5) 08/30/24 14:54 Total Hemoglobin 13.4 g/dL (12-16) 08/30/24 14:54 O2 Delivery Device Nc 08/30/24 14:54 O2 Liters/Min 5.0 % 08/30/24 14:54 Policy Writer ID Wanda 08/30/24 14:54 Sodium 142 mmol/L (136-145) 09/01/24 03:40 Potassium 4.1 mmol/L (3.5-5.1) 09/01/24 03:40 Chloride 107 mmol/L (98-107) 09/01/24 03:40 Carbon Dioxide 27 mmol/L (22-29) 09/01/24 03:40 Anion Gap 12.1 (5-19) 09/01/24 03:40 BUN 22 mg/dL (8-23) 09/01/24 03:40 Creatinine 0.5 mg/dL (0.5-0.9) 09/01/24 03:40 GFR Calculation Not Reportable 09/01/24 03:40 Glucose 147 mg/dL (65-115) H 09/01/24 03:40 Calculated Osmolality 300 mOsm/kg (285-295) H 09/01/24 03:40 Lactic Acid 1.9 mmol/L (0.5-2.2) 08/30/24 15:20 Calcium 8.7 mg/dL (8.5-10.5) 09/01/24 03:40 Total Bilirubin 0.4 mg/dL (0.15-1.2) 09/01/24 03:40 AST 16 U/L (0-32) 09/01/24 03:40 ALT 11 U/L (0-33) 09/01/24 03:40 Alkaline Phosphatase 80 U/L (35-105) 09/01/24 03:40 Troponin T Baseline 32 ng/L (0-10) H 08/30/24 15:20 Troponin T 120 Minute 25.92 ng/L (0-10) H 08/30/24 17:42 Delta Troponin T -6.08 ABS# (0-10) L 08/30/24 17:42 Troponin T Hi Sens 6Hr 24.89 ng/L (0-10) H 08/30/24 21:45 Troponin T Hi Sens 6Hr Delta -7.11 ng/L (0-12) L 08/30/24 21:45 NT-Pro-B Natriuret Pep 988 pg/mL (0-450) H 08/30/24 15:20 Total Protein 5.4 g/dL (6.6-8.7) L 09/01/24 03:40 Albumin 3.2 g/dL (3.5-5.2) L 09/01/24 03:40 Globulin 2.2 g/dL (1.3-4.6) 09/01/24 03:40 Coronavirus (PCR) Negative (Negative) 08/30/24 15:16 Influenza A (PCR) Negative (Negative) 08/30/24 15:16 Influenza Type B (PCR) Negative (Negative) 08/30/24 15:16 RSV (PCR) Negative (Negative) 08/30/24 15:16 Vitals Last Vital Signs Temp 98.0 F 09/02/24 12:00 Pulse 91 09/02/24 12:00 Resp 16 09/02/24 08:59 BP 156/83 09/02/24 12:00 Pulse Ox 96 09/02/24 12:00 O2 Del Method Nasal Cannula 09/02/24 12:00 O2 Flow Rate 2 09/01/24 20:27 Discharge Plan Discharge Patient Disposition: Home Condition: Stable Prescriptions: New quetiapine 25 mg Tablet 25 mg PO BEDTIME Qty: 30 0RF pantoprazole 40 mg Tablet,Delayed Release (Dr/Ec) 40 mg PO DAILY Qty: 30 0RF Eliquis 5 mg Tablet 5 mg PO BID@0900,2100 Qty: 60 0RF Continued cholecalciferol (vitamin D3) 5,000 unit tablet,disintegrating 5,000 unit PO BID coenzyme Q10 [Co Q-10] 100 mg capsule 100 mg PO DAILY albuterol sulfate 2.5 mg /3 mL (0.083 %) solution for nebulization 2.5 mg inhalation Q4H PRN (Reason: shortness of breath or wheezing) Qty: 180 2RF albuterol sulfate 90 mcg/actuation HFA aerosol inhaler 2 puff inhalation Q6H PRN (Reason: shortness of breath or wheezing) Qty: 8.5 2RF budesonide [Pulmicort] 0.5 mg/2 mL suspension for nebulization 0.5 mg INHALATION BID Qty: 60 2RF Breztri Aerosphere 160-9-4.8 mcg/actuation HFA aerosol inhaler 2 inh inhalation BID Qty: 10.7 2RF magnesium oxide 400 mg magnesium tablet 400 mg PO BID Qty: 60 2RF furosemide [Lasix] 40 mg tablet 40 mg PO QAM Qty: 30 0RF Hold Instructions: Patient No Longer Taking Zoloft 50 mg tablet 50 mg PO .2 times day Qty: 60 2RF (DME) Wheel chair See Rx Instructions .Route .MEDSUPPLY Qty: 1 0RF Rx Instructions: As directed buspirone 10 mg tablet 10 mg PO TID Qty: 90 2RF Rx Instructions: for anxiety as needed (DME) Disposable nebulizer circuit with mask See Rx Instructions .ROUTE .MEDSUPPLY Qty: 1 2RF Rx Instructions: As directed ondansetron 8 mg tablet,disintegrating 8 mg PO Q8H PRN (Reason: nausea and vomiting) Qty: 90 3RF dexamethasone 4 mg tablet 4 mg PO BID Qty: 40 0RF ondansetron 4 mg tablet,disintegrating 4 mg PO Q6H PRN (Reason: nausea and vomiting) Qty: 30 0RF Discontinued cilostazol 100 mg tablet 100 mg PO BID Qty: 180 3RF Referrals: Juliann Dejesus, SULEMAN [Primary Care Provider] - Patient Instructions: Opioid Safety Activity Restrictions/Additional Instructions: Patient may continue rosuvastatin. I could not click the continued button on the discharge med list. Note we just changed it to a different medication on hospital formulary. Follow-up with oncology in 2 weeks. Discharge Attestations Time Spent in Discharge Care*: greater than 30 min Time Spent in Smoking Cessation: Patient reports that she is already quit smoking on diagnosis of brain mets. Quality Metrics Clinical Quality Measures [ Venous Thromboembolism { Contraindication to Overlap Therapy: Overlap treatment not indicated; VTE Discharge Education: Education about anticoagulant therapy/Care Notes given; Deep Vein Thrombosis/Pulmonary Embolism Present on Admission: Yes;}] Coding Level of Care Code Acute Code for Chg Fwd Diagnoses Other acute pulmonary embolism without acute cor pulmonale I26.99 Acute cor pulmonale presence: without acute cor pulmonale Chronicity: acute Pulmonary embolism type: other Intracranial mass R90.0 Multiple lung nodules R91.8 Lymphadenopathy, mediastinal R59.0 Axillary lymphadenopathy R59.0
[2024-09-02] MEDS: apixaban 5 mg Tablet PO (14:24)
--- NOTE | 2024-09-02 15:05 | PC.NURSE ---
Patient biopsy site to left axillary has no s/s of bleeding or hematoma formation observed. Dressing remains c,d,i. Patient only c/o mild soreness presently. Will continue to monitor.
--- NOTE | 2024-09-02 15:27 | PC.NURSE ---
Patient discharged to home. Instruction provided regarding follow up needs, new medication and medication changes. Patient and spouse both verbalized complete understanding. Dressing to biopsy site remains c,d,i without s/s of bleeding or hematoma formation observed. Patient taken by wheelchair to private vehicle with spouse by side. Home O2 is available at discharge.
== END 2024-09-02 15:29 | disposition home health service (06) | DRG 176 ==
LOC: ER 17:31 → CSU 18:36
PROVIDERS: Internal Medicine; Admitting Provider Student in an Organized Health Care Education/Training Program; Emergency Provider Emergency Medicine; PCP Nurse Practitioner; Visit Provider Internal Medicine
DX: I26.94 Multiple subsegmental thrombotic pulmonary emboli without acute cor pulmonale (principal); C34.91 Malignant neoplasm of unspecified part of right bronchus or lung; C79.31 Secondary malignant neoplasm of brain; C77.3 Secondary and unspecified malignant neoplasm of axilla and upper limb lymph nodes; I10 Essential (primary) hypertension; I73.9 Peripheral vascular disease, unspecified; J44.9 Chronic obstructive pulmonary disease, unspecified; R09.02 Hypoxemia; R00.0 Tachycardia, unspecified; E78.2 Mixed hyperlipidemia; Z96.649 Presence of unspecified artificial hip joint; R59.0 Localized enlarged lymph nodes; Z99.81 Dependence on supplemental oxygen; Z79.51 Long term (current) use of inhaled steroids; Z79.02 Long term (current) use of antithrombotics/antiplatelets; Z87.891 Personal history of nicotine dependence
CPT/HCPCS: 0241U; 36415; 36600; 38505; 70450; 71045; 71275; 76942; 80053; 82805; 83605; 83880; 84484; 85025; 85730; 88305; 88342; 93005; 93306; 93971; 94640; 96365; 96366; 96375; 99285; J1644; J2919; J7030; J7626; J8540

== ENCOUNTER → 2024-09-14 11:00 | Outpatient (BNVA) | payer OTHER, SELFPAY | PROVIDERS: PCP Nurse Practitioner; Visit Provider Nurse Practitioner Family | DX: I26.99 Other pulmonary embolism without acute cor pulmonale (principal); I73.9 Peripheral vascular disease, unspecified; I10 Essential (primary) hypertension; C34.90 Malignant neoplasm of unspecified part of unspecified bronchus or lung; Z87.891 Personal history of nicotine dependence; R60.0 Localized edema | CPT/HCPCS: 99214 ==

== ENCOUNTER 2024-09-28 08:20 | Oncology outpatient (recurring) (ONCR) | payer OTHER, SELFPAY ==
[2024-09-05 14:26] LABS: Lymphoma Profile (BBPL) See Report
[2024-09-13 08:23] LABS: PD-L1 (Clone 22C3) by IHC BBPL See Report
--- NOTE | 2024-09-20 09:12 | ONCRAD EPV_ITS ---
Radiation Oncology Established Patient Visit Patient: Domitila Romero [id number] : 1945> Age: 79> Sex: Female> Dictated by: Dr. Elva Cage Date of Service: 09/19/2024 Referring Physician(s) : Diagnosis: C34.81 - Malignant neoplasm of overlapping sites of right bronchus and lung, Diagnosed 08/01/2024 (Active) Stage ISIDRO, T4, N2, M1b C79.31 - Secondary malignant neoplasm of brain, Diagnosed 08/01/2024 (Active) This is a pleasant 78-year-old female who presented to her PCP with chief complaint of positive cough and shortness of breath. Patient underwent CT of the C/A/P on 06/28/2024 which showed enlarged mediastinal lymph nodes, subcarinal lymph nodes/right hilar lymph nodes and lymphadenopathy in the left axilla. Patient complained of dizziness and abnormal gait and underwent MRI Brain on 07/26/2024. This return left frontal/Parietal mass measuring 1 x 1.4 x 1 1.2 cm. There is also a mass in the floor of the fourth ventricle measuring 1.3 x 0.9 x 1.2 cm. Patient is a prior smoker quitting some 1 month ago and smoked for approximately 75 pack years. Patient lives at home with her in [place], [place] Patient has 1 sister who has lung cancer. Radiotherapy to Date: Course: Whole Brain 2023, Treatment Site: [id number], Ref. ID: [id number], Energy: 15X, Dose/Fx (cGy): 300, #Fx: , Dose Correction (cGy): 0, Total Dose Delivered (cGy): , 3,000, Start Date: 08/03/2024, End Date: 08/17/2024, Elapsed Days: 14 Current History: Patient returns today 1 month from completion of whole brain radiation. Her pathology did return as a large cell with neuroendocrine features. The PD-L1 is still pending. Subjectively she is feeling about the same. She is completely off of her steroids now. Current Medications: Allergies: Current Complaints / Review of Systems: . Vital Signs: Performed on 09/19/2024 3:30 PM BMI - 23.07 kg/m2 (high), Height - 64 in, Weight - 134.4 lbs, Temperature - 97.8 f, Pulse - 89 /min, Respiration - 20 /min, O2 Sat - 89 % (low), Pain - 0, Fatigue - 0 and BP - 140/ 75 mm(hg). Physical Exam: General: Alert and oriented x 3. No acute distress. HEENT: Normocephalic, atraumatic. Extraocular Movements Intact: Pupils Equal, Round, Reactive to Light: Sclerae anicteric. . . LUNGS: Respiratory regular nonlabored HEART: Regular rate and rhythm NEUROLOGIC: Patient is alert and oriented. She is companied by her son. Speech is intact. Performance Status: 80 Lab: None pending. Pathology: Primary, c34.81 - malignant neoplasm of overlapping sites of right bronchus and lung, Diagnosed 08/01/2024 (active) stage isidro, t4, n2, m1b and Primary, c79.31 - secondary malignant neoplasm of brain, Diagnosed 08/01/2024 (active) . 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 She is completely off her steroids. At this point we will see her back on as-needed basis. Signed by: 09/20/2024 9:10:02 AM <<Signature on File>> Time spent with patient: 20 CPT Code: CPT Code:
[2024-09-22 09:38] LABS: Basophils % 0.6 %; Eosinophils % 0.1 %; Hematocrit 42.2 % (36-47); Lymphocytes # 0.4 10^3/uL (0.8-4.8); Lymphocytes % 5.6 %; Mean Corpuscular HGB Conc 32.2 g/dL (30-55); Mean Corpuscular Hemoglobin 30.4 pg (27-33); Mean Corpuscular Volume 94.4 fl (85-98); Mean Platelet Volume 9.6 fL (7.4-10.4); Monocytes # 0.1 10^3/uL (0.2-0.9); Monocytes % 1.8 %; Neutrophils # 6.33 10^3/uL (1.8-7.7); Neutrophils % 88.8 %; Nucleated Red Blood Cells % 0 %; Platelet Count 160 10^3/cmm (157-399); Red Blood Count 4.47 10^6/uL (3.85-5.65); Red Cell Distribution Width 14.2 % (12.1-15.1); White Blood Count 7.13 10^3/uL (3.29-11.43)
[2024-09-22 09:58] LABS: Alanine Aminotransferase 9 U/L (0-33); Albumin Level 3.4 g/dL (3.5-5.2); Alkaline Phosphatase 86 U/L (35-105); Anion Gap 9.3 (5-19); Aspartate Amino Transferase 19 U/L (0-32); Blood Urea Nitrogen 26 mg/dL (8-23); Calcium 9.7 mg/dL (8.5-10.5); Chloride 96 mmol/L (98-107); Creatinine Clr Calc Pharmacy 50.9394; Glucose 137 mg/dL (65-115); INR 1.44 (0.8-1.2); Lactate Dehydrogenase 278 U/L (135-214); Osmolality Calculated 305 mOsm/kg (285-295); Potassium 3.3 mmol/L (3.5-5.1); Sodium 144 mmol/L (136-145); Total Bilirubin 0.6 mg/dL (0.15-1.2); Total Protein 6.4 g/dL (6.6-8.7); Uric Acid 5.8 mg/dL (2.4-5.7)
[2024-09-22 10:08] LABS: Carbon Dioxide 42 mmol/L (22-29)
[2024-09-28 09:08] LABS: Basophils % 0.4 %; Eosinophils % 0.2 %; Hematocrit 40.8 % (36-47); Lymphocytes # 0.6 10^3/uL (0.8-4.8); Mean Corpuscular HGB Conc 32.1 g/dL (30-55); Mean Corpuscular Hemoglobin 29.8 pg (27-33); Mean Corpuscular Volume 92.7 fl (85-98); Mean Platelet Volume 10.7 fL (7.4-10.4); Monocytes # 0.2 10^3/uL (0.2-0.9); Monocytes % 2.7 %; Neutrophils # 7.48 10^3/uL (1.8-7.7); Neutrophils % 88.3 %; Nucleated Red Blood Cells % 0 %; Platelet Count 217 10^3/cmm (157-399); Red Cell Distribution Width 14.4 % (12.1-15.1); White Blood Count 8.47 10^3/uL (3.29-11.43)
[2024-09-28 09:24] LABS: Alanine Aminotransferase 6 U/L (0-33); Albumin Level 3.5 g/dL (3.5-5.2); Alkaline Phosphatase 83 U/L (35-105); Blood Urea Nitrogen 31 mg/dL (8-23); Calcium 10.5 mg/dL (8.5-10.5); Carbon Dioxide 40 mmol/L (22-29); Chloride 93 mmol/L (98-107); Creatinine Clr Calc Pharmacy 50.7759; Glucose 128 mg/dL (65-115); Osmolality Calculated 300 mOsm/kg (285-295); Sodium 141 mmol/L (136-145); Total Bilirubin 0.6 mg/dL (0.15-1.2); Total Protein 6.5 g/dL (6.6-8.7)
[2024-09-28 09:50] LABS: Anion Gap 11.7 (5-19); Aspartate Amino Transferase 18 U/L (0-32); Lactate Dehydrogenase 325 U/L (135-214); Potassium 3.7 mmol/L (3.5-5.1)
== END 2024-10-01 23:59 | disposition home or self-care (01) ==
PROVIDERS: Internal Medicine Hematology & Oncology; PCP Nurse Practitioner; Visit Provider Internal Medicine
DX: Z53.9 Procedure and treatment not carried out, unspecified reason; C34.81 Malignant neoplasm of overlapping sites of right bronchus and lung; C79.31 Secondary malignant neoplasm of brain; Z92.3 Personal history of irradiation; C77.3 Secondary and unspecified malignant neoplasm of axilla and upper limb lymph nodes; Z79.01 Long term (current) use of anticoagulants; J44.9 Chronic obstructive pulmonary disease, unspecified; Z99.81 Dependence on supplemental oxygen; I48.91 Unspecified atrial fibrillation
CPT/HCPCS: 36415; 80053; 83615; 84550; 85025; 85610; 88184; 88185; 88341; 88342; 99024; 99213; 99214

== ENCOUNTER → 2024-10-07 10:00 | Outpatient (BNVA) | payer OTHER, SELFPAY | PROVIDERS: PCP Nurse Practitioner; Visit Provider Surgery | DX: C34.91 Malignant neoplasm of unspecified part of right bronchus or lung (principal); C79.31 Secondary malignant neoplasm of brain; I26.99 Other pulmonary embolism without acute cor pulmonale; Z79.01 Long term (current) use of anticoagulants | CPT/HCPCS: 99214 ==

== ENCOUNTER 2024-10-11 07:01 | Day surgery (SDC) | payer OTHER, SELFPAY ==
[2024-10-11] VITALS (8 sets, daily range): BP systolic 119–143; BP diastolic 55–76; PULSE 85–91; RESP 16–24; TEMP 36.2–37.3; O2SAT 91–100; BMI 22.3
--- NOTE | 2024-10-11 07:02 | SC_ITS ---
WS: [id number] Exam: C-arm FL for CVA [id number] Date/Time of Exam: 10/11/2024 7:02 AM Reason For Exam: Mediport placement Single C-arm image of the upper chest is submitted for evaluation. The image depicts a LEFT subclavia n port in place ending in the lower one third of the SVC.
--- NOTE | 2024-10-11 07:03 | W.PM.OPSUD ---
Surgery/Procedure H&P Update DATE OF PROCEDURE: October 11, 2024 DATE H&P PERFORMED: 10/07/24 H&P UPDATE INFORMATION: I have reviewed H&P completed within last 30 days, I have examined patient prior to procedure and No changes to prior documentation PLANNED PROCEDURE: Operation Date: 10/11/24 08:20 Proposed Procedures p Portacath Placement 67566, C34.91, C34.90, C79.31(Not Applicable) - Juan Hilton DO
--- NOTE | 2024-10-11 07:04 | PC.NURSE ---
Dr. Hilton stated it was ok to give pt cefazolin with cefuroxime allergy.
--- NOTE | 2024-10-11 07:32 | ANES.PREANE2 ---
Pre-Anesthetic Assessment Height/Weight: Height 5 ft 4 in Weight 130 lb Preop Diagnosis: Metastatic lung cancer Operation Date: 10/11/24 08:20 Proposed Procedures p Portacath Placement 94672, C34.91, C34.90, C79.31(Not Applicable) - Juan Hilton, DO Was Beta Rosemarie taken within 24 hours: N/A Was Clonidine taken within 24 hours: N/A Social No alcohol and No tobacco Exam alert, oriented x 3 and regular rate & rhythm Decreased breath sounds bilaterally Airway Submandibular: within normal limits Cervical ROM: within normal limits Mallampati: Class II Dentition: other (Edentulous) Anesthetic Plan ASA status: 4 Anesthesia: MAC Other: Patient has non-small cell lung cancer with mets to the brain, previously scheduled for port placement but experienced a PE NPO since yesterday Patient is on 3 L/min home O2 but has turned it up to 4-5 L/min over the last few weeks History of GERD on Protonix METS less than 4 Discussed with patient and family risk of anesthesia. If patient requires intubation, may require slow extubation in ICU. Plan for MAC anesthetic Medications/Allergies Home Medications Medication Instructions Recorded Confirmed Last Taken Type cholecalciferol (vitamin D3) 125 5,000 unit PO BID 12/06/19 10/10/24 Unknown History mcg (5,000 unit) disintegrating tablet coenzyme Q10 100 mg capsule (Co 100 mg PO DAILY 06/18/21 10/10/24 10/10/24 History Q-10) Disposable nebulizer circuit with #1 ea 12/09/21 10/07/24 Unknown Rx mask Wheel chair #1 ea 07/13/24 10/07/24 Unknown Rx dexamethasone 4 mg tablet 4 mg PO BID #40 tabs 08/29/24 10/10/24 Unknown Rx ondansetron 8 mg disintegrating 8 mg PO Q8H PRN nausea and 08/29/24 10/10/24 Unknown Rx tablet vomiting #90 tabs albuterol sulfate 2.5 mg/3 mL 2.5 mg (3 mL) inhalation Q4H PRN 09/08/24 10/10/24 10/10/24 Rx (0.083 %) solution for nebulization shortness of breath or wheezing #180 mL albuterol sulfate 90 mcg/actuation 2 puff inhalation Q6H PRN 09/08/24 10/10/2410/10/24 Rx aerosol inhaler shortness of breath or wheezing #8.5 grams apixaban 5 mg tablet (Eliquis) 5 mg PO BID@0900,2100 #60 tabs 09/08/24 10/10/24 10/08/24 Rx budesonide 0.5 mg/2 mL suspension 0.5 mg (2 mL) inhalation BID #60 mL 09/08/24 10/10/24 10/09/24 Rx for nebulization (Pulmicort) budesonide 160 mcg-glycopyr 9 2 inh inhalation BID #10.7 grams 09/08/24 10/10/24 10/09/24 Rx mcg-formot 4.8 mcg/actuation HFA inhaler (Breztri Aerosphere) buspirone 10 mg tablet 10 mg PO TID #90 tabs 09/08/24 10/10/24 Unknown Rx furosemide 40 mg tablet (Lasix) 40 mg PO QAM #30 tabs 09/08/24 10/10/24 10/10/24 Rx magnesium oxide 400 mg PO BID #60 tabs 09/08/24 10/10/24 10/10/24 Rx olanzapine 2.5 mg tablet (Zyprexa) 2.5 mg PO .in AM #30 tabs 09/08/24 10/10/24 Unknown Rx pantoprazole 40 mg tablet,delayed 40 mg PO DAILY #30 tabs 09/08/24 10/10/24 Unknown Rx release quetiapine 25 mg tablet 25 mg PO BEDTIME #30 tabs 09/08/24 10/10/24 Unknown Rx sertraline 50 mg tablet (Zoloft) 50 mg PO .2 times day #60 tabs 09/08/24 10/10/24 10/10/24 Rx usiqvbtfrwuvlbh-whzvrdcdlmouk-MT 1 5 ml PO Q4H PRN allergy symptoms 09/15/24 10/10/24 Unknown Rx mg-2.5 mg-5 mg/5 mL oral solution #118 mL (Dimetapp DM Cold-Cough (PE)) Oxygen concentrator and portable #1 ea 09/26/24 10/07/24 Unknown Rx NC 2L honey 100 % topical paste 1 applic topical BID #103 mL 10/04/24 10/10/24 Unknown Rx (MediHoney (honey)) dexamethasone 4 mg tablet 4 mg PO BID #24 tabs 10/06/24 10/10/24 Unknown Rx folic acid 1 mg tablet 1 mg PO DAILY #30 tabs 10/06/24 10/10/24 Unknown Rx lorazepam 1 mg tablet 0.5 - 1 mg (0.5 - 1 x 1 mg) PO Q6H 10/06/24 10/10/24 Unknown Rx PRN severe nausea #30 tabs prochlorperazine maleate 10 mg 10 mg PO Q4H PRN mild nausea #30 10/06/24 10/10/24 Unknown Rx tablet (Compazine) tabs Allergies Allergy/AdvReac Type Severity Reaction Status Date / Time cefuroxime [From Ceftin] AdvReac Severe ADR-Gastrointestinal Verified 10/11/24 07:31 Upset PFSH Anesthesia Medical History PAD (peripheral artery disease) Left displaced femoral neck fracture Murmur Personal history of nicotine dependence COPD (chronic obstructive pulmonary disease) Anxiety and depression Essential (primary) hypertension Vitamin D deficiency Mixed hyperlipidemia Surgical History S/P hip hemiarthroplasty History of breast biopsy Left Negative at age 20's Family History Family/Other Nicotine addiction Social History Smoking and tobacco/nicotine status: former use of tobacco/nicotine Second hand smoke exposure: Yes Alcohol intake: unknown Substance/Drug Use: unknown Adopted: No Caregiver/support person: Yes Lives independently: Yes Household members: spouse Housing: House Marital status: Number of children: 6 service: No Current occupational status: retired Current occupational exposures/hazards: No Pets and animals: Yes Pets & animals: dog(s) Do you think of yourself as: Straight/Heterosexual Current gender identity: Female Data Anesthesia Cardiac Studies: Echocardiogram 08/30/24 Echocardiogram Ultrasound 05/16/21
[2024-10-11] MEDS: sodium chloride 0.9% 1,000 ML 30 ML IV (07:42)
[2024-10-11] MEDS: ceFAZolin 2,000 mg SDV 2000 MG IVP (08:40)
[2024-10-11] MEDS: heparin, porcine 1,000 unit/mL INJ 10 mL 10000 UNIT XX (08:56)
[2024-10-11] MEDS: lidocaine-epi 2% PF 1:200,000 20 mL SDV INJECTION (08:56)
--- NOTE | 2024-10-11 09:13 | PM.OP ---
Operative Report Date of procedure: October 11, 2024 Surgeon: Juan Hilton DO Brief History: This is a very pleasant 79-year-old female who was diagnosed with lung cancer. Oncology requested Mediport placement for chemotherapy access. The risks and benefits were explained and documented. Procedure: Pre-op diagnosis: Lung cancer Post-op diagnosis: same Procedure done: Mediport placement Intraoperative interpretation of fluoroscopy Implants: PowerPort Specimens removed/disposition: None Surgeon: Juan Hilton DO Anesthesia: MAC and Local Estimated blood loss (mL): 5 Complications: None apparent Procedure: The patient was taken to the operating room and placed supine on the operating room table. All bony prominences were padded. She was given IV sedation and monitored throughout the case by the anesthesia personnel. SCDs were placed and turned on. The arms were tucked to the side. Patient received Ancef 2 g preoperatively IV. The bilateral chest wall was prepped and draped in usual sterile fashion using chlorhexidine base prep. Sterile drapes were applied. We did procedure pause prior to beginning. An 18 gauge needle was placed in the left subclavian vein. Dark, nonpulsatile blood was aspirated. A guidewire was placed through the needle centrally toward the atrial/vena caval junction. Fluoroscopy visualized good placement. The needle was removed and the guidewire was clipped to the drape with a hemostat. Further local anesthetic was infiltrated in the soft tissues of the left chest wall and a #15 blade was used to make a horizontal skin incision. A subcutaneous Mediport pocket was created using Bovie cautery, dissecting down through the skin and subcutaneous tissues. Meticulous hemostasis was achieved. The Mediport was sutured in position using 3-0 vicryl suture x2 stitches. A #15 blade was used to make a small skin sanket around the guidewire insertion area. The Mediport tubing was tunneled through the subcutaneous tissues up to the needle insertion location. A dilator with a peel-away sheath was placed over the guidewire and placed centrally. After measuring the Mediport tubing was cut to length so that the tip would end at the atrial/vena caval junction. The inner cannula and the guidewire were removed, leaving the dilator sheath in place. The Mediport was flushed. The tip of the catheter was inserted through the peel-away sheath and the peel-away sheath removed in the standard fashion. The Mediport was accessed with a straight Alonzo needle and dark, nonpulsatile blood was aspirated and flushed using heparinized saline to hep-lock the Mediport. Final fluoroscopy visualization showed no kink in the catheter and the tip of the Mediport tubing near the atrial/vena caval junction. There is no obvious pneumothorax. Both skin incisions were thoroughly irrigated and suctioned dry. Meticulous hemostasis noted. The dermis was approximated with 3-0 Vicryl in an interrupted fashion. Skin was closed with Dermabond. Patient was awakened from anesthesia and transferred via her cart to the recovery room in stable condition. All needle, sponge, and instrument counts were correct per the operating personnel x2 counts.
--- NOTE | 2024-10-11 09:36 | XR_ITS ---
WS: [id number] Exam: XR chest 1V portable [id number] Date/Time of Exam: 10/11/2024 9:39 AM Reason For Exam: POSTOP mediport placement Comparison 08/30/2024. A LEFT subclavian port has been placed and ends in the lower one third of the SVC in good position. E nlarging ill-defined nodule in the RIGHT lower lung zone about 15 mm. No consolidating infiltrates. N o pneumothorax. Normal cardiomediastinal silhouette. Bony structures are intact. XR/XR chest 1V portable [id number] IMPRESSION: 1. LEFT subclavian port in satisfactory location. 2. Enlarging ill-defined soft tissue nodule in the RIGHT lower lung zone.
--- NOTE | 2024-10-11 10:40 | ANE.PACU2 ---
Inpatient post-anesthesia follow up: Airway intact: Yes Vital signs: Temperature 97.1 F Pulse Rate 90 Respiratory Rate 16 Blood Pressure 143/66 Pulse Oximetry 96 Oxygen Delivery Me thod Room Air Oxygen Flow Rate 2 Fraction of Inspir ed Oxygen Hydration adequate: Yes Nausea and vomiting: No Pain level: 1 Mental status: Baseline
== END 2024-10-11 10:40 | disposition home or self-care (01) ==
PROVIDERS: PCP Nurse Practitioner; Visit Provider Surgery
PROC: (CPT 36561; principal; 2024-10-11 08:10)
DX: C34.91 Malignant neoplasm of unspecified part of right bronchus or lung (principal); C79.31 Secondary malignant neoplasm of brain; K21.9 Gastro-esophageal reflux disease without esophagitis; J44.9 Chronic obstructive pulmonary disease, unspecified; I10 Essential (primary) hypertension; E55.9 Vitamin D deficiency, unspecified; E78.2 Mixed hyperlipidemia; Z87.891 Personal history of nicotine dependence; Z79.01 Long term (current) use of anticoagulants; I26.99 Other pulmonary embolism without acute cor pulmonale
CPT/HCPCS: 36561; 71045; 76000; 77001; C1788; J0690; J1644; J2704; J3010; J7030

== ENCOUNTER → 2024-10-24 10:32 | Outpatient (BNVA) | payer OTHER, SELFPAY | PROVIDERS: PCP Nurse Practitioner; Visit Provider Surgery | DX: Z95.828 Presence of other vascular implants and grafts (principal) | CPT/HCPCS: 99214 ==

== ENCOUNTER 2024-10-31 07:48 | Oncology outpatient (recurring) (ONCR) | payer OTHER, SELFPAY ==
[2024-10-17 09:10] LABS: Basophils % 0.2 %; Eosinophils % 0.1 %; Hematocrit 37.7 % (36-47); Lymphocytes % 12.6 %; Mean Corpuscular HGB Conc 32.6 g/dL (30-55); Mean Corpuscular Hemoglobin 30.3 pg (27-33); Mean Corpuscular Volume 92.9 fl (85-98); Mean Platelet Volume 10.1 fL (7.4-10.4); Monocytes # 0.3 10^3/uL (0.2-0.9); Monocytes % 3.9 %; Neutrophils # 6.68 10^3/uL (1.8-7.7); Neutrophils % 82.3 %; Nucleated Red Blood Cells % 0 %; Platelet Count 243 10^3/cmm (157-399); Red Blood Count 4.06 10^6/uL (3.85-5.65); Red Cell Distribution Width 14.7 % (12.1-15.1); White Blood Count 8.12 10^3/uL (3.29-11.43)
[2024-10-17 09:40] LABS: Alanine Aminotransferase < 5 U/L (0-33); Albumin Level 3.5 g/dL (3.5-5.2); Alkaline Phosphatase 74 U/L (35-105); Anion Gap 13.2 (5-19); Aspartate Amino Transferase 15 U/L (0-32); Blood Urea Nitrogen 19 mg/dL (8-23); Calcium 9.3 mg/dL (8.5-10.5); Carbon Dioxide 35 mmol/L (22-29); Chloride 96 mmol/L (98-107); Cortisol Random 20.07 ug/dL (2.47-19.5); Globulin 2.7 g/dL (1.3-4.6); Glucose 112 mg/dL (65-115); Osmolality Calculated 295 mOsm/kg (285-295); Potassium 3.2 mmol/L (3.5-5.1); Sodium 141 mmol/L (136-145); Total Bilirubin 0.8 mg/dL (0.15-1.2); Total Protein 6.2 g/dL (6.6-8.7)
[2024-10-17] MEDS: cyanocobalamin 1,000 mcg/mL SDV 1000 MCG IM (10:26)
[2024-10-17 10:28] VITALS: BP 129/76; PULSE 85; RESP 18; TEMP 36.7; O2SAT 99
[2024-10-31 09:17] LABS: Basophils % 0.1 %; Lymphocytes % 14.5 %; Mean Corpuscular HGB Conc 32.6 g/dL (30-55); Mean Corpuscular Hemoglobin 31.5 pg (27-33); Mean Corpuscular Volume 96.4 fl (85-98); Mean Platelet Volume 10.2 fL (7.4-10.4); Monocytes # 0.1 10^3/uL (0.2-0.9); Neutrophils # 5.72 10^3/uL (1.8-7.7); Nucleated Red Blood Cells % 0 %; Platelet Count 264 10^3/cmm (157-399); Red Blood Count 3.94 10^6/uL (3.85-5.65); White Blood Count 6.82 10^3/uL (3.29-11.43)
[2024-10-31 09:32] LABS: Alanine Aminotransferase < 5 U/L (0-33); Albumin Level 3.6 g/dL (3.5-5.2); Alkaline Phosphatase 131 U/L (35-105); Anion Gap 16.2 (5-19); Aspartate Amino Transferase 16 U/L (0-32); Blood Urea Nitrogen 17 mg/dL (8-23); Calcium 9.4 mg/dL (8.5-10.5); Carbon Dioxide 26 mmol/L (22-29); Chloride 100 mmol/L (98-107); Creatinine Clr Calc Pharmacy 54.4036; Globulin 3.2 g/dL (1.3-4.6); Glucose 145 mg/dL (65-115); Osmolality Calculated 290 mOsm/kg (285-295); Potassium 4.2 mmol/L (3.5-5.1); Sodium 138 mmol/L (136-145); Total Bilirubin 0.5 mg/dL (0.15-1.2); Total Protein 6.8 g/dL (6.6-8.7)
== END 2024-11-01 23:59 | disposition home or self-care (01) ==
PROVIDERS: Internal Medicine; Nurse Practitioner Family; PCP Nurse Practitioner; Visit Provider Internal Medicine Medical Oncology
DX: Z53.9 Procedure and treatment not carried out, unspecified reason (principal); C34.81 Malignant neoplasm of overlapping sites of right bronchus and lung; C79.31 Secondary malignant neoplasm of brain; Z87.891 Personal history of nicotine dependence; Z92.3 Personal history of irradiation; Z79.899 Other long term (current) drug therapy
CPT/HCPCS: 36591; 80053; 82533; 84443; 85025; 96372; 99214; 99215; J3420

== ENCOUNTER → 2025-01-02 11:09 | Outpatient (BNVA) | payer OTHER, SELFPAY | PROVIDERS: PCP Nurse Practitioner; Visit Provider Surgery | DX: Z95.828 Presence of other vascular implants and grafts (principal); C34.91 Malignant neoplasm of unspecified part of right bronchus or lung; C79.31 Secondary malignant neoplasm of brain; Z96.649 Presence of unspecified artificial hip joint | CPT/HCPCS: 36590; 99214 ==